=== PATIENT | male | born 1960 | race Caucasian/White ===

== ENCOUNTER → 2016-06-29 | Outpatient (REF) | payer MEDICARE, MEDICAID ==
[~2016-06-29] MED LIST: *BLDWK6; *BLW9; /DIVA50TA PO; /ESOM40CA; /LAMO10TA PO; /OXCA30TA OR; /PANT40TA OR; /PRAV20TA PO; /QUET10TA PO; /QUET25TA OR; ABIL5TAB PO; ALBUTEROL INHALATION; AMITIZA PO; AMO500 PO; ANUSOLHCSU PR; ATARAX OR; ATIV0.5T OR; ATIV0.5T3 PO; AUG875 PO; BACL10TA2 PO; BOOSLIQ PO; CAHNTIXC PO; CAL/VITD PO; CELE100C OR; CELEXA20; CELEXA20 PO; CEPA5.4L2 PO; CHAN0.5P PO; CHLO200T OR; CHLOR5CA PO; CIALIS PO; CLARITIN10 PO; COLA100C2 OR; COLA50CA3 PO; COLACE PO; COMBAER6 IN; COMBIN INH; COMBIVENT INHALATION; COMBRESP INH; DEPA250T2 PO; DEPA500T2 OR; DEPA500T2 PO; DEPAKOT250; DEPAKOTE PO; DIVA250T7 PO; DIVA500T9 PO; DOCU10CA PO; EFFEXOR XR PO; EUCECRE2 TOP; FIBERCON PO; GABA-279 PO; GABA300C3 PO; GABA600T PO; HABITROL14 TOPICAL; HABITROL21 TOPICAL; HABITROL7 TOPICAL; HYDR25TA8 OR; IBUP200C PO; IBUP200T2 PO; IBUP400T OR; IBUP600T26 PO; INVE6TAB3 OR; KLON0.5T OR; KLONOPIN05; LACT10SO PO; LAMICTAL PO; LEVO50TA4 PO; LEXAPRO OR; MAALOX PO; MEGA40SU PO; MEGACE PO; MULTCAP PO; MULTIVIT; MULTIVIT PO; MULTIVITAM PO; NASONEX NASAL; NEUR PO; NEXI40CA PO; NEXI40GR PO; NEXIUM40 PO; NICO21DI4 TD; NICORETTE PO; NICOTROLIN INHALATION; NIZORALCR TOP; NORMSALNS NASAL; OMEP20CA3 PO; OMEP40CA2 PO; OXYC5TAB2 PO; PAXI10TA2 PO; PAXI20TA3 PO; PEPC20TA2 OR; PEPC40TA OR; POTA20TA PO; POTASSIUM CL ER PO; PREDNISO20 PO; PRIL40CA PO; PROTONIX40 PO; PROVENTIL INHALATION; PROZ20CA OR; PROZ20CA11 PO; PROZ40CA OR; QUET1TAB10 PO; QUET1TAB7 PO; REST15CA PO; REST30CA PO; REST7.5C8; ROBITUSSDM PO; SENOKOTTAB PO; SERO200T PO; SERO200T2 PO; SEROQUE200; SUDAFED30 PO; SYNT50TA PO; SYNTH; SYNTHRO075 PO; Synthroid; TRAZ50TA2 PO; TRIL600T OR; TRIL600T PO; TUMS500C PO; VALI2TAB; VIST25CA PO; VITA100066 PO; ZANT150T; ZANTAC150 PO; ZELNORM PO; ZYPR15TA OR; ZYPR2.5T2 PO; ZYPR5TAB2 PO; [UNRECOGNIZED DRUG - CODE] PO; [UNRECOGNIZED DRUG - OTHER] PO; [UNRECOGNIZED DRUG - OTHER] RECTALLY; [UNRECOGNIZED DRUG - OTHER] TOPICAL; [UNRECOGNIZED DRUG - REMARK] INH; ambien PO; campral PO; depakote PO; seroquel PO; sleep med PO; thyroid medication PO
[2016-06-29 16:26] LABS: FREE T4 0.84 NG/DL (0.76-1.46)
== END ==
LOC: M SFHCPLAZ 14:04
PROVIDERS: ATTEND Physician Assistant Medical
DX: E03.9 Hypothyroidism, unspecified (principal)

== ENCOUNTER → 2016-08-25 | Outpatient (CLI) | payer MEDICARE ==
[~2016-08-25] MED LIST changes: +GABA-282 PO; -GABA300C3 PO
--- NOTE | 2016-08-25 13:58 | REP ---
Whole body PET CT scan: The the patient had a new right lower lobe lung nodule identified on CT dated 07/26/2016 in the anterior basal segment right lower lobe adjacent to the dome of the right hemidiaphragm. This nodule was not present on prior CT studies. Whole body PET / CT scan is performed from skull base to the upper thighs. Neck and supraclavicular areas: There are no hypermetabolic foci. There is artifactual uptake in the arytenoids. There is artifactual radiolabeling of a vascular structure in the left upper extremity, likely from radiotracer infusion. Chest: There are no hypermetabolic foci. The nodular density in the right lower lobe demonstrates no radiotracer uptake. The standard uptake value in this new nodular density is 0.4. Abdomen, pelvis and upper thighs: There are no hypermetabolic foci. There is nonspecific bowel uptake. There are no adrenal or hepatic foci. Impression: Negative whole-body PET / CT scan. There are no hypermetabolic foci. The new lung nodule in the lower lobe of the right lung demonstrates no radiotracer uptake. The study is performed with 9.7 mCi of F 18 FDG Signed by Anjel Carlson MD 08/25/2016 01:49 P
== END ==
LOC: M RAD 10:19
PROVIDERS: ATTEND Physician Assistant Medical
DX: R91.1 Solitary pulmonary nodule (principal)
CPT/HCPCS: 78815; A9552

== ENCOUNTER → 2016-09-14 | Outpatient (REF) | payer MEDICARE, OTHER, MEDICAID | LOC: M SFHCPLAZ 11:30 | PROVIDERS: ATTEND Physician Assistant Medical | DX: D22.9 Melanocytic nevi, unspecified (principal); L82.1 Other seborrheic keratosis ==

== ENCOUNTER → 2016-11-29 | Outpatient (CLI) | payer MEDICARE, MEDICAID ==
--- NOTE | 2016-11-29 15:32 | REP ---
MRI LUMBAR SPINE WITHOUT CONTRAST: HISTORY: Back pain. Decreased signal intensity on T2-weighted images is present in the L2-3 through L5-S1 intervertebral discs. The discs are decreased in height. These findings are consistent with disc degeneration. A diffuse disc bulge is present at the L1-2 level. There is minimal compression of the thecal sac. There is hypertrophy of the posterior articulating facets. The L1 nerves exit the neural foramina without compression. A diffuse disc bulge is present at the L2-3 level. There is minimal compression of the thecal sac. There is hypertrophy of the ligamenta flava and posterior articulating facets. The L2 nerves exit the neural foramina without compression. A diffuse disc bulge is present at the L3-4 level. There is hypertrophy of the ligamenta flava and posterior articulating facets. These findings produce minimal central canal stenosis. The L3 nerves exit the neural foramina without compression. A diffuse disc bulge and small disc protrusion central and eccentric to the left are present at the L4-5 level. There is minimal compression of the thecal sac. There is hypertrophy of the posterior articulating facets. The L4 nerves exit the neural foramina without compression. A diffuse disc bulge is present at the L5-S1 level. There is no thecal sac compression. There is hypertrophy of the posterior articulating facets. The L5 nerves exit the neural foramina without compression. The conus medullaris is normal in appearance terminating at the level of the T12-L1 intervertebral disc. Normal signal intensity is present in the lumbar vertebral bodies. IMPRESSION: Diffuse disc bulges at the L1-2 and L2-3 level with minimal thecal sac compression. Minimal central canal stenosis at the L3-4 level secondary to disc bulge, ligamentous and facet hypertrophy. Diffuse disc bulge and small disc protrusion at the L4-5 level with minimal thecal sac compression. Diffuse disc bulge at the L5-S1 level without thecal sac or nerve compression. Signed by Kody Hubbard MD 11/29/2016 03:36 P
== END ==
LOC: M RAD 13:10
PROVIDERS: ATTEND Physician Assistant Medical
DX: M51.26 Other intervertebral disc displacement, lumbar region (principal); M51.27 Other intervertebral disc displacement, lumbosacral region; M48.06 Spinal stenosis, lumbar region

== ENCOUNTER → 2017-01-27 | Outpatient (REF) | payer MEDICARE, MEDICAID, OTHER ==
[2017-01-27 16:39] LABS: ALBUMIN 3.5 GM/DL (3.2-5.2); ALBUMIN/GLOBULIN RATIO 1.25 (1.00-1.93); ALKALINE PHOSPHATASE 72 U/L (45-117); ALT/SGPT 20 U/L (12-78); AST/SGOT 11 U/L (15-37); BILIRUBIN,DIRECT < 0.1 MG/DL (0.0-0.2); BILIRUBIN,TOTAL 0.3 MG/DL (0.2-1.0); TOTAL PROTEIN 6.3 GM/DL (6.4-8.2)
== END ==
LOC: M LAB REF 13:08
PROVIDERS: ATTEND Psychiatry & Neurology Psychiatry
DX: Z51.81 Encounter for therapeutic drug level monitoring (principal); Z79.899 Other long term (current) drug therapy

== ENCOUNTER → 2017-04-05 | Outpatient (CLI) | payer MEDICARE, MEDICAID | LOC: M PAIN 10:45 | PROVIDERS: ATTEND Nurse Practitioner Family | DX: Z53.29 Procedure and treatment not carried out because of patient's decision for other reasons (principal) ==

== ENCOUNTER → 2017-07-01 | Outpatient (REF) | payer MEDICARE, OTHER, MEDICAID ==
[2017-07-01 18:43] LABS: APPEARANCE, URINE CLEAR (CLEAR); BACTERIA, URINE AUTO NEGATIVE (NEGATIVE); BILIRUBIN, URINE AUTO NEGATIVE (NEGATIVE); BLOOD, URINE BLOOD NEGATIVE (NEGATIVE); COLOR, URINE STRAW (YELLOW); GLUCOSE, URINE (UA) AUTO NEGATIVE (NEGATIVE); KETONE, URINE AUTO NEGATIVE (NEGATIVE); LEUKOCYTE ESTERASE, URINE AUTO NEGATIVE (NEGATIVE); NITRITE, URINE AUTO NEGATIVE (NEGATIVE); PROTEIN, URINE AUTO NEGATIVE (NEGATIVE); RBC, URINE AUTO 0 /HPF (0-3); SPECIFIC GRAVITY URINE AUTO 1.006 (1.002-1.035); SQUAMOUS EPITHELIAL CELL UR AU 0 /HPF (0-6); UROBILINOGEN, URINE AUTO 0.2 mg/dL (0.0-2.0); WBC, URINE AUTO 0 /HPF (0-3)
== END ==
LOC: M SFHCPLAZ 16:07
DX: R35.0 Frequency of micturition (principal)
CPT/HCPCS: 81001

== ENCOUNTER → 2017-07-07 | Outpatient (REF) | payer MEDICARE ==
[2017-07-07 15:43] LABS: OSMOLALITY SERUM 300 MOSM/KG (275-295)
[2017-07-07 15:46] LABS: OSMOLALITY URINE 327 MOSM/KG (500-800)
[2017-07-07 15:53] LABS: APPEARANCE, URINE CLEAR (CLEAR); BACTERIA, URINE AUTO NEGATIVE (NEGATIVE); BILIRUBIN, URINE AUTO NEGATIVE (NEGATIVE); BLOOD, URINE BLOOD NEGATIVE (NEGATIVE); COLOR, URINE YELLOW (YELLOW); GLUCOSE, URINE (UA) AUTO NEGATIVE (NEGATIVE); KETONE, URINE AUTO NEGATIVE (NEGATIVE); LEUKOCYTE ESTERASE, URINE AUTO NEGATIVE (NEGATIVE); NITRITE, URINE AUTO NEGATIVE (NEGATIVE); PROTEIN, URINE AUTO NEGATIVE (NEGATIVE); RBC, URINE AUTO 1 /HPF (0-3); SPECIFIC GRAVITY URINE AUTO 1.008 (1.002-1.035); SQUAMOUS EPITHELIAL CELL UR AU 0 /HPF (0-6); UROBILINOGEN, URINE AUTO 0.2 mg/dL (0.0-2.0); WBC, URINE AUTO 0 /HPF (0-3)
[2017-07-07 15:55] LABS: ALBUMIN 3.6 GM/DL (3.2-5.2); ALBUMIN/GLOBULIN RATIO 1.29 (1.00-1.93); ALKALINE PHOSPHATASE 75 U/L (45-117); ALT/SGPT 31 U/L (12-78); ANION GAP 7 MEQ/L (8-16); AST/SGOT 19 U/L (7-37); BILIRUBIN,TOTAL 0.3 MG/DL (0.2-1.0); BLOOD UREA NITROGEN 24 MG/DL (7-18); CARBON DIOXIDE LEVEL 29 MEQ/L (21-32); CHLORIDE LEVEL 107 MEQ/L (98-107); CREATININE FOR GFR 1.03 MG/DL (0.70-1.30); GLOMERULAR FILTRATION RATE > 60.0 (>56); GLUCOSE, FASTING 60 MG/DL (70-100); POTASSIUM SERUM 4.6 MEQ/L (3.5-5.1); SODIUM LEVEL 143 MEQ/L (136-145); TOTAL PROTEIN 6.4 GM/DL (6.4-8.2)
[2017-07-07 16:00] LABS: ESTIMATED AVERAGE GLUCOSE 108 MG/DL (60-110); HEMOGLOBIN A1c 5.4 %
[2017-07-07 16:04] LABS: SODIUM,RANDOM URINE 57 MEQ/L
== END ==
LOC: M SFHCPLAZ 12:09
DX: R35.8 Other polyuria (principal); Z79.899 Other long term (current) drug therapy
CPT/HCPCS: 83930

== ENCOUNTER → 2017-07-27 | Outpatient (CLI) | payer MEDICARE, MEDICAID ==
[~2017-07-27] MED LIST changes: -*BLDWK6; -*BLW9; -/DIVA50TA PO; -/ESOM40CA; -/LAMO10TA PO; -/OXCA30TA OR; -/PANT40TA OR; -/PRAV20TA PO; -/QUET10TA PO; -/QUET25TA OR; -ABIL5TAB PO; -ALBUTEROL INHALATION; -AMITIZA PO; -AMO500 PO; -ANUSOLHCSU PR; -ATARAX OR; -ATIV0.5T OR; -ATIV0.5T3 PO; -AUG875 PO; -BACL10TA2 PO; -BOOSLIQ PO; -CAHNTIXC PO; -CAL/VITD PO; -CELE100C OR; -CELEXA20; -CELEXA20 PO; -CEPA5.4L2 PO; -CHAN0.5P PO; -CHLO200T OR; -CHLOR5CA PO; -CIALIS PO; -CLARITIN10 PO; -COLA100C2 OR; -COLA50CA3 PO; -COLACE PO; -COMBAER6 IN; -COMBIN INH; -COMBIVENT INHALATION; -COMBRESP INH; -DEPA250T2 PO; -DEPA500T2 OR; -DEPA500T2 PO; -DEPAKOT250; -DEPAKOTE PO; -DIVA250T7 PO; -DIVA500T9 PO; -DOCU10CA PO; -EFFEXOR XR PO; -EUCECRE2 TOP; -FIBERCON PO; -GABA-279 PO; -GABA-282 PO; -GABA600T PO; -HABITROL14 TOPICAL; -HABITROL21 TOPICAL; -HABITROL7 TOPICAL; -HYDR25TA8 OR; -IBUP200C PO; -IBUP200T2 PO; -IBUP400T OR; -IBUP600T26 PO; -INVE6TAB3 OR; +ISOVUE-M 300 61% 15ML VIAL (Q9967) As Ordered; -KLON0.5T OR; -KLONOPIN05; -LACT10SO PO; -LAMICTAL PO; -LEVO50TA4 PO; -LEXAPRO OR; +LIDOCAINE 1% SDV INJ 30 ML VIAL As Ordered; -MAALOX PO; -MEGA40SU PO; -MEGACE PO; -MULTCAP PO; -MULTIVIT; -MULTIVIT PO; -MULTIVITAM PO; -NASONEX NASAL; -NEUR PO; -NEXI40CA PO; -NEXI40GR PO; -NEXIUM40 PO; -NICO21DI4 TD; -NICORETTE PO; -NICOTROLIN INHALATION; -NIZORALCR TOP; -NORMSALNS NASAL; -OMEP20CA3 PO; -OMEP40CA2 PO; -OXYC5TAB2 PO; -PAXI10TA2 PO; -PAXI20TA3 PO; -PEPC20TA2 OR; -PEPC40TA OR; -POTA20TA PO; -POTASSIUM CL ER PO; -PREDNISO20 PO; -PRIL40CA PO; -PROTONIX40 PO; -PROVENTIL INHALATION; -PROZ20CA OR; -PROZ20CA11 PO; -PROZ40CA OR; -QUET1TAB10 PO; -QUET1TAB7 PO; -REST15CA PO; -REST30CA PO; -REST7.5C8; -ROBITUSSDM PO; -SENOKOTTAB PO; -SERO200T PO; -SERO200T2 PO; -SEROQUE200; -SUDAFED30 PO; -SYNT50TA PO; -SYNTH; -SYNTHRO075 PO; -Synthroid; -TRAZ50TA2 PO; -TRIL600T OR; -TRIL600T PO; -TUMS500C PO; -VALI2TAB; -VIST25CA PO; -VITA100066 PO; -ZANT150T; -ZANTAC150 PO; -ZELNORM PO; -ZYPR15TA OR; -ZYPR2.5T2 PO; -ZYPR5TAB2 PO; -[UNRECOGNIZED DRUG - CODE] PO; -[UNRECOGNIZED DRUG - OTHER] PO; -[UNRECOGNIZED DRUG - OTHER] RECTALLY; -[UNRECOGNIZED DRUG - OTHER] TOPICAL; -[UNRECOGNIZED DRUG - REMARK] INH; -ambien PO; -campral PO; -depakote PO; +diazePAM 5 MG TAB As Ordered; +methylPREDNISolone SUSP 40 MG/ML (DEPO-medrol) VIAL (J1030) As Ordered; -seroquel PO; -sleep med PO; -thyroid medication PO
== END ==
LOC: M PAIN 08:30
DX: G89.29 Other chronic pain (principal); M51.16 Intervertebral disc disorders with radiculopathy, lumbar region; I50.9 Heart failure, unspecified; D64.9 Anemia, unspecified; N40.0 Benign prostatic hyperplasia without lower urinary tract symptoms; K59.00 Constipation, unspecified; F31.9 Bipolar disorder, unspecified; K64.8 Other hemorrhoids; F17.210 Nicotine dependence, cigarettes, uncomplicated; Z79.899 Other long term (current) drug therapy; Z88.8 Allergy status to other drugs, medicaments and biological substances
CPT/HCPCS: J1030

== ENCOUNTER → 2017-08-18 | Outpatient (CLI) | payer MEDICARE, MEDICAID | LOC: M PAIN 09:00 | DX: M46.1 Sacroiliitis, not elsewhere classified (principal); M51.26 Other intervertebral disc displacement, lumbar region; F17.210 Nicotine dependence, cigarettes, uncomplicated; F31.9 Bipolar disorder, unspecified; N40.0 Benign prostatic hyperplasia without lower urinary tract symptoms; K59.00 Constipation, unspecified; Z79.899 Other long term (current) drug therapy; Z88.8 Allergy status to other drugs, medicaments and biological substances | CPT/HCPCS: G0463 ==

== ENCOUNTER → 2017-10-27 | Outpatient (REF) | payer MEDICARE, MEDICAID | LOC: M SFHCPLAZ 09:30 | DX: R63.4 Abnormal weight loss (principal); Z53.8 Procedure and treatment not carried out for other reasons ==

== ENCOUNTER → 2018-04-19 | Outpatient (REF) | payer MEDICARE, MEDICAID, OTHER ==
[2018-04-19 12:47] LABS: ALBUMIN 3.5 GM/DL (3.2-5.2); ALBUMIN/GLOBULIN RATIO 1.35 (1.00-1.93); ALKALINE PHOSPHATASE 73 U/L (45-117); ALT/SGPT 48 U/L (12-78); ANION GAP 7 MEQ/L (8-16); AST/SGOT 26 U/L (7-37); BILIRUBIN,TOTAL 0.3 MG/DL (0.2-1.0); BLOOD UREA NITROGEN 20 MG/DL (7-18); CALCIUM LEVEL 8.9 MG/DL (8.5-10.1); CARBON DIOXIDE LEVEL 29 MEQ/L (21-32); CHLORIDE LEVEL 105 MEQ/L (98-107); CREATININE FOR GFR 1.11 MG/DL (0.70-1.30); GLOMERULAR FILTRATION RATE > 60.0 (>56); GLUCOSE, FASTING 68 MG/DL (70-100); POTASSIUM SERUM 4.7 MEQ/L (3.5-5.1); SODIUM LEVEL 141 MEQ/L (136-145); TOTAL PROTEIN 6.1 GM/DL (6.4-8.2)
== END ==
LOC: M SFHCPLAZ 10:04
DX: R59.1 Generalized enlarged lymph nodes (principal)
CPT/HCPCS: 80053

== ENCOUNTER → 2018-05-04 | Outpatient (CLI) | payer MEDICARE, MEDICAID | LOC: M RAD 10:09 | DX: M47.896 Other spondylosis, lumbar region (principal); Z96.698 Presence of other orthopedic joint implants | CPT/HCPCS: 78306 ==

== ENCOUNTER → 2018-05-31 | Outpatient (REF) | payer MEDICARE, MEDICAID ==
[~2018-05-31] MED LIST changes: +*BLDWK6; +*BLW9; +/DIVA50TA PO; +/ESOM40CA; +/LAMO10TA PO; +/OXCA30TA OR; +/PANT40TA OR; +/PRAV20TA PO; +/QUET10TA PO; +/QUET25TA OR; +ABIL5TAB PO; +ALBUTEROL INHALATION; +AMITIZA PO; +AMO500 PO; +ANUSOLHCSU PR; +ATARAX OR; +ATIV0.5T OR; +ATIV0.5T3 PO; +AUG875 PO; +BACL10TA2 PO; +BOOSLIQ PO; +CAHNTIXC PO; +CAL/VITD PO; +CELE100C OR; +CELEXA20; +CELEXA20 PO; +CEPA5.4L2 PO; +CHAN0.5P PO; +CHLO200T OR; +CHLOR5CA PO; +CIALIS PO; +CLARITIN10 PO; +COLA100C2 OR; +COLA50CA3 PO; +COLACE PO; +COMBAER6 IN; +COMBIN INH; +COMBIVENT INHALATION; +COMBRESP INH; +DEPA250T2 PO; +DEPA500T2 OR; +DEPA500T2 PO; +DEPAKOT250; +DEPAKOTE PO; +DIVA250T7 PO; +DIVA500T9 PO; +DOCU10CA PO; +EFFEXOR XR PO; +EUCECRE2 TOP; +FIBERCON PO; +GABA-1171 PO; +GABA-843 PO; +GABA600T4 PO; +HABITROL14 TOPICAL; +HABITROL21 TOPICAL; +HABITROL7 TOPICAL; +HYDR25TA8 OR; +IBUP200C PO; +IBUP200T2 PO; +IBUP400T OR; +IBUP600T26 PO; +INVE6TAB3 OR; -ISOVUE-M 300 61% 15ML VIAL (Q9967) As Ordered; +KLON0.5T OR; +KLONOPIN05; +LACT10SO PO; +LAMICTAL PO; +LEVO50TA4 PO; +LEXAPRO OR; -LIDOCAINE 1% SDV INJ 30 ML VIAL As Ordered; +MAALOX PO; +MEGA40SU PO; +MEGACE PO; +MULTCAP PO; +MULTIVIT; +MULTIVIT PO; +MULTIVITAM PO; +NASONEX NASAL; +NEUR PO; +NEXI40CA PO; +NEXI40GR PO; +NEXIUM40 PO; +NICO21DI4 TD; +NICORETTE PO; +NICOTROLIN INHALATION; +NIZORALCR TOP; +NORMSALNS NASAL; +OMEP20CA3 PO; +OMEP40CA2 PO; +OXYC5TAB2 PO; +PAXI10TA2 PO; +PAXI20TA3 PO; +PEPC20TA2 OR; +PEPC40TA OR; +POTA20TA PO; +POTASSIUM CL ER PO; +PREDNISO20 PO; +PRIL40CA PO; +PROTONIX40 PO; +PROVENTIL INHALATION; +PROZ20CA OR; +PROZ20CA11 PO; +PROZ40CA OR; +QUET1TAB10 PO; +QUET1TAB7 PO; +REST15CA PO; +REST30CA PO; +REST7.5C8; +ROBITUSSDM PO; +SENOKOTTAB PO; +SERO200T PO; +SERO200T2 PO; +SEROQUE200; +SUDAFED30 PO; +SYNT50TA PO; +SYNTH; +SYNTHRO075 PO; +Synthroid; +TRAZ50TA2 PO; +TRIL600T OR; +TRIL600T PO; +TUMS500C PO; +VALI2TAB; +VIST25CA PO; +VITA100066 PO; +ZANT150T; +ZANTAC150 PO; +ZELNORM PO; +ZYPR15TA OR; +ZYPR2.5T2 PO; +ZYPR5TAB2 PO; +[UNRECOGNIZED DRUG - CODE] PO; +[UNRECOGNIZED DRUG - OTHER] PO; +[UNRECOGNIZED DRUG - OTHER] RECTALLY; +[UNRECOGNIZED DRUG - OTHER] TOPICAL; +[UNRECOGNIZED DRUG - REMARK] INH; +ambien PO; +campral PO; +depakote PO; -diazePAM 5 MG TAB As Ordered; -methylPREDNISolone SUSP 40 MG/ML (DEPO-medrol) VIAL (J1030) As Ordered; +seroquel PO; +sleep med PO; +thyroid medication PO
[2018-05-31 17:32] LABS: BASO # 0.1 10^3/uL (0.0-0.2); BASO % 1.3 % (0.0-1.0); EOS # 0.3 10^3/uL (0.0-0.50); EOS % 4.7 % (0.0-3.0); HEMATOCRIT 36.9 % (42.0-52.0); HEMOGLOBIN 12.3 g/dl (13.5-17.5); LYMPH # 2.2 10^3/uL (1.5-4.5); LYMPH % 35.9 % (24.0-44.0); MEAN CORPUSCULAR HEMOGLOBIN 31.9 pg (27.0-33.0); MEAN CORPUSCULAR HGB CONC 33.3 g/dl (32.0-36.5); MEAN CORPUSCULAR VOLUME 95.8 fl (80.0-96.0); MONO # 0.7 10^3/uL (0.0-0.8); MONO % 11.9 % (0.0-5.0); NEUTROPHILS # 2.8 10^3/uL (1.8-7.7); PLATELET COUNT, AUTOMATED 252 10^3/uL (150-450); RED BLOOD COUNT 3.85 10^6/uL (4.30-6.10); WHITE BLOOD COUNT 6.1 10^3/uL (4.0-10.0)
== END ==
LOC: M SFHCPLAZ 15:31
PROVIDERS: ATTEND Physician Assistant Medical
DX: K92.1 Melena (principal)
CPT/HCPCS: 36415; 85025; G0463

== ENCOUNTER → 2018-06-08 | Outpatient (REF) | payer MEDICARE, MEDICAID ==
[2018-06-08 12:21] LABS: ALBUMIN 3.6 GM/DL (3.2-5.2); ALT/SGPT 34 U/L (12-78); BILIRUBIN,TOTAL 0.3 MG/DL (0.2-1.0); BLOOD UREA NITROGEN 24 MG/DL (7-18); CALCIUM LEVEL 9.1 MG/DL (8.5-10.1); CARBON DIOXIDE LEVEL 29 MEQ/L (21-32); CHLORIDE LEVEL 108 MEQ/L (98-107); CREATININE FOR GFR 1.16 MG/DL (0.70-1.30); FERRITIN 83 NG/ML (26-388); FREE T4 0.69 NG/DL (0.76-1.46); GLOMERULAR FILTRATION RATE > 60.0 (>56); GLUCOSE, FASTING 62 MG/DL (70-100); IRON (FE) 105 UG/DL (65-175); PERCENT SATURATION 42.3 % (19.7-50.0); POTASSIUM SERUM 4.7 MEQ/L (3.5-5.1); SODIUM LEVEL 142 MEQ/L (136-145); TOTAL IRON BINDING CAPACITY 248 UG/DL (250-450); TOTAL PROTEIN 5.8 GM/DL (6.4-8.2)
[2018-06-08 12:38] LABS: BASO # 0.1 10^3/uL (0.0-0.2); BASO % 1.3 % (0.0-1.0); EOS # 0.2 10^3/uL (0.0-0.50); EOS % 2.7 % (0.0-3.0); HEMATOCRIT 36.8 % (42.0-52.0); HEMOGLOBIN 12.2 g/dl (13.5-17.5); LYMPH # 2.1 10^3/uL (1.5-4.5); LYMPH % 29.8 % (24.0-44.0); MEAN CORPUSCULAR HEMOGLOBIN 31.7 pg (27.0-33.0); MEAN CORPUSCULAR HGB CONC 33.2 g/dl (32.0-36.5); MEAN CORPUSCULAR VOLUME 95.6 fl (80.0-96.0); MONO # 0.9 10^3/uL (0.0-0.8); MONO % 12.4 % (0.0-5.0); NEUTROPHILS # 3.8 10^3/uL (1.8-7.7); NEUTROPHILS % 53.5 % (36.0-66.0); PLATELET COUNT, AUTOMATED 287 10^3/uL (150-450); RED BLOOD COUNT 3.85 10^6/uL (4.30-6.10); WHITE BLOOD COUNT 7.1 10^3/uL (4.0-10.0)
== END ==
LOC: M SFHCPLAZ 09:38
PROVIDERS: ATTEND Physician Assistant Medical
DX: K92.1 Melena (principal); E03.9 Hypothyroidism, unspecified
CPT/HCPCS: 36415; 80053; 82728; 83550; 84439; 84443; 85025; G0463

== ENCOUNTER → 2018-09-05 | Outpatient (REF) | payer MEDICARE, MEDICAID ==
[~2018-09-05] MED LIST changes: -/DIVA50TA PO; -/ESOM40CA; -/LAMO10TA PO; -/OXCA30TA OR; -/PANT40TA OR; -/PRAV20TA PO; -/QUET10TA PO; -/QUET25TA OR; +CHLO1CAP7 PO; -CHLOR5CA PO; +DEPA1TAB3 PO; +LAMI1TAB7 PO; +LEXA1TAB OR; -LEXAPRO OR; +NEXI1CAP3; +PRAV1TAB39 PO; +PROT1TAB2 OR; +SERO1TAB PO; +SERO1TAB3 OR; +TRIL1TAB OR
[2018-09-05 13:51] LABS: FREE T4 0.7 NG/DL (0.76-1.46); THYROID STIMULATING HORMONE 2.88 uIU/ML (0.358-3.740)
== END ==
LOC: M SFHCPLAZ 10:52
PROVIDERS: ATTEND Physician Assistant Medical
DX: E03.9 Hypothyroidism, unspecified (principal)
CPT/HCPCS: 36415; 84439; 84443; G0463

== ENCOUNTER → 2018-09-12 | Outpatient (REF) | payer MEDICARE, MEDICAID ==
[2018-09-12 14:28] LABS: APPEARANCE, URINE CLEAR (CLEAR); BACTERIA, URINE AUTO NEGATIVE (NEGATIVE); BILIRUBIN, URINE AUTO NEGATIVE (NEGATIVE); BLOOD, URINE BLOOD NEGATIVE (NEGATIVE); COLOR, URINE YELLOW (YELLOW); GLUCOSE, URINE (UA) AUTO NEGATIVE (NEGATIVE); KETONE, URINE AUTO NEGATIVE (NEGATIVE); LEUKOCYTE ESTERASE, URINE AUTO NEGATIVE (NEGATIVE); NITRITE, URINE AUTO NEGATIVE (NEGATIVE); PROTEIN, URINE AUTO NEGATIVE (NEGATIVE); RBC, URINE AUTO 0 /HPF (0-3); SPECIFIC GRAVITY URINE AUTO 1.008 (1.002-1.035); SQUAMOUS EPITHELIAL CELL UR AU 0 /HPF (0-6); UROBILINOGEN, URINE AUTO 0.2 mg/dL (0.0-2.0); WBC, URINE AUTO 0 /HPF (0-3)
[2018-09-12 14:37] LABS: ALBUMIN 3.5 GM/DL (3.2-5.2); ALT/SGPT 48 U/L (12-78); BILIRUBIN,TOTAL 0.3 MG/DL (0.2-1.0); BLOOD UREA NITROGEN 25 MG/DL (7-18); CARBON DIOXIDE LEVEL 30 MEQ/L (21-32); CHLORIDE LEVEL 108 MEQ/L (98-107); CREATININE FOR GFR 1.24 MG/DL (0.70-1.30); GLOMERULAR FILTRATION RATE > 60.0 (>56); GLUCOSE, FASTING 63 MG/DL (70-100); MAGNESIUM LEVEL 1.9 MG/DL (1.8-2.4); SODIUM LEVEL 142 MEQ/L (136-145); TOTAL PROTEIN 5.7 GM/DL (6.4-8.2)
== END ==
LOC: M SFHCPLAZ 10:41
PROVIDERS: ATTEND Physician Assistant Medical
DX: R35.0 Frequency of micturition (principal); N40.1 Benign prostatic hyperplasia with lower urinary tract symptoms
CPT/HCPCS: 36415; 51798; 80053; 80164; 81001; 83735; 84153; 87086; G0463

== ENCOUNTER → 2018-09-12 | Outpatient (REF) | payer MEDICARE, MEDICAID ==
[2018-09-12 14:39] LABS: ALBUMIN 3.2 GM/DL (3.2-5.2); ALT/SGPT 50 U/L (12-78); BILIRUBIN,DIRECT < 0.1 MG/DL (0.0-0.2); BILIRUBIN,TOTAL 0.3 MG/DL (0.2-1.0); TOTAL PROTEIN 5.9 GM/DL (6.4-8.2); VALPROIC ACID (DEPAKOTE) 52.1 UG/ML (50.0-100.0)
== END ==
LOC: M LABDRAWP 10:47
PROVIDERS: ATTEND Psychiatry & Neurology Psychiatry
DX: Z51.81 Encounter for therapeutic drug level monitoring (principal); Z79.899 Other long term (current) drug therapy

== ENCOUNTER → 2018-10-20 | Outpatient (REF) | payer MEDICARE, MEDICAID ==
[2018-10-20 12:23] LABS: INR 1.02; PROTHROMBIN TIME 13.5 SECONDS (12.1-14.4)
[2018-10-20 12:24] LABS: PARTIAL THROMBOPLASTIN TIME 33.5 SECONDS (25.4-37.6)
== END ==
LOC: M LABDRAWP 09:45
PROVIDERS: ATTEND Physician Assistant
DX: D69.1 Qualitative platelet defects (principal)

== ENCOUNTER → 2018-12-05 | Outpatient (REF) | payer MEDICARE, MEDICAID ==
[~2018-12-05] MED LIST changes: +BUSP15TA47 PO; +LEVO25TA5 PO; +PROAAER10 INH; +TIZA2TAB4 PO
[2018-12-05 16:06] LABS: BASO # 0.1 10^3/uL (0.0-0.2); BASO % 0.6 % (0.0-1.0); EOS # 0.4 10^3/uL (0.0-0.50); EOS % 3.3 % (0.0-3.0); HEMATOCRIT 34.3 % (42.0-52.0); HEMOGLOBIN 11.8 g/dl (13.5-17.5); LYMPH # 2.1 10^3/uL (1.5-4.5); LYMPH % 19.3 % (24.0-44.0); MEAN CORPUSCULAR HGB CONC 34.4 g/dl (32.0-36.5); MEAN CORPUSCULAR VOLUME 95.8 fl (80.0-96.0); MONO # 1.2 10^3/uL (0.0-0.8); MONO % 10.8 % (0.0-5.0); NEUTROPHILS # 7.2 10^3/uL (1.8-7.7); NEUTROPHILS % 65.7 % (36.0-66.0); PLATELET COUNT, AUTOMATED 226 10^3/uL (150-450); RED BLOOD COUNT 3.58 10^6/uL (4.30-6.10); WHITE BLOOD COUNT 10.9 10^3/uL (4.0-10.0)
[2018-12-05 16:39] LABS: FREE T4 0.64 NG/DL (0.76-1.46); THYROID STIMULATING HORMONE 2.98 uIU/ML (0.358-3.740)
== END ==
LOC: M SFHCPLAZ 14:18
PROVIDERS: ATTEND Physician Assistant Medical
DX: E03.9 Hypothyroidism, unspecified (principal); D53.9 Nutritional anemia, unspecified

== ENCOUNTER → 2018-12-14 | Outpatient (REF) | payer MEDICARE, MEDICAID ==
[~2018-12-14] MED LIST changes: -BUSP15TA47 PO; -LEVO25TA5 PO; -PROAAER10 INH; -TIZA2TAB4 PO
[2018-12-14 12:46] LABS: BASO # 0.1 10^3/uL (0.0-0.2); BASO % 1.3 % (0.0-1.0); EOS # 0.2 10^3/uL (0.0-0.50); EOS % 2.7 % (0.0-3.0); HEMATOCRIT 36.9 % (42.0-52.0); HEMOGLOBIN 12.6 g/dl (13.5-17.5); LYMPH % 29.5 % (24.0-44.0); MEAN CORPUSCULAR HEMOGLOBIN 31.9 pg (27.0-33.0); MEAN CORPUSCULAR HGB CONC 34.1 g/dl (32.0-36.5); MEAN CORPUSCULAR VOLUME 93.4 fl (80.0-96.0); MONO % 14.6 % (0.0-5.0); NEUTROPHILS # 3.5 10^3/uL (1.8-7.7); NEUTROPHILS % 51.6 % (36.0-66.0); PLATELET COUNT, AUTOMATED 271 10^3/uL (150-450); RED BLOOD COUNT 3.95 10^6/uL (4.30-6.10); WHITE BLOOD COUNT 6.8 10^3/uL (4.0-10.0)
[2018-12-14 13:12] LABS: ALBUMIN 3.7 GM/DL (3.2-5.2); ALT/SGPT 41 U/L (12-78); BILIRUBIN,TOTAL 0.5 MG/DL (0.2-1.0); BLOOD UREA NITROGEN 22 MG/DL (7-18); CALCIUM LEVEL 10.4 MG/DL (8.5-10.1); CARBON DIOXIDE LEVEL 29 MEQ/L (21-32); CHLORIDE LEVEL 105 MEQ/L (98-107); CREATININE FOR GFR 1.24 MG/DL (0.70-1.30); FERRITIN 105 NG/ML (26-388); GLOMERULAR FILTRATION RATE > 60.0 (>56); GLUCOSE, FASTING 77 MG/DL (70-100); IRON (FE) 168 UG/DL (65-175); LIPASE 93 U/L (73-393); PERCENT SATURATION 61.8 % (19.7-50.0); POTASSIUM SERUM 4.5 MEQ/L (3.5-5.1); SODIUM LEVEL 141 MEQ/L (136-145); TOTAL IRON BINDING CAPACITY 272 UG/DL (250-450); TOTAL PROTEIN 6.3 GM/DL (6.4-8.2)
== END ==
LOC: M SFHCPLAZ 11:13
PROVIDERS: ATTEND Physician Assistant Medical
DX: D53.9 Nutritional anemia, unspecified (principal); R10.9 Unspecified abdominal pain

== ENCOUNTER → 2019-01-16 | Outpatient (CLI) | payer MEDICARE, MEDICAID ==
--- NOTE | 2019-01-17 12:03 | REP ---
Clinical: Lung screening. History smoking. Comparison: None Technique: Axial low-dose noncontrast images from the thoracic inlet to the upper abdomen using lung screening technique. Findings: The lung guaman are well-aerated. Nodular and vague areas of density in the right lower lobe measure up to approximately 9 mm along with irregular nodular density in the medial left lower lobe measuring up to 10 mm (image 65). Chronic interstitial changes and mild scarring noted. No effusion. No pneumothorax. Impression: Lung-RADS category IV-A. Short-term follow-up examination in 3 months is recommended. Electronically Signed by Hill Avila MD 01/17/2019 06:21 A
== END ==
LOC: M RAD 09:48
PROVIDERS: ATTEND Internal Medicine Pulmonary Disease
DX: F17.218 Nicotine dependence, cigarettes, with other nicotine-induced disorders (principal); J44.9 Chronic obstructive pulmonary disease, unspecified; R91.8 Other nonspecific abnormal finding of lung field

== ENCOUNTER → 2019-01-23 | Outpatient (REF) | payer MEDICARE, MEDICAID ==
[~2019-01-23] MED LIST changes: +BUSP15TA47 PO; +LEVO25TA5 PO; +PROAAER10 INH; +TIZA2TAB4 PO
[2019-01-23 12:57] LABS: BASO # 0.1 10^3/uL (0.0-0.2); BASO % 1.4 % (0.0-1.0); EOS # 0.1 10^3/uL (0.0-0.5); EOS % 2.2 % (0.0-3.0); HEMATOCRIT 34.9 % (42.0-52.0); HEMOGLOBIN 11.8 g/dl (13.5-17.5); LYMPH # 1.8 10^3/uL (1.5-5.0); MEAN CORPUSCULAR HEMOGLOBIN 33.1 pg (27.0-33.0); MEAN CORPUSCULAR HGB CONC 33.8 g/dl (32.0-36.5); MEAN CORPUSCULAR VOLUME 97.8 fl (80.0-96.0); MONO # 0.6 10^3/uL (0.0-0.8); MONO % 11.5 % (0.0-5.0); NEUTROPHILS # 2.9 10^3/uL (1.5-8.5); NEUTROPHILS % 51.5 % (36.0-66.0); PLATELET COUNT, AUTOMATED 265 10^3/uL (150-450); RED BLOOD COUNT 3.57 10^6/uL (4.30-6.10); WHITE BLOOD COUNT 5.6 10^3/uL (4.0-10.0)
[2019-01-23 13:13] LABS: ALBUMIN 3.2 GM/DL (3.2-5.2); BILIRUBIN,TOTAL 0.4 MG/DL (0.2-1.0); CALCIUM LEVEL 9.2 MG/DL (8.5-10.1); CREATININE FOR GFR 1.37 MG/DL (0.70-1.30); FREE T4 0.65 NG/DL (0.76-1.46); GLOMERULAR FILTRATION RATE 56.8 (>56); POTASSIUM SERUM 4.1 MEQ/L (3.5-5.1); THYROID STIMULATING HORMONE 7.14 uIU/ML (0.358-3.740); VALPROIC ACID (DEPAKOTE) 75.7 UG/ML (50.0-100.0)
== END ==
LOC: M SFHCPLAZ 09:46
PROVIDERS: ATTEND Physician Assistant Medical
DX: D64.9 Anemia, unspecified (principal); F41.9 Anxiety disorder, unspecified; R63.4 Abnormal weight loss; E83.52 Hypercalcemia
CPT/HCPCS: 36415; 80053; 80164; 84439; 84443; 85025; G0463

== ENCOUNTER → 2019-04-30 | Outpatient (REF) | payer MEDICARE ==
[2019-04-30 16:49] LABS: AMORPHOUS SEDIMENT SMALL (NEGATIVE); APPEARANCE, URINE CLEAR (CLEAR); BACTERIA, URINE AUTO NEGATIVE (NEGATIVE); BILIRUBIN, URINE AUTO NEGATIVE (NEGATIVE); BLOOD, URINE BLOOD NEGATIVE (NEGATIVE); COLOR, URINE YELLOW (YELLOW); GLUCOSE, URINE (UA) AUTO NEGATIVE (NEGATIVE); KETONE, URINE AUTO NEGATIVE (NEGATIVE); LEUKOCYTE ESTERASE, URINE AUTO NEGATIVE (NEGATIVE); NITRITE, URINE AUTO NEGATIVE (NEGATIVE); PROTEIN, URINE AUTO NEGATIVE (NEGATIVE); RBC, URINE AUTO 2 /HPF (0-3); SPECIFIC GRAVITY URINE AUTO 1.013 (1.002-1.035); SQUAMOUS EPITHELIAL CELL UR AU 0 /HPF (0-6); UROBILINOGEN, URINE AUTO 0.2 mg/dL (0.0-2.0); WBC, URINE AUTO 0 /HPF (0-3)
== END ==
LOC: M SFHCPLAZ 15:43
PROVIDERS: ATTEND Physician Assistant Medical
DX: R30.0 Dysuria (principal)
CPT/HCPCS: 81001; 87086; G0463

== ENCOUNTER → 2019-05-08 | Outpatient (CLI) | payer MEDICARE, MEDICAID ==
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
== END ==
LOC: M PAIN 14:15
PROVIDERS: ATTEND Nurse Practitioner Family
DX: M47.816 Spondylosis without myelopathy or radiculopathy, lumbar region (principal)

== ENCOUNTER → 2019-05-30 | Outpatient (REF) | payer MEDICARE, MEDICAID ==
[2019-05-30 11:08] LABS: FREE T4 0.68 NG/DL (0.76-1.46); THYROID STIMULATING HORMONE 3.31 uIU/ML (0.358-3.740)
== END ==
LOC: M SFHCPLAZ 08:46
PROVIDERS: ATTEND Physician Assistant Medical
DX: E03.9 Hypothyroidism, unspecified (principal)
CPT/HCPCS: 36415; 84439; 84443; G0463

== ENCOUNTER → 2019-07-03 | Outpatient (REF) | payer MEDICARE, MEDICAID ==
[2019-07-03 11:38] LABS: ALBUMIN 3.4 GM/DL (3.2-5.2); ALT/SGPT 40 U/L (12-78); AMYLASE 24 U/L (25-115); BILIRUBIN,TOTAL 0.3 MG/DL (0.2-1.0); BLOOD UREA NITROGEN 25 MG/DL (7-18); CALCIUM LEVEL 9.2 MG/DL (8.5-10.1); CARBON DIOXIDE LEVEL 30 MEQ/L (21-32); CHLORIDE LEVEL 109 MEQ/L (98-107); CREATININE FOR GFR 1.19 MG/DL (0.70-1.30); FREE T4 0.82 NG/DL (0.76-1.46); GLOMERULAR FILTRATION RATE > 60.0 (>56); GLUCOSE, FASTING 71 MG/DL (70-100); LIPASE 90 U/L (73-393); POTASSIUM SERUM 4.2 MEQ/L (3.5-5.1); SODIUM LEVEL 143 MEQ/L (136-145); TOTAL PROTEIN 6.3 GM/DL (6.4-8.2)
== END ==
LOC: M SFHCPLAZ 09:25
PROVIDERS: ATTEND Physician Assistant Medical
DX: R10.11 Right upper quadrant pain (principal); E03.9 Hypothyroidism, unspecified; R30.0 Dysuria

== ENCOUNTER → 2019-07-25 | Outpatient (REF) | payer MEDICARE, MEDICAID ==
[2019-07-25 17:53] LABS: FREE T4 0.92 NG/DL (0.76-1.46); THYROID STIMULATING HORMONE 2.41 uIU/ML (0.358-3.740)
== END ==
LOC: M SFHCPLAZ 13:18
PROVIDERS: ATTEND Physician Assistant Medical
DX: E03.9 Hypothyroidism, unspecified (principal)

== ENCOUNTER → 2019-09-07 | Outpatient (CLI) | payer MEDICARE, MEDICAID | LOC: M PAIN 09:30 | PROVIDERS: ATTEND Anesthesiology | DX: R10.11 Right upper quadrant pain (principal); Z53.29 Procedure and treatment not carried out because of patient's decision for other reasons ==

== ENCOUNTER → 2019-09-07 | Outpatient (CLI) | payer MEDICARE, MEDICAID ==
--- NOTE | 2019-09-11 23:36 | ECWPNPC ---
PATIENT NAME: PREET MCGARRY : 1960 GENDER: MALE VISIT DATE: 09/07/2019 DISCHARGE DATE: 09/07/19 1608 VISIT LOCKED DATE TIME: PHYSICIAN: BETH HILLIARD MD RESOURCE: BETH HILLIARD MD HISTORY OF PRESENT ILLNESS HISTORY OF PRESENT ILLNESS: PAIN THE PATIENT DESCRIBES THE PAIN... PERMISSION FROM PATIENT WAS RECEIVED TO DO TELEPHONE OFFICE VISIT. 59 YEAR OLD MALE PATIENT WITH A HISTORY OF CHRONIC LOW BACK PAIN. THE PATIENT DESCRIBES THE PAIN ACHING, HAVE IT ALL THE TIME, STABBING WITH A PAIN SCORE OF 6-9/10 DEPENDING ON PHYSICAL ACTIVITY. THE PATIENT STATES HE HAS BEEN SUFFERING FROM HIS PAIN FOR MANY YEARS AND IT IS AFFECTING HIS ABILITY TO PERFORM HIS DAILY ACTIVITIES SUCH MOVING AROUND, WORKING AROUND HIS HOUSE, AND CLEANING. THE PATIENT SAYS HE HAS RECEIVED INJECTION THERAPY IN THE PAST. PATIENT DENIES UNEXPLAINABLE WEIGHT LOSS, FEVER, CHILLS, NEW CHANGES ON HIS URINARY OR BOWEL CONTROL. FALL RISK SCREENING: SCREENING :NO FALLS REPORTED IN THE LAST YEAR CURRENT MEDICATIONS TAKING NEXIUM 40 MG CAPSULE DELAYED RELEASE 1 CAPSULE ORALLY TWICE DAILY TAKING ACETAMINOPHEN 500 MG CAPSULE 1 TABLET NEEDED ORALLY EVERY 6 HRS TAKING NAPROXEN 250 MG TABLET 1 TABLET WITH FOOD OR MILK ORALLY TWICE A DAY TAKING DEPAKOTE 500 MG TABLET DELAYED RELEASE 2 TABLET ORALLY BEFORE BEDTIME TAKING SEROQUEL 400 MG TABLET 1 TABLET AT BEDTIME ORALLY ONCE A DAY TAKING BUSPAR 30 MG TABLET 1 TABLET ORALLY BEFORE BEDTIME, NOTES: NOT SURE OF DOSE TAKING LEVOTHROID 75 MCG TABLET 1 TABLET IN THE MORNING ON AN EMPTY STOMACH ORALLY ONCE A DAY NOT-TAKING CARAFATE 1 GM TABLET 1 TABLET ON AN EMPTY STOMACH ORALLY TWICE A DAY NOT-TAKING TIZANIDINE HCL 4 MG TABLET 1 TABLET NEEDED ORALLY THREE TIMES A DAY MEDICATION LIST REVIEWED AND RECONCILED WITH THE PATIENT PAST MEDICAL HISTORY CHF ON MEGACE LEFT ANKLE COMPLEX TALUS FRACTURE, MALUNION 11/27/2013; SUBSEQUENT FUSION 06/17/15 HEMATOCHEZIA-NONTHROMBOSED EXT. HEMORRHOIDS, 01/2016; INT. HEMORRHOIDS, 4 DIMINUTIVE POLYPS @ RETRO SIGMOID COLON, BENIGN & RESECTED & RETRIEVED 02/04/16 FOR 3Y F/U ANEMIA H/O ALCOHOL ABUSE BPH ON DOXAZOSIN CHRONIC CONSTIPATION BILATERAL CATARACT REMOVAL BIPOLAR-IMH 09/09/13DISCHARGED ON PAXIL 10MG QAM, DEPAKOTE 500MG BID, LAMICTAL 100MG BID EATING DISORDER COPD ANXIETY DEPRESSION ALLERGIES HALDOL: AGITATED - ALLERGY MEGACE ORAL: CHF - SIDE EFFECTS - ONSET DATE 09/11/2018 SURGICAL HISTORY LEFT ANKLE ORIF X3 2014, 2015, 2016 HEMORRHOIDECTOMY X 2 HEMANGIOMA LIP CHOLECYSTECTOMY 2009 S/P L TIBIOTALAR CALCANEAL FUSION C ILIAC CREST AUTOGRAFT DR. ZABALA [facility] 06/17/[address] ROB 01/13/[address] ROB 12/2016 L) ANKLE 12/04/18 FAMILY HISTORY FATHER: 58 YRS, DIAGNOSED WITH HYPERTENSION, OTHER MALIGNANT NEOPLASM OF UNSPECIFIED SITE, OTHER SPECIFIED CONDITIONS INFLUENCING HEALTH STATUS MOTHER: 90 YRS, HYPERTENSION, UNSPECIFIED HEART DISEASE, UNSPECIFIED CEREBRAL ARTERY OCCLUSION WITH CEREBRAL INFARCTION 2 BROTHER(S) , 4 SISTER(S) - HEALTHY. DAD OF STOMACHE CA, MOTHER HAS OA AFFECTS HER WALKING\\\\NSIBLINGS 2 BRO.S, 4SISTERS DAD OF STOMACHE CA, MOTHER HAS OA AFFECTS HER WALKING\\\\NSIBLINGS 2 BRO.S, 4SISTERS. SOCIAL HISTORY GENERAL: TOBACCO USE ARE YOU A:CURRENT SMOKER ARE YOU INTERESTED IN QUITTING?THINKING ABOUT QUITTING TRYING TO QUIT COUNSELED THE PATIENT ON SMOKING CESSATION, EDUCATION [id number]/17/2020 HOW MANY CIGARETTES A DAY DO YOU SMOKE?11-20 HOW SOON AFTER YOU WAKE UP DO YOU SMOKE YOUR FIRST CIGARETTE?AFTER 60 MIN HOW OFTEN DO YOU SMOKE CIGARETTES?EVERY DAY PATIENT COUNSELED ON THE DANGERS OF TOBACCO USE AND URGED TO QUIT:06/18/2019 SMOKING CESSATION INFORMATION GIVEN06/18/2019 07/27/17 STATES HE HAS VAPORNO E-CIGARETTENO LATEX QUESTIONNAIRE LATEX ALLERGY : HAVE YOU EVER DEVELOPED ANY TYPE OF REACTION AFTER HANDLING LATEX PRODUCTS SUCH RUBBER GLOVES, CONDOMS, DIAPHRAGMS, BALLOONS, SOCKS, OR UNDERWEAR?NO LATEX ALLERGY : HAVE YOU EVER DEVELOPED ANY TYPE OF REACTION DURING OR AFTER DENTAL APPOINTMENT, VAGINAL/RECTAL EXAMINATION, SURGICAL PROCEDURE, OR ANY OTHER EXPOSURE?NO DATE ASKED : 05/08/2019 LATEX RISK : HAVE YOU EVER HAD ANY DIFFICULTY BREATHING OR HIVES AFTER EATING OR HANDLING ANY FRUITS, OR VEGETABLES; SUCH KIWI, BANANAS, STONE FRUITS, OR CHESTNUTSNO LATEX RISK : DO YOU HAVE A PREVIOUS PERSONAL HISTORY OF MORE THAN NINE SURGERIES, SPINA BIFIDA, OR REPEATED CATHERIZATIONS? YES - PLEASE INDICATE : HX OF SPINA KLEIN LATEX RISK : ARE YOU FREQUENTLY EXPOSED TO LATEX PRODUCTS IN YOUR OCCUPATION?YES BMI CARE GOAL FOLLOW-UP BELOW NORMAL BMI FOLLOW-UPDIETARY EDUCATION FOR WEIGHT GAIN ALCOHOL SCREENING DID YOU HAVE A DRINK CONTAINING ALCOHOL IN THE PAST YEAR?YES HOW OFTEN DID YOU HAVE SIX OR MORE DRINKS ON ONE OCCASION IN THE PAST YEAR?NEVER (0 POINTS) HOW MANY DRINKS DID YOU HAVE ON A TYPICAL DAY WHEN YOU WERE DRINKING IN THE PAST YEAR?1 OR 2 (0 POINTS) HOW OFTEN DID YOU HAVE A DRINK CONTAINING ALCOHOL IN THE PAST YEAR?MONTHLY OR LESS (1 POINT) POINTS1 INTERPRETATIONNEGATIVE RECREATIONAL DRUG USE DRUG USE?NO CAFFEINE CAFFEINE USE?YES HOW OFTEN AND HOW MUCH? 3 CUPS OF COFFEE PER DAY SEXUAL HX HAD SEX IN THE LAST 12 MONTHS (VAGINAL, ORAL, OR ANAL)?NO HAVE YOU EVER HAD AN STD?NO HIV / HEP-C SCREENING HIV TEST OFFERED TO PATIENT:YES DATE OFFERED:09/06/2016 TEST ACCEPTED:NO HEP-C TEST OFFERED TO PATIENT:YES DATE OFFERED:09/06/2016 REASON:PATIENT DECLINED TEST ACCEPTED:NO REASON:PATIENT DECLINED RESTORATION [id number] CATHOLIC LANGUAGE LANGUAGES SPOKEN:[place] EDUCATION LEVEL OF EDUCATION:HIGH SCHOOL LEARNING BARRIERS / SPECIAL NEEDS CHANGE FROM LAST VISIT?NO BARRIERS TO LEARNING?NO HEARING IMPAIRED?NO VISION IMPAIRED?YES COGNITIVELY IMPAIRED?NO :CORRECTIVE LENSES READINESS TO LEARN?YES LEARNING PREFERENCES?NO LEARNING CAPABILITIES PRESENT?YES EMOTIONAL BARRIERS?NO HISTORY OF BIPOLAR DISORDER, ANXIETY AND DEPRESSION SPECIAL DEVICES?NO CORPORATE LAW ASSISTANT NEEDED?NO DOMESTIC VIOLENCE DO YOU FEEL SAFE IN YOUR ENVIRONMENT?YES OCCUPATION: DISABLED. DIET: REGULAR. EXERCISE: NO REGULAR EXERCISE. MARITAL STATUS: SINGLE. NEW PATIENT PAIN DIARY PATIENT DESCRIBES PAIN :ACHING, HAVE IT ALL THE TIME, STABBING FROM 0-10, WHAT LEVEL IS YOUR PAIN TODAY?7 PRECIPITATING FACTORS ACTIVITY ALLEVIATING FACTORS MEDS IMPACT ON FUNCTION SOMETIMES PAIN CLINIC PFS, CLERGY, PUBLIC HEALTH REFERRALS PFS REFERRAL NEEDED?NO CLERGY REFERRAL NEEDED?NO PUBLIC HEALTH REFERRAL NEEDED?NO HAS THE PATIENT BEEN EDUCATED REGARDING HIS/HER PLAN OF CARE?YES HAS THE PATIENT BEEN EDUCATED REGARDING PAIN, THE RISK FOR PAIN, THE IMPORTANCE OF EFFECTIVE PAIN MANAGEMENT, AND THE PAIN ASSESSMENT PROCESS?YES ADVANCE DIRECTIVE ADVANCE DIRECTIVE DISCUSSED WITH PATIENT:YES PT HAS NO ADVANCED DIRECTIVES, DECLINES INFORMATION OR ASSISTANCE AT THIS TIME. READY TO QUIT SMOKING WANTS TO TRY AGAIN READY TO QUIT SMOKING WANTS TO TRY AGAIN REVIEWED 08/18/17 0912 BVNEW PATIENT CONSULT SCREENING 05/08/19 LAS. HOSPITALIZATION/MAJOR DIAGNOSTIC PROCEDURE SURGERIES ABOVE A FEW TIMES LAST IN 2013 [id number] [facility] AFTER FUSION 06/07 06/17-06/25/2015 MENTAL HEALTH- DEPRESSION/ ANXIETY 02/2016 REVIEW OF SYSTEMS REVIEWED BY: PROVIDER: BETH HILLIARD MD . CONSTITUTIONAL: ANY CHANGE IN YOUR MEDICAL CONDITION? NO . CHILLS NO . FEVER NO . INFECTION: DO YOU HAVE NEW INFECTIONS? NO . DO YOU HAVE HISTORY OF MRSA? NO . MUSCULOSKELETAL: ANY NEW PATTERNS OF PAIN OR NUMBNESS? NO . GASTROENTEROLOGY: ANY NEW CHANGE IN BOWEL CONTROL? NO . GENITOURINARY: ANY NEW CHANGE IN BLADDER CONTROL? NO . IS THERE A CHANCE YOU COULD BE ? NO . HEMATOLOGY/LYMPH: DO YOU TAKE ANY BLOOD THINNERS? (FOR EXAMPLE- COUMADIN, PLAVIX, AGGRENOX, PLATEL, PRADAXA, OR XARELTO) NO . WHEN WAS YOUR LAST DOSE? DATE: TIME: . NEUROLOGY: HAVE YOU FALLEN IN THE PAST 12 MONTHS? NO . ANY NEW EXTREMITY NUMBNESS OR WEAKNESS? NO . CARDIOLOGY: DO YOU HAVE A PACEMAKER OR DEFIBRILLATOR? NO . RESPIRATORY: HAVE YOU BEEN SICK IN THE PAST WEEK? NO . FEVER NO . FLU LIKE SYMPTOMS? NO . COUGH NO . INTEGUMENTARY: DO YOU HAVE ANY RASHES OR OPEN SORES? NO . ALLERGIC/IMMUNO: ARE YOU ALLERGIC TO IV DYE? NO . ANY NEW ALLERGIES? NO . PSYCHIATRIC: DO YOU HAVE THOUGHTS OF HURTING YOURSELF OR SOMEONE ELSE? NO . ARE YOU ABUSED, NEGLECTED, OR IN AN UNSAFE ENVIRONMENT? NO . ENDOCRINOLOGY: ARE YOU DIABETIC? NO . OTHER: DO YOU NEED ANY PRESCRIPTIONS? NO . IF YES, PLEASE LIST: ____ . ANY NEW PROBLEMS WITH YOUR MEDICATIONS? NO . WHEN DID YOU LAST EAT? ____ . WHEN DID YOU LAST DRINK? ____ . WHAT DID YOU LAST DRINK? ____ . NAME OF PERSON DRIVING YOU HOME? ____ . DO YOU HAVE ANY OTHER QUESTIONS OR CONCERNS NO . EXAMINATION GENERAL EXAMINATION: TELEPHONE ENCOUNTER. PATIENT IS ALERT O X 3 AND COOPERATIVE. MRI OF THE LUMBAR SPINE DONE ON 03/22/2019 SHOWS FACET ARTHROPATHY CHANGES. ASSESSMENTS SPONDYLOSIS WITHOUT MYELOPATHY OR RADICULOPATHY, LUMBAR REGION - M47.816 (PRIMARY) TREATMENT SPONDYLOSIS WITHOUT MYELOPATHY OR RADICULOPATHY, LUMBAR REGION CLINICAL NOTES: WE DISCUSSED SEVERAL ISSUES WITH MR. MCGARRY'S PAIN MANAGEMENT CASE. I DISCUSSED ABOUT THE OPTION OF DIAGNOSTIC LUMBAR FACET BLOCKS AND RADIOFREQUENCY ABLATION WITH THE PATIENT. THE PATIENT UNDERSTANDS THAT PROCEDURES ARE BEING POSTPONED DUE TO OUR CURRENT SITUATION WITH COVID-19 AND IS WILLING TO WAIT UNTIL WE CAN RESUME. THE PATIENT WILL FOLLOW UP WITH ME IN ONE MONTH TO SEE HOW HE IS DOING. TOTAL TIME FOR TODAY'S TELEPHONE ENCOUNTER WAS 15 MINUTES. INSTRUCTIONS WERE GIVEN, QUESTIONS WERE ANSWERED, PATIENT REPORTS UNDERSTANDING AND AGREES WITH THE PLAN. I, LAMAR FARAH, DOCUMENTED THE ABOVE INFORMATION ACTING A SCRIBE FOR DR. HILLIARD. I HAVE REVIEWED THE ABOVE DOCUMENT, WRITTEN BY LAMAR WILDE AND I VERIFY THAT IT IS ACCURATE. . DISPOSITION & COMMUNICATION FOLLOW UP 4 WEEKS (REASON: F/UP WITH DR Tomlin IN MONTH) ELECTRONICALLY SIGNED BY BETH HILLIARD MD, MD ON 09/11/2019 AT 04:57 PM EDT DISCLAIMER : THIS IS A VISIT SUMMARY EXTRACTED FROM THE [facility] CHART. IT IS NOT A COPY OF THE [facility] PROGRESS NOTE. GHULAM
== END ==
LOC: M PAIN 15:00
PROVIDERS: ATTEND Anesthesiology
DX: M47.816 Spondylosis without myelopathy or radiculopathy, lumbar region (principal); I50.9 Heart failure, unspecified; E03.9 Hypothyroidism, unspecified; F17.210 Nicotine dependence, cigarettes, uncomplicated; Z79.899 Other long term (current) drug therapy; Z88.8 Allergy status to other drugs, medicaments and biological substances

== ENCOUNTER → 2019-09-19 | Outpatient (REF) | payer MEDICARE, MEDICAID ==
[~2019-09-19] MED LIST changes: -TIZA2TAB4 PO; +TIZA2TAB6 PO
[2019-09-19 14:53] LABS: FREE T4 1.09 NG/DL (0.76-1.46); THYROID STIMULATING HORMONE 1.56 uIU/ML (0.358-3.740)
[2019-09-19 19:02] LABS: FOLLICLE STIMULATING HORMONE 47.1 mIU/mL (1.4-18.1); LUTEINIZING HORMONE 34.2 mIU/mL (1.5-9.3)
[2019-09-21 00:06] LABS: TESTOSTERONE FREE (DIRECT) 7.8 pg/mL (7.2-24.0)
== END ==
LOC: M SFHCPLAZ 12:06
PROVIDERS: ATTEND Physician Assistant Medical
DX: E03.9 Hypothyroidism, unspecified (principal); Z12.5 Encounter for screening for malignant neoplasm of prostate
CPT/HCPCS: 36415; 83001; 83002; 84146; 84402; 84403; 84439; 84443; 93005; G0103; G0463

== ENCOUNTER → 2019-10-05 | Outpatient (CLI) | payer MEDICARE, MEDICAID ==
--- NOTE | 2019-10-10 03:38 | ECWPNPC ---
PATIENT NAME: PREET MCGARRY : 1960 GENDER: MALE VISIT DATE: 10/05/2019 DISCHARGE DATE: 10/05/19 0000 VISIT LOCKED DATE TIME: PHYSICIAN: BETH HILLIARD MD RESOURCE: BETH HILLIARD MD REASON FOR APPOINTMENT 1. PRE PROC HISTORY OF PRESENT ILLNESS HISTORY OF PRESENT ILLNESS: PAIN THE PATIENT DESCRIBES THE PAIN... 59 YEAR OLD MALE PATIENT WITH A HISTORY OF CHRONIC LOW BACK PAIN. THE PATIENT DESCRIBES HIS PAIN ACHING, HAVE IT ALL THE TIME, STABBING WITH A PAIN SCORE OF 6-9/10 DEPENDING ON PHYSICAL ACTIVITY. THE PATIENT STATES HIS PAIN STARTS IN HIS LOW BACK AND RADIATES PAIN WITH NUMBNESS DOWN MAINLY HIS LEFT LEG. 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 THE PATIENT SAYS HE HAS A HISTORY OF THREE BACK OPERATIONS, BUT HIS PAIN PERSISTS. THE PATIENT SAYS HE ALSO HAS A HISTORY OF A LEFT ANKLE FRACTURE THAT CAUSES PAIN FOR HIM THERE WELL. PATIENT DENIES UNEXPLAINABLE WEIGHT LOSS, FEVER, CHILLS, NEW CHANGES ON HIS URINARY OR BOWEL CONTROL. FALL RISK SCREENING: SCREENING :NO FALLS REPORTED IN THE LAST YEAR CURRENT MEDICATIONS TAKING ACETAMINOPHEN 500 MG CAPSULE 1 TABLET NEEDED ORALLY EVERY 6 HRS TAKING NAPROXEN 250 MG TABLET 1 TABLET WITH FOOD OR MILK ORALLY TWICE A DAY TAKING DEPAKOTE 500 MG TABLET DELAYED RELEASE 2 TABLET ORALLY BEFORE BEDTIME TAKING LEVOTHYROXINE SODIUM 75 MCG TABLET 1 TABLET IN THE MORNING ON AN EMPTY STOMACH ORALLY ONCE A DAY TAKING NEXIUM 40 MG CAPSULE DELAYED RELEASE 1 CAPSULE ORALLY TWICE DAILY TAKING SEROQUEL 400 MG TABLET 1 TABLET AT BEDTIME ORALLY ONCE A DAY TAKING BUSPAR 30 MG TABLET 1 TABLET ORALLY BEFORE BEDTIME, NOTES: NOT SURE OF DOSE TAKING LINZESS 145 MCG CAPSULE 1 CAPSULE AT LEAST 30 MINUTES BEFORE THE FIRST MEAL OF THE DAY ON AN EMPTY STOMACH ORALLY ONCE A DAY TAKING MIRALAX - POWDER DIRECTED ORALLY DAILY NOT-TAKING LEVOTHROID 75 MCG TABLET 1 TABLET IN THE MORNING ON AN EMPTY STOMACH ORALLY ONCE A DAY NOT-TAKING VIAGRA 25 MG TABLET 1 TABLET NEEDED ORALLY ONCE A DAY MEDICATION LIST REVIEWED AND RECONCILED WITH THE PATIENT PAST MEDICAL HISTORY CHF ON MEGACE LEFT ANKLE COMPLEX TALUS FRACTURE, MALUNION 11/27/2013; SUBSEQUENT FUSION 06/17/15 HEMATOCHEZIA-NONTHROMBOSED EXT. HEMORRHOIDS, 01/2016; INT. HEMORRHOIDS, 4 DIMINUTIVE POLYPS @ RETRO SIGMOID COLON, BENIGN & RESECTED & RETRIEVED 02/04/16 FOR 3Y F/U ANEMIA H/O ALCOHOL ABUSE BPH ON DOXAZOSIN CHRONIC CONSTIPATION BILATERAL CATARACT REMOVAL BIPOLAR-[facility] 09/09/13DISCHARGED ON PAXIL 10MG QAM, DEPAKOTE 500MG BID, LAMICTAL 100MG BID EATING DISORDER COPD ANXIETY DEPRESSION ALLERGIES HALDOL: AGITATED - ALLERGY MEGACE ORAL: CHF - SIDE EFFECTS - ONSET DATE 09/11/2018 SURGICAL HISTORY LEFT ANKLE ORIF X3 2014, 2015, 2016 HEMORRHOIDECTOMY X 2 HEMANGIOMA LIP CHOLECYSTECTOMY 2009 S/P L TIBIOTALAR CALCANEAL FUSION C ILIAC CREST AUTOGRAFT DR. ZABALA [facility] 06/17/[address] ROB 01/13/[address] ROB 12/2016 L) ANKLE 12/04/18 FAMILY HISTORY FATHER: 58 YRS, DIAGNOSED WITH HYPERTENSION, OTHER MALIGNANT NEOPLASM OF UNSPECIFIED SITE, OTHER SPECIFIED CONDITIONS INFLUENCING HEALTH STATUS MOTHER: 90 YRS, HYPERTENSION, UNSPECIFIED HEART DISEASE, UNSPECIFIED CEREBRAL ARTERY OCCLUSION WITH CEREBRAL INFARCTION 2 BROTHER(S) , 4 SISTER(S) - HEALTHY. DAD OF STOMACHE CA, MOTHER HAS OA AFFECTS HER WALKING\\\\NSIBLINGS 2 BRO.S, 4SISTERS DAD OF STOMACHE CA, MOTHER HAS OA AFFECTS HER WALKING\\\\NSIBLINGS 2 BRO.S, 4SISTERS. SOCIAL HISTORY GENERAL: TOBACCO USE ARE YOU A:CURRENT SMOKER ARE YOU INTERESTED IN QUITTING?THINKING ABOUT QUITTING TRYING TO QUIT COUNSELED THE PATIENT ON SMOKING CESSATION, EDUCATION [id number]/15/2020 HOW MANY CIGARETTES A DAY DO YOU SMOKE?11-20 HOW SOON AFTER YOU WAKE UP DO YOU SMOKE YOUR FIRST CIGARETTE?AFTER 60 MIN HOW OFTEN DO YOU SMOKE CIGARETTES?EVERY DAY PATIENT COUNSELED ON THE DANGERS OF TOBACCO USE AND URGED TO QUIT:06/18/2019 SMOKING CESSATION INFORMATION GIVEN06/18/2019 07/27/17 STATES HE HAS VAPORNO E-CIGARETTENO LATEX QUESTIONNAIRE LATEX ALLERGY : HAVE YOU EVER DEVELOPED ANY TYPE OF REACTION AFTER HANDLING LATEX PRODUCTS SUCH RUBBER GLOVES, CONDOMS, DIAPHRAGMS, BALLOONS, SOCKS, OR UNDERWEAR?NO LATEX ALLERGY : HAVE YOU EVER DEVELOPED ANY TYPE OF REACTION DURING OR AFTER DENTAL APPOINTMENT, VAGINAL/RECTAL EXAMINATION, SURGICAL PROCEDURE, OR ANY OTHER EXPOSURE?NO DATE ASKED : 05/08/2019 LATEX RISK : HAVE YOU EVER HAD ANY DIFFICULTY BREATHING OR HIVES AFTER EATING OR HANDLING ANY FRUITS, OR VEGETABLES; SUCH KIWI, BANANAS, STONE FRUITS, OR CHESTNUTSNO LATEX RISK : DO YOU HAVE A PREVIOUS PERSONAL HISTORY OF MORE THAN NINE SURGERIES, SPINA BIFIDA, OR REPEATED CATHERIZATIONS? YES - PLEASE INDICATE : HX OF SPINA KLEIN LATEX RISK : ARE YOU FREQUENTLY EXPOSED TO LATEX PRODUCTS IN YOUR OCCUPATION?YES BMI CARE GOAL FOLLOW-UP BELOW NORMAL BMI FOLLOW-UPDIETARY EDUCATION FOR WEIGHT GAIN ALCOHOL SCREENING DID YOU HAVE A DRINK CONTAINING ALCOHOL IN THE PAST YEAR?YES HOW OFTEN DID YOU HAVE SIX OR MORE DRINKS ON ONE OCCASION IN THE PAST YEAR?NEVER (0 POINTS) HOW MANY DRINKS DID YOU HAVE ON A TYPICAL DAY WHEN YOU WERE DRINKING IN THE PAST YEAR?1 OR 2 (0 POINTS) HOW OFTEN DID YOU HAVE A DRINK CONTAINING ALCOHOL IN THE PAST YEAR?MONTHLY OR LESS (1 POINT) POINTS1 INTERPRETATIONNEGATIVE RECREATIONAL DRUG USE DRUG USE?NO CAFFEINE CAFFEINE USE?YES HOW OFTEN AND HOW MUCH? 3 CUPS OF COFFEE PER DAY SEXUAL HX HAD SEX IN THE LAST 12 MONTHS (VAGINAL, ORAL, OR ANAL)?NO HAVE YOU EVER HAD AN STD?NO HIV / HEP-C SCREENING HIV TEST OFFERED TO PATIENT:YES DATE OFFERED:09/06/2016 TEST ACCEPTED:NO HEP-C TEST OFFERED TO PATIENT:YES DATE OFFERED:09/06/2016 REASON:PATIENT DECLINED TEST ACCEPTED:NO REASON:PATIENT DECLINED SYNAGO[employer]UE [id number] SIKHISM LANGUAGE LANGUAGES SPOKEN:[place] EDUCATION LEVEL OF EDUCATION:HIGH SCHOOL LEARNING BARRIERS / SPECIAL NEEDS CHANGE FROM LAST VISIT?NO BARRIERS TO LEARNING?NO HEARING IMPAIRED?NO VISION IMPAIRED?YES COGNITIVELY IMPAIRED?NO :CORRECTIVE LENSES READINESS TO LEARN?YES LEARNING PREFERENCES?NO LEARNING CAPABILITIES PRESENT?YES EMOTIONAL BARRIERS?NO HISTORY OF BIPOLAR DISORDER, ANXIETY AND DEPRESSION SPECIAL DEVICES?NO TRAPPER ANIMAL NEEDED?NO DOMESTIC VIOLENCE DO YOU FEEL SAFE IN YOUR ENVIRONMENT?YES OCCUPATION: DISABLED. DIET: REGULAR. EXERCISE: NO REGULAR EXERCISE. MARITAL STATUS: SINGLE. NEW PATIENT PAIN DIARY TODAY'S VISIT 10/05/19 PATIENT DESCRIBES PAIN :ACHING, HAVE IT ALL THE TIME, STABBING FROM 0-10, WHAT LEVEL IS YOUR PAIN TODAY?7 PRECIPITATING FACTORS ACTIVITY ALLEVIATING FACTORS MEDS IMPACT ON FUNCTION SOMETIMES PAIN CLINIC PFS, CLERGY, PUBLIC HEALTH REFERRALS PFS REFERRAL NEEDED?NO CLERGY REFERRAL NEEDED?NO PUBLIC HEALTH REFERRAL NEEDED?NO HAS THE PATIENT BEEN EDUCATED REGARDING HIS/HER PLAN OF CARE?YES HAS THE PATIENT BEEN EDUCATED REGARDING PAIN, THE RISK FOR PAIN, THE IMPORTANCE OF EFFECTIVE PAIN MANAGEMENT, AND THE PAIN ASSESSMENT PROCESS?YES ADVANCE DIRECTIVE ADVANCE DIRECTIVE DISCUSSED WITH PATIENT:YES PT HAS NO ADVANCED DIRECTIVES, DECLINES INFORMATION OR ASSISTANCE AT THIS TIME. READY TO QUIT SMOKING WANTS TO TRY AGAIN READY TO QUIT SMOKING WANTS TO TRY AGAIN REVIEWED 08/18/17 0931 BVNEW PATIENT CONSULT SCREENING 05/08/19 LAS. HOSPITALIZATION/MAJOR DIAGNOSTIC PROCEDURE SURGERIES ABOVE A FEW TIMES LAST IN 2013 [id number] [facility] AFTER FUSION 06/07 06/17-06/25/2015 MENTAL HEALTH- DEPRESSION/ ANXIETY 02/2016 REVIEW OF SYSTEMS REVIEWED BY: PROVIDER: . CONSTITUTIONAL: ANY CHANGE IN YOUR MEDICAL CONDITION? NO . CHILLS NO . FEVER NO . INFECTION: DO YOU HAVE NEW INFECTIONS? NO . DO YOU HAVE HISTORY OF MRSA? NO . MUSCULOSKELETAL: ANY NEW PATTERNS OF PAIN OR NUMBNESS? NO . GASTROENTEROLOGY: ANY NEW CHANGE IN BOWEL CONTROL? YES, CONSTIPATED AND IBS . GENITOURINARY: ANY NEW CHANGE IN BLADDER CONTROL? NO . IS THERE A CHANCE YOU COULD BE ? NO . HEMATOLOGY/LYMPH: DO YOU TAKE ANY BLOOD THINNERS? (FOR EXAMPLE- COUMADIN, PLAVIX, AGGRENOX, PLATEL, PRADAXA, OR XARELTO) NO . WHEN WAS YOUR LAST DOSE? DATE: TIME: . NEUROLOGY: HAVE YOU FALLEN IN THE PAST 12 MONTHS? NO . ANY NEW EXTREMITY NUMBNESS OR WEAKNESS? NO . CARDIOLOGY: DO YOU HAVE A PACEMAKER OR DEFIBRILLATOR? NO . RESPIRATORY: HAVE YOU BEEN SICK IN THE PAST WEEK? NO . FEVER NO . FLU LIKE SYMPTOMS? NO . COUGH NO . INTEGUMENTARY: DO YOU HAVE ANY RASHES OR OPEN SORES? NO . ALLERGIC/IMMUNO: ARE YOU ALLERGIC TO IV DYE? NO . ANY NEW ALLERGIES? NO . PSYCHIATRIC: DO YOU HAVE THOUGHTS OF HURTING YOURSELF OR SOMEONE ELSE? NO . ARE YOU ABUSED, NEGLECTED, OR IN AN UNSAFE ENVIRONMENT? NO . ENDOCRINOLOGY: ARE YOU DIABETIC? NO . OTHER: DO YOU NEED ANY PRESCRIPTIONS? NO . IF YES, PLEASE LIST: ____ . ANY NEW PROBLEMS WITH YOUR MEDICATIONS? NO . WHEN DID YOU LAST EAT? ____ . WHEN DID YOU LAST DRINK? ____ . WHAT DID YOU LAST DRINK? ____ . NAME OF PERSON DRIVING YOU HOME? ____ . DO YOU HAVE ANY OTHER QUESTIONS OR CONCERNS NO . VITAL SIGNS WT 123.8 LBS, HT 68 IN, BMI 18.82 INDEX, BP 121/60 MM HG, HR 94 /MIN, RR 18 /MIN, TEMP 97.7 F, OXYGEN SAT % 98, SAFE IN ENV? (Y/N) Y, REVIEWED BY: EM. EXAMINATION GENERAL EXAMINATION: PATIENT IS ALERT O X 3 AND COOPERATIVE. ANTALGIC WALK. PATIENT LIMPING FROM LEFT LEG. LEFT LEG IS WEAKER AT EXTENSION AND FLEXION. STRAIGHT LEG RAISE OF THE LEFT LEG IS POSITIVE AT 40 DEGREES FOR RADICULOPATHY. MRI OF THE LUMBAR SPINE DONE ON 03/22/2019 SHOWS LEFT DISC PROTRUSION AT L4-L5 LEVEL. ASSESSMENTS INTERVERTEBRAL DISC DISORDERS WITH RADICULOPATHY, LUMBAR REGION - M51.16 (PRIMARY) TREATMENT INTERVERTEBRAL DISC DISORDERS WITH RADICULOPATHY, LUMBAR REGION CLINICAL NOTES: WE DISCUSSED SEVERAL ISSUES WITH MR. MCGARRY'S PAIN MANAGEMENT CASE. DUE TO THE LUMBAR RADICULOPATHY, I WOULD LIKE TO MOVE FORWARD WITH A L4-L5 INTERLAMINAR LUMBAR EPIDURAL STEROID INJECTION AT THIS TIME. WE DISCUSSED THE BENEFITS, RISKS, AND ALTERNATIVES OF THE INJECTION AND THE PATIENT WOULD LIKE TO PROCEED. I AM LOOKING FOR LONG LASTING PAIN RELIEF FROM THIS INJECTION FOR THE PATIENT. I DISCUSSED WITH THE PATIENT ABOUT REPLACING KENALOG WITH DEXAMETHASONE, WHICH IS A LESS POTENT STEROID, TO LESSEN THE RISK OF IMMUNOSUPPRESSION. THE PATIENT AGREED ON HAVING BEING TESTED FOR COVID-19 BEFORE THE PROCEDURE. DEPENDING ON THE RESULTS OF THIS INJECTION, I MAY CONSIDER DOING A TRANSFORAMINAL LUMBAR EPIDURAL STEROID INJECTION IN THE FUTURE FOR THE PATIENT, AND POSSIBLY REFERRING THE PATIENT TO AN ORTHOPEDIC SURGEON TO DISCUSS SURGICAL OPTIONS IF THE PATIENT IS INTERESTED. THE PATIENT WILL FOLLOW UP IN SEVERAL WEEKS AFTER HIS INJECTION. INSTRUCTIONS WERE GIVEN, QUESTIONS WERE ANSWERED, PATIENT REPORTS UNDERSTANDING AND AGREES WITH THE PLAN. I, LAMAR FARAH, DOCUMENTED THE ABOVE INFORMATION ACTING A SCRIBE FOR DR. HILLIARD. I HAVE REVIEWED THE ABOVE DOCUMENT, WRITTEN BY LAMAR WILDE AND I VERIFY THAT IT IS ACCURATE. . 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 TY!) ELECTRONICALLY SIGNED BY BETH HILLIARD MD, ON 10/09/2019 AT 12:46 PM EDT DISCLAIMER : THIS IS A VISIT SUMMARY EXTRACTED FROM THE [facility] CHART. IT IS NOT A COPY OF THE [facility] PROGRESS NOTE. MTDD
== END ==
LOC: M PAIN 15:00
PROVIDERS: ATTEND Anesthesiology
DX: M51.16 Intervertebral disc disorders with radiculopathy, lumbar region (principal); M54.5 Low back pain; F17.210 Nicotine dependence, cigarettes, uncomplicated; Z79.899 Other long term (current) drug therapy; Z88.8 Allergy status to other drugs, medicaments and biological substances

== ENCOUNTER → 2019-10-21 | Outpatient (CLI) | payer MEDICARE, MEDICAID ==
[~2019-10-21] MED LIST changes: +BUPR150T3 PO; +FLOM0.4C39 PO; +LEVO75TA4 PO; +NAPR-885 PO; +NYST50SS SS; +PARO5TAB PO; +QUET400T PO
== END ==
LOC: M LABSMTC 11:28
PROVIDERS: ATTEND Anesthesiology
DX: Z11.59 Encounter for screening for other viral diseases (principal)
CPT/HCPCS: C9803; U0003

== ENCOUNTER → 2019-10-24 | Outpatient (CLI) | payer MEDICARE, MEDICAID ==
[~2019-10-24] MED LIST changes: +ISOVUE-M 300 61% 15ML VIAL As Ordered ONE; +LIDOCAINE 1% SDV 30ML VIAL As Ordered ONE; +dexameTHASONE 10MG/1ML VIAL PRES.FREE (J1100 PER 1MG) As Ordered ONE; +diazePAM 5 MG TAB As Ordered ONE
--- NOTE | 2019-10-24 11:03 | REP ---
C-ARM VIEWS LUMBAR SPINE: CLINICAL HISTORY: Pain. Two C-arm views of the lumbar spine performed during epidural injection by Dr. Scherer. A needle is seen at the L4-5 level. 10 seconds of fluoroscopy time utilized. Electronically Signed by Anjel Chavez MD 10/24/2019 12:56 P
--- NOTE | 2019-10-25 01:34 | ECWPNPC ---
PATIENT NAME: PREET MCGARRY : 1960 GENDER: MALE VISIT DATE: 10/24/2019 DISCHARGE DATE: 10/24/19 1005 VISIT LOCKED DATE TIME: PHYSICIAN: BETH HILLIARD MD RESOURCE: BETH HILLIARD MD REASON FOR APPOINTMENT 1. L4-L5 INTERLAMINAR LESI PAT DONE HISTORY OF PRESENT ILLNESS GENERAL: -. FALL RISK SCREENING: SCREENING :NO FALLS REPORTED IN THE LAST YEAR PAIN SCREENING: PATIENT HAS A COMPLAINT OF ACUTE OR CHRONIC PAIN :YES LOCATION OF PAIN:LOW BACK INTENSITY OF PAIN (SCALE OF 1 TO 10):7 WHAT DOES YOUR PAIN FEEL LIKE:ACHING, CONTINOUS NURSING NOTE: -. PAIN CENTER INTAKE QUESTIONS: DO YOU HAVE A HISTORY OF MRSA? :NO DO YOU TAKE A BLOOD THINNERS? :NO DO YOU HAVE ANY BLEEDING DISORDERS? :NO ANY NEW NUMBNESS OR WEAKNESS IN YOUR LEGS OR ARMS? :NO ANY PACEMAKER,DEFIBRILLATOR, OR DORSAL COLUMN STIMULATOR? :NO DO YOU HAVE ANY RASHES OR OPEN SORES? :NO ARE YOU ALLERGIC TO IV DYE? :NO ARE YOU DIABETIC? :NO ANY NEW PROBLEMS WITH YOUR MEDICATIONS? :NO HAVE YOU RECEIVED A VACCINE IN THE PAST 30 DAYS? :NO DO YOU PLAN TO RECEIVE A VACCINE IN THE NEXT 21 DAYS? :NO ANY HISTORY OF SEIZURES? :NO ANY HISTORY OF CARDIAC ISSUES OR EVENTS? :YES PT STATES THAT HE HAS A HX OF HEART FAILURE DO YOU HAVE SLEEP APNEA? :NO ANY RECENT HEAD INJURY? :NO DO YOU HAVE ANY NEW INFECTIONS? :NO WHEN DID YOU LAST EAT? : -10/22 1800 WHEN DID YOU LAST DRINK? : -10/23 0530 WHAT DID YOU LAST DRINK? : -WATER NAME OF PERSON DRIVING YOU HOME? : -VOLUNTARY LABORATORY COORDINATOR DO YOU HAVE ANY OTHER QUESTIONS OR CONCERNS? : - CURRENT MEDICATIONS TAKING LEVOTHYROXINE SODIUM 75 MCG TABLET 1 TABLET IN THE MORNING ON AN EMPTY STOMACH ORALLY ONCE A DAY, NOTES: 10/23 0600 TAKING NEXIUM 40 MG CAPSULE DELAYED RELEASE 1 CAPSULE ORALLY TWICE DAILY, NOTES: 10/22 1700 TAKING SEROQUEL 400 MG TABLET 1 TABLET AT BEDTIME ORALLY ONCE A DAY, NOTES: 10/22 2100 TAKING BUSPAR 30 MG TABLET 1 TABLET ORALLY BEFORE BEDTIME, NOTES: 10/22 2099 TAKING LINZESS 145 MCG CAPSULE 1 CAPSULE AT LEAST 30 MINUTES BEFORE THE FIRST MEAL OF THE DAY ON AN EMPTY STOMACH ORALLY ONCE A DAY, NOTES: 10/21 TAKING MIRALAX - POWDER DIRECTED ORALLY DAILY, NOTES: 10/21 TAKING ESOMEPRAZOLE MAGNESIUM 40 MG CAPSULE DELAYED RELEASE TK 1 C PO BID ORAL , NOTES: 10/22 1700 TAKING PAROXETINE HCL 10 MG TABLET TK 1 T PO QD ORAL , NOTES: 10/22 0800 TAKING ACETAMINOPHEN 500 MG CAPSULE 1 TABLET NEEDED ORALLY EVERY 6 HRS, NOTES: 10/22 1500 TAKING NAPROXEN 250 MG TABLET 1 TABLET WITH FOOD OR MILK ORALLY TWICE A DAY, NOTES: 10/22 08 TAKING DEPAKOTE 500 MG TABLET DELAYED RELEASE 2 TABLET ORALLY BEFORE BEDTIME, NOTES: 10/22 2100 TAKING PAXIL 10 MG TABLET 1 TABLET IN THE MORNING ORALLY ONCE A DAY, NOTES: 10/22 08 NOT-TAKING VIAGRA 25 MG TABLET 1 TABLET NEEDED ORALLY ONCE A DAY MEDICATION LIST REVIEWED AND RECONCILED WITH THE PATIENT PAST MEDICAL HISTORY CHF ON MEGACE LEFT ANKLE COMPLEX TALUS FRACTURE, MALUNION 11/27/2013; SUBSEQUENT FUSION 06/17/15 HEMATOCHEZIA-NONTHROMBOSED EXT. HEMORRHOIDS, 01/2016; INT. HEMORRHOIDS, 4 DIMINUTIVE POLYPS @ RETRO SIGMOID COLON, BENIGN & RESECTED & RETRIEVED 02/04/16 FOR 3Y F/U ANEMIA H/O ALCOHOL ABUSE BPH ON DOXAZOSIN CHRONIC CONSTIPATION BILATERAL CATARACT REMOVAL BIPOLAR-IMH 09/09/13DISCHARGED ON PAXIL 10MG QAM, DEPAKOTE 500MG BID, LAMICTAL 100MG BID EATING DISORDER COPD ANXIETY DEPRESSION ALLERGIES HALDOL: AGITATED - ALLERGY MEGACE ORAL: CHF - SIDE EFFECTS - ONSET DATE 09/11/2018 SURGICAL HISTORY LEFT ANKLE ORIF X3 2013, 2014, 2016 HEMORRHOIDECTOMY X 2 HEMANGIOMA LIP CHOLECYSTECTOMY 2009 S/P L TIBIOTALAR CALCANEAL FUSION C ILIAC CREST AUTOGRAFT DR[facility]ALA [facility] 06/17/[address] ROB 01/13/[address] ROB 12/2016 L) ANKLE 12/04/18 FAMILY HISTORY FATHER: 58 YRS, DIAGNOSED WITH HYPERTENSION, OTHER MALIGNANT NEOPLASM OF UNSPECIFIED SITE, OTHER SPECIFIED CONDITIONS INFLUENCING HEALTH STATUS MOTHER: 90 YRS, HYPERTENSION, UNSPECIFIED HEART DISEASE, UNSPECIFIED CEREBRAL ARTERY OCCLUSION WITH CEREBRAL INFARCTION 2 BROTHER(S) , 4 SISTER(S) - HEALTHY. DAD OF STOMACHE CA, MOTHER HAS OA AFFECTS HER WALKING\\\\NSIBLINGS 2 BRO.S, 4SISTERS DAD OF STOMACHE CA, MOTHER HAS OA AFFECTS HER WALKING\\\\NSIBLINGS 2 BRO.S, 4SISTERS. SOCIAL HISTORY GENERAL: TOBACCO USE ARE YOU A:CURRENT SMOKER ARE YOU INTERESTED IN QUITTING?THINKING ABOUT QUITTING TRYING TO QUIT COUNSELED THE PATIENT ON SMOKING CESSATION, EDUCATION [id number]/15/2020 HOW MANY CIGARETTES A DAY DO YOU SMOKE?11-20 HOW SOON AFTER YOU WAKE UP DO YOU SMOKE YOUR FIRST CIGARETTE?AFTER 60 MIN HOW OFTEN DO YOU SMOKE CIGARETTES?EVERY DAY PATIENT COUNSELED ON THE DANGERS OF TOBACCO USE AND URGED TO QUIT:10/23/2019 SMOKING CESSATION INFORMATION GIVEN06/18/2019 07/27/17 STATES HE HAS VAPORNO E-CIGARETTENO LATEX QUESTIONNAIRE LATEX ALLERGY : HAVE YOU EVER DEVELOPED ANY TYPE OF REACTION AFTER HANDLING LATEX PRODUCTS SUCH RUBBER GLOVES, CONDOMS, DIAPHRAGMS, BALLOONS, SOCKS, OR UNDERWEAR?NO LATEX ALLERGY : HAVE YOU EVER DEVELOPED ANY TYPE OF REACTION DURING OR AFTER DENTAL APPOINTMENT, VAGINAL/RECTAL EXAMINATION, SURGICAL PROCEDURE, OR ANY OTHER EXPOSURE?NO LATEX RISK : HAVE YOU EVER HAD ANY DIFFICULTY BREATHING OR HIVES AFTER EATING OR HANDLING ANY FRUITS, OR VEGETABLES; SUCH KIWI, BANANAS, STONE FRUITS, OR CHESTNUTSNO LATEX RISK : DO YOU HAVE A PREVIOUS PERSONAL HISTORY OF MORE THAN NINE SURGERIES, SPINA BIFIDA, OR REPEATED CATHERIZATIONS? YES - PLEASE INDICATE : HX OF SPINA KLEIN LATEX RISK : ARE YOU FREQUENTLY EXPOSED TO LATEX PRODUCTS IN YOUR OCCUPATION?YES DATE ASKED : 10/23/2019 BMI CARE GOAL FOLLOW-UP BELOW NORMAL BMI FOLLOW-UPDIETARY EDUCATION FOR WEIGHT GAIN ALCOHOL SCREENING DID YOU HAVE A DRINK CONTAINING ALCOHOL IN THE PAST YEAR?YES HOW OFTEN DID YOU HAVE SIX OR MORE DRINKS ON ONE OCCASION IN THE PAST YEAR?NEVER (0 POINTS) HOW MANY DRINKS DID YOU HAVE ON A TYPICAL DAY WHEN YOU WERE DRINKING IN THE PAST YEAR?1 OR 2 (0 POINTS) HOW OFTEN DID YOU HAVE A DRINK CONTAINING ALCOHOL IN THE PAST YEAR?MONTHLY OR LESS (1 POINT) POINTS1 INTERPRETATIONNEGATIVE RECREATIONAL DRUG USE DRUG USE?NO CAFFEINE CAFFEINE USE?YES HOW OFTEN AND HOW MUCH? 3 CUPS OF COFFEE PER DAY SEXUAL HX HAD SEX IN THE LAST 12 MONTHS (VAGINAL, ORAL, OR ANAL)?NO HAVE YOU EVER HAD AN STD?NO HIV / HEP-C SCREENING HIV TEST OFFERED TO PATIENT:YES DATE OFFERED:09/06/2016 TEST ACCEPTED:NO HEP-C TEST OFFERED TO PATIENT:YES DATE OFFERED:09/06/2016 REASON:PATIENT DECLINED TEST ACCEPTED:NO REASON:PATIENT DECLINED MUSLIM [id number] JEW LANGUAGE LANGUAGES SPOKEN:SYRIAC EDUCATION LEVEL OF EDUCATION:HIGH SCHOOL LEARNING BARRIERS / SPECIAL NEEDS CHANGE FROM LAST VISIT?NO BARRIERS TO LEARNING?NO HEARING IMPAIRED?NO VISION IMPAIRED?YES COGNITIVELY IMPAIRED?NO :CORRECTIVE LENSES READINESS TO LEARN?YES LEARNING PREFERENCES?NO LEARNING CAPABILITIES PRESENT?YES EMOTIONAL BARRIERS?NO HISTORY OF BIPOLAR DISORDER, ANXIETY AND DEPRESSION SPECIAL DEVICES?NO SLITTER SCORER NEEDED?NO DOMESTIC VIOLENCE DO YOU FEEL SAFE IN YOUR ENVIRONMENT?YES OCCUPATION: DISABLED. DIET: REGULAR. EXERCISE: NO REGULAR EXERCISE. MARITAL STATUS: SINGLE. NEW PATIENT PAIN DIARY PATIENT DESCRIBES PAIN :ACHING, HAVE IT ALL THE TIME, STABBING FROM 0-10, WHAT LEVEL IS YOUR PAIN TODAY?7 PRECIPITATING FACTORS ACTIVITY ALLEVIATING FACTORS MEDS IMPACT ON FUNCTION SOMETIMES PAIN CLINIC PFS, CLERGY, PUBLIC HEALTH REFERRALS PFS REFERRAL NEEDED?NO CLERGY REFERRAL NEEDED?NO PUBLIC HEALTH REFERRAL NEEDED?NO HAS THE PATIENT BEEN EDUCATED REGARDING HIS/HER PLAN OF CARE?YES HAS THE PATIENT BEEN EDUCATED REGARDING PAIN, THE RISK FOR PAIN, THE IMPORTANCE OF EFFECTIVE PAIN MANAGEMENT, AND THE PAIN ASSESSMENT PROCESS?YES ADVANCE DIRECTIVE ADVANCE DIRECTIVE DISCUSSED WITH PATIENT:YES PT HAS NO ADVANCED DIRECTIVES, DECLINES INFORMATION OR ASSISTANCE AT THIS TIME. HOSPITALIZATION/MAJOR DIAGNOSTIC PROCEDURE SURGERIES ABOVE A FEW TIMES LAST IN 2013 [id number] [facility] AFTER FUSION 06/07 06/17-06/25/2015 MENTAL HEALTH- DEPRESSION/ ANXIETY 02/2016 VITAL SIGNS WT 123.0 LBS, HT 68 IN, BMI 18.70 INDEX, BP 112/54 MM HG, HR 88 /MIN, RR 18 /MIN, TEMP 98.3 F, OXYGEN SAT % 99%, SAFE IN ENV? (Y/N) YES, NA INITIALS AW 0821, REVIEWED BY: RIAZ. EXAMINATION GENERAL EXAMINATION: THE PATIENT IS ALERT, ORIENTED TIMES THREE AND COOPERATIVE. HEART SHOWS REGULAR RHYTHM, NO MURMURS AND NO GALLOPS. LUNGS ARE CLEAR TO AUSCULTATION. ASSESSMENTS INTERVERTEBRAL DISC DISORDERS WITH RADICULOPATHY, LUMBAR REGION - M51.16 (PRIMARY) TREATMENT INTERVERTEBRAL DISC DISORDERS WITH RADICULOPATHY, LUMBAR REGION [facility] FLUORO GUIDE SPINE INJECTION (PAIN)[id number] PROCEDURES PAIN NURSING RECORD PRE-PROCEDURE IV SITE N/A : VALIUM 5 MG GIVEN AT 0912 LAS PROCEDURE IN ROOM 0925, PHYSICIAN IN ROOM 0936, START 938, FINISH 946, PHYSICIAN OUT OF ROOM 0949, OUT OF ROOM 09, STEROID DEXAMETHASONE, O2 RA, ECG NORMAL SINUS, PATIENT SHIELDED YES, SAFETY STRAP YES, PREP BETADINE, DRESSING TEGADERM LOC: 1. ALERT, ORIENTED RESP: 1. REGULAR, NO DYSPNEA COLOR: 1. PINK SKIN: 1. WARM, DRY POSITION: 1. PRONE VITALS: 0930 116/58 75-18-99% 0945 117/76 78-18 99% 1000 121/75 75-18 99% DISCHARGE: POST PAIN 5, DRESSING SITE DRY AND INTACT, IV N/A, GAIT STEADY, TEACHING COMPLETED, PATIENT ACKNOWLEDGES UNDERSTANDING YES, PATIENT DISCHARGED AT 1003 PRE PROCEDURE DIAGNOSIS LUMBAR DISC DISORDER WITH RADICULOPATHY POST PROCEDURE DIAGNOSIS LUMBAR DISC DISORDER WITH RADICULOPATHY PROCEDURE LUMBAR EPIDURAL STEROID INJECTION UNDER FLUOROSCOPIC GUIDANCE SURGEON DR. BETH HILLIARD FARMWORKER POULTRY NONE ANESTHESIA LOCAL PRE PROCEDURE NOTE THE PATIENT HAS A HISTORY OF CHRONIC LOW BACK PAIN. I EVALUATED THE PATIENT AND REVIEWED THE CHART. I WENT OVER THE RISKS, ALTERNATIVES, AND BENEFITS ASSOCIATED WITH THIS PROCEDURE. I DISCUSSED THAT THE USE OF STEROIDS MAY CONTRIBUTE TO IMMUNOSUPPRESSION OF THE PATIENT'S BODY AGAINST INFECTIONS SUCH THE BOOTH VIRUS, COVID-19. THE PATIENT IS AWARE OF THE POTENTIAL COMPLICATIONS ASSOCIATED WITH AN INFECTION OF THIS VIRUS INCLUDING . THE PATIENT WOULD LIKE TO PROCEED AND GIVE CONSENT TO PERFORMED THE PROCEDURE. THE PATIENT DENIES UNEXPLAINABLE WEIGHT LOSS, FEVER, CHILLS, OR NEW CHANGES IN URINARY OR BOWEL CONTROL. THE PATIENT IS COVID-19 NEGATIVE DESCRIPTION OF PROCEDURE THE PATIENT WAS BROUGHT TO THE PROCEDURE ROOM AND PLACED IN THE PRONE POSITION. THE LUMBOSACRAL AREA WAS CLEANED WITH BETADINE SOLUTION AND DRAPED ASEPTICALLY. THE PROCEDURE WAS DONE UNDER STERILE CONDITIONS. I CHECKED LATERALITY AND THE LEVEL WHERE THE PROCEDURE WAS GOING TO BE PERFORMED WITH THE PATIENT AND THE SUPPORTING STAFF AT THE MOMENT OF THE TIME OUT IN THE PROCEDURE ROOM. UNDER FLUOROSCOPIC GUIDANCE, THE TARGET POINT WAS SELECTED AT THE INTERLAMINAR LEVEL OF L4-L5. LIDOCAINE WAS USED TO NUMB THE SKIN AND THE SUBCUTANEOUS TISSUE BELOW IT. EPIDURAL TUOHY NEEDLE, 17-GAUGE, WAS ADVANCED UNDER FLUOROSCOPIC GUIDANCE AND FOLLOWING PATIENT FEEDBACK UNTIL THE EPIDURAL SPACE WAS REACHED 7 CM DEEP INTO THE SKIN BY THE LOSS OF RESISTANCE TECHNIQUE. ISOVUE M DYE 30%, 0.25 ML, WAS INJECTED SHOWING ADEQUATE SPREAD OF THE DYE. THEN, A SOLUTION OF 3 ML OF NORMAL SALINE WITH DEXAMETHASONE 10 MG WAS INJECTED SLOWLY FOLLOWING PATIENT FEEDBACK. THERE WAS NO EVIDENCE OF BLOOD, PARESTHESIA OR CEREBROSPINAL FLUID DURING THE PROCEDURE. THE PATIENT WAS SENT TO THE RECOVERY ROOM. THE PATIENT WAS MOVING THE EXTREMITIES AND DOING WELL. THERE WAS NO COMPLICATION DURING THE PROCEDURE. FLUOROSCOPY TIME WAS 10 SECONDS POST PROCEDURE NOTE IF THE PAIN RETURNS, CONSIDER A TRANSFORMATIONAL EPIDURAL STEROID INJECTION WITH IV SEDATION. THE PATIENT WILL BE SEEN IN A FOLLOW UP IN THE NEXT FEW WEEKS. I AM LOOKING FOR LONG LASTING RELIEF FOR THE PATIENT WITH THIS INTERVENTION. INSTRUCTIONS WERE GIVEN, QUESTIONS WERE ANSWERED, AND THE PATIENT EXPRESSED UNDERSTANDING AND AGREES WITH THE PLAN. THE PATIENT IS AWARE TO STAY HOME FOR THE NEXT WEEK, IF POSSIBLE, DUE TO COVID-19. I, WILLIAMS GARCIA, DOCUMENTED THE ABOVE INFORMATION ACTING A SCRIBE FOR DR. HILILARD. I HAVE REVIEWED THE ABOVE DOCUMENT, WRITTEN BY WILLIAMS GARCIA, THREADER, AND I VERIFY THAT IT IS ACCURATE PROCEDURE CODES [id number] LUMBAR/SACRAL W/ IMAGING DISPOSITION & COMMUNICATION FOLLOW UP F/UP WITH TRAINING AND DEVELOPMENT PROFESSIONAL (REASON: POST LESI L4-L5) ELECTRONICALLY SIGNED BY BETH HILLIARD MD, MD ON 10/24/2019 AT 04:40 PM EDT DISCLAIMER : THIS IS A VISIT SUMMARY EXTRACTED FROM THE [employer] CHART. IT IS NOT A COPY OF THE [employer] PROGRESS NOTE. GHULAM
== END ==
LOC: M PAIN 08:30
PROVIDERS: ATTEND Anesthesiology
DX: M51.16 Intervertebral disc disorders with radiculopathy, lumbar region (principal)
CPT/HCPCS: 62323; J1100; Q9967

== ENCOUNTER 2019-10-28 12:37 | Inpatient (IN) | payer MEDICARE, MEDICAID ==
[~2019-10-28] VITALS: Ht 172.7 cm; Wt 56.8 kg
[~2019-10-28 12:37] MED LIST changes: -BUPR150T3 PO; -FLOM0.4C39 PO; -ISOVUE-M 300 61% 15ML VIAL As Ordered ONE; -LEVO75TA4 PO; -LIDOCAINE 1% SDV 30ML VIAL As Ordered ONE; -NAPR-885 PO; -NYST50SS SS; -PARO5TAB PO; -QUET400T PO; -dexameTHASONE 10MG/1ML VIAL PRES.FREE (J1100 PER 1MG) As Ordered ONE; -diazePAM 5 MG TAB As Ordered ONE
[2019-10-28] MEDS ORDERED: PARO5TAB PO (12:48)
[2019-10-28] MEDS ORDERED: FLOM0.4C39 PO (12:48)
[2019-10-28] MEDS ORDERED: NAPR-885 PO (12:48)
[2019-10-28 13:40] LABS: HEMATOCRIT 35.5 % (42.0-52.0); HEMOGLOBIN 11.6 g/dl (13.5-17.5); MEAN CORPUSCULAR HEMOGLOBIN 31.1 pg (27.0-33.0); MEAN CORPUSCULAR HGB CONC 32.7 g/dl (32.0-36.5); MEAN CORPUSCULAR VOLUME 95.2 fl (80.0-96.0); PLATELET COUNT, AUTOMATED 254 10^3/uL (150-450); RED BLOOD COUNT 3.73 10^6/uL (4.30-6.10); WHITE BLOOD COUNT 7.1 10^3/uL (4.0-10.0)
[2019-10-28 13:55] LABS: AMPHETAMINES LEVEL URINE NEGATIVE (NEGATIVE); BARBITURATES URINE NEGATIVE (NEGATIVE); BENZODIAZEPINES URINE NEGATIVE (NEGATIVE); CANNABINOIDS URINE NEGATIVE (NEGATIVE); COCAINE METABOLITE URINE NEGATIVE (NEGATIVE); METHADONE URINE NEGATIVE (NEGATIVE); OPIATES URINE NEGATIVE (NEGATIVE); PHENCYCLIDINE URINE NEGATIVE (NEGATIVE)
[2019-10-28 14:20] LABS: ACETAMINOPHEN LEVEL < 2.0 UG/ML (10.0-30.0); ALBUMIN 3.6 GM/DL (3.2-5.2); ALT/SGPT 28 U/L (12-78); BILIRUBIN,DIRECT 0.1 MG/DL (0.0-0.2); BILIRUBIN,TOTAL 0.3 MG/DL (0.2-1.0); BLOOD UREA NITROGEN 27 MG/DL (7-18); CARBON DIOXIDE LEVEL 29 MEQ/L (21-32); CHLORIDE LEVEL 106 MEQ/L (98-107); CREATININE FOR GFR 1.27 MG/DL (0.70-1.30); ETHYL ALCOHOL (ETHANOL) < 0.003 % (0.000-0.010); GLOMERULAR FILTRATION RATE > 60.0 (>56); GLUCOSE, FASTING 103 MG/DL (70-100); POTASSIUM SERUM 4.5 MEQ/L (3.5-5.1); SALICYLATE LEVEL < 1.7 MG/DL (5.0-30.0); SODIUM LEVEL 141 MEQ/L (136-145); TOTAL PROTEIN 6.1 GM/DL (6.4-8.2)
[2019-10-28] MEDS ORDERED: QUET400T PO (15:26)
[2019-10-28] MEDS ORDERED: LEVO75TA4 PO (15:26)
[2019-10-28] MEDS ORDERED: NYST50SS SS (15:28)
[2019-10-28] MEDS ORDERED: MAALOX 30 ML SUSP *UDC PO PRN (15:45)
[2019-10-28] MEDS ORDERED: CALCIUM CARBONATE 500 MG CHEW U/D PO PRN (15:45)
[2019-10-28] MEDS ORDERED: MOM 30ML SUSPENSION UDC PO PRN (15:45)
[2019-10-28] MEDS ORDERED: OLANZapine ORAL DISINTEGRATING TAB 5MG PO PRN (15:45)
[2019-10-28] MEDS ORDERED: traZODone 50 MG TAB PO PRN (15:45)
[2019-10-28 16:06] LABS: VALPROIC ACID (DEPAKOTE) 48.6 UG/ML (50.0-100.0)
[2019-10-28 16:19] VITALS: BP 113/65
[2019-10-28] MEDS: NICOTINE 14 MG/24 HR TRANSDERMAL TD SCH (17:11)
[2019-10-28] MEDS: NAPROXEN 250 MG TAB PO SCH (20:37)
[2019-10-28] MEDS: DIVALPROEX 500MG *ER* TAB PO SCH (20:37)
[2019-10-28] MEDS: QUEtiapine FUMARATE 200 MG TAB PO SCH (20:37)
[2019-10-28] MEDS: busPIRone 5 MG TAB PO SCH (20:37)
[2019-10-28] MEDS: NYSTATIN 500,000 U/5 ML SUSP UDC SS SCH (20:40)
[2019-10-29 05:58] VITALS: BP 120/63
[2019-10-29] MEDS: LEVOTHYROXINE 75MCG TABLET (0.075MG) PO SCH (06:21)
[2019-10-29] MEDS: NYSTATIN 500,000 U/5 ML SUSP UDC SS SCH ×4 (08:43→20:41)
[2019-10-29] MEDS: NAPROXEN 250 MG TAB PO SCH ×2 (08:46→20:41)
[2019-10-29] MEDS: NICOTINE 14 MG/24 HR TRANSDERMAL TD SCH (08:46)
[2019-10-29] MEDS: busPIRone 5 MG TAB PO SCH (08:46)
[2019-10-29] MEDS: PANTOPRAZOLE 40MG TAB (PROTONIX) PO SCH (08:47)
[2019-10-29] MEDS: TAMSULOSIN 0.4 MG CAP PO SCH (08:47)
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
[2019-10-29] MEDS: NICOTINE 21MG/24HR 1 EA TRANSDERMAL TD SCH (09:36)
[2019-10-29] MEDS ORDERED: buPROPion **XL** TABLET 150MG (WELLBUTRIN XL) PO ONE (10:45)
[2019-10-29] MEDS ORDERED: MIRALAX *UNIT DOSE* 17GM PACKET PO PRN (13:45)
[2019-10-29] MEDS ORDERED: ACETAMINOPHEN 500 MG TAB PO PRN (13:45)
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
[2019-10-29 16:46] VITALS: BP 110/62
[2019-10-29] MEDS: DOCUSATE SODIUM 100 MG CAP PO SCH (20:40)
[2019-10-29] MEDS: busPIRone 10 MG TAB PO SCH (20:40)
[2019-10-29] MEDS: DIVALPROEX 500MG *ER* TAB PO SCH (20:40)
[2019-10-29] MEDS: QUEtiapine FUMARATE 200 MG TAB PO SCH (20:40)
[2019-10-29] MEDS: CEPACOL LOZENGE PO PRN ×2 (20:40→23:33)
[2019-10-30 06:05] VITALS: BP 130/64
[2019-10-30] MEDS: LEVOTHYROXINE 75MCG TABLET (0.075MG) PO SCH (06:39)
[2019-10-30] MEDS: CEPACOL LOZENGE PO PRN ×2 (07:35→09:43)
[2019-10-30] MEDS: NAPROXEN 250 MG TAB PO SCH (08:23)
[2019-10-30] MEDS: busPIRone 10 MG TAB PO SCH (08:23)
[2019-10-30] MEDS: DOCUSATE SODIUM 100 MG CAP PO SCH (08:23)
[2019-10-30] MEDS: TAMSULOSIN 0.4 MG CAP PO SCH (08:23)
[2019-10-30] MEDS: NICOTINE 21MG/24HR 1 EA TRANSDERMAL TD SCH (08:24)
[2019-10-30] MEDS: PANTOPRAZOLE 40MG TAB (PROTONIX) PO SCH (08:24)
[2019-10-30] MEDS: NYSTATIN 500,000 U/5 ML SUSP UDC SS SCH (08:24)
[2019-10-30] MEDS ORDERED: buPROPion **XL** TABLET 150MG (WELLBUTRIN XL) PO SCH (09:00)
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
[2019-10-30] MEDS ORDERED: BUPR150T3 PO (10:02)
== END 2019-10-30 11:43 | disposition home or self-care (01) | DRG 885 ==
LOC: M ED 12:37 → M ED INP 15:44 → M PSY 16:15
PROVIDERS: ADMIT Psychiatry & Neurology Addiction Medicine; ATTEND Psychiatry & Neurology Addiction Medicine
DX: F33.9 Major depressive disorder, recurrent, unspecified (principal); F43.10 Post-traumatic stress disorder, unspecified; Z79.899 Other long term (current) drug therapy; Z88.8 Allergy status to other drugs, medicaments and biological substances

== ENCOUNTER → 2019-12-01 | Outpatient (CLI) | payer MEDICARE, MEDICAID ==
[~2019-12-01] MED LIST changes: +BUPR150T3 PO; +CELE1CAP9 PO; +FLOM0.4C39 PO; +LEVO75TA4 PO; +NAPR-885 PO; +NICO21PAT TD; +NYST50SS SS; +PARO5TAB PO; +QUET400T PO; +TRAZ-252 PO; +TREL1AER INH
== END ==
LOC: M LABSMTC 08:29
PROVIDERS: ATTEND Anesthesiology
DX: Z01.818 Encounter for other preprocedural examination (principal); Z11.59 Encounter for screening for other viral diseases
CPT/HCPCS: C9803; U0003

== ENCOUNTER 2020-01-03 09:35 | Day surgery (SDC) | payer MEDICARE, MEDICAID ==
[~2020-01-03 09:35] MED LIST changes: -CELE1CAP9 PO; +LIDOCAINE 2% 100MG/5ML SDV (FOR ANES.) As Ordered ONE; -NICO21PAT TD; -TRAZ-252 PO; -TREL1AER INH
[2020-01-03] MEDS ORDERED: fentaNYL 100 MCG/2 ML INJECTION (J3010) As Ordered ONE (09:43)
[2020-01-03] MEDS ORDERED: propofoL 500 MG/50 ML VIAL As Ordered ONE (09:44)
--- NOTE | 2020-01-30 11:34 | ROOR ---
Patient Name: Raad Patel Procedure Date: 01/03/2020 10:11 AM Date of : 1960 Age: 59 Room: [facility] Gender: Male Note Status: Finalized Procedure: Colonoscopy Indications: Change in bowel habits Providers: Gildardo ROB MD Referring MD: Marynan EAST Requesting Provider: Medicines: Monitored Anesthesia Care Complications: No immediate complications. Procedure: Pre-Anesthesia Assessment: - The heart rate, respiratory rate, oxygen saturations, blood pressure, adequacy of pulmonary ventilation, and response to care were monitored throughout the procedure. The Colonoscope was introduced through the anus and advanced to the cecum, identified by appendiceal orifice and ileocecal valve. The colonoscopy was performed with difficulty due to inadequate bowel prep. The patient tolerated the procedure well. The quality of the bowel preparation was poor. Findings: The perianal and digital rectal examinations were normal. (Colon Prep was POOR, Inadequate Visualisation) The colon is grossly normal without large tumors or obstructing lesions. Unable to perform adequate detail examination. Small lesions may have been missed. Impression: - (Colon Prep was POOR, Inadequate Visualisation) - The colon is grossly normal without large tumors or obstructing lesions. Unable to perform adequate detail examination. Small lesions may have been missed. - No specimens collected. Recommendation: - Repeat colonoscopy at the next available appointment because the bowel preparation was poor. - My office will call you to reschedule the procedure. - (Rec alternate colon preparation for next colonoscopy) Gildardo ROB MD 01/03/2020 10:59:01 AM Number of Addenda: 0 Note Initiated On: 01/03/2020 10:11 AM Estimated Blood Loss: Estimated blood loss: none.
--- NOTE | 2020-01-30 11:34 | ROOR ---
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 Procedure: Pre-Anesthesia Assessment: - The heart rate, respiratory rate, oxygen saturations, blood pressure, adequacy of pulmonary ventilation, and response to care were monitored throughout the procedure. The Endoscope was introduced through the mouth, and advanced to the second part of duodenum. The upper GI endoscopy was accomplished without difficulty. The patient tolerated the procedure well. Findings: The esophagus was normal. The stomach was normal. (large volume) The examined duodenum was normal. Impression: - Normal esophagus. - Normal stomach. - Normal examined duodenum. - No specimens collected. Recommendation: - Observe patient's clinical course. - Eat smaller, more frequent meals throughout the day. - Low fat diet. - Liquid/soft foods are tolerated better than solid foods. - Low fiber/well cooked vegetables are tolerated better than high fiber/fibrous foods/raw vegetables. - Avoid medications that inhibit gastric/intestinal motility such as narcotic medications. Gildardo Martinez MD Gildardo MARTINEZ MD 01/03/2020 10:34:51 AM Electronically signed by Gildardo MARTINEZ MD Number of Addenda: 0 Note Initiated On: 01/03/2020 10:11 AM Estimated Blood Loss: Estimated blood loss: none.
== END 2020-01-03 11:55 | disposition home or self-care (01) ==
LOC: M SDC 09:35
PROVIDERS: ATTEND Internal Medicine Gastroenterology
DX: R19.4 Change in bowel habit (principal); R12 Heartburn; Z79.899 Other long term (current) drug therapy; Z88.8 Allergy status to other drugs, medicaments and biological substances; Z80.0 Family history of malignant neoplasm of digestive organs
CPT/HCPCS: 43235; 45378; J3010

== ENCOUNTER 2020-01-19 13:43 | Inpatient (IN) | payer MEDICARE, MEDICAID ==
[~2020-01-19] VITALS: Ht 172.7 cm; Wt 54.5 kg
[2020-01-19] MEDS: NICOTINE 21MG/24HR 1 EA TRANSDERMAL TD SCH (09:00)
[~2020-01-19 13:43] MED LIST changes: -LIDOCAINE 2% 100MG/5ML SDV (FOR ANES.) As Ordered ONE
[2020-01-19] MEDS ORDERED: TREL1AER INH (14:30)
[2020-01-19] MEDS ORDERED: CELE1CAP9 PO (14:30)
[2020-01-19 15:01] LABS: ACETAMINOPHEN LEVEL < 2.0 UG/ML (10.0-30.0); ALBUMIN 3.6 GM/DL (3.2-5.2); ALT/SGPT 37 U/L (12-78); BILIRUBIN,DIRECT < 0.1 MG/DL (0.0-0.2); BILIRUBIN,TOTAL 0.3 MG/DL (0.2-1.0); BLOOD UREA NITROGEN 22 MG/DL (7-18); CALCIUM LEVEL 9.9 MG/DL (8.5-10.1); CARBON DIOXIDE LEVEL 28 MEQ/L (21-32); CHLORIDE LEVEL 107 MEQ/L (98-107); CREATININE FOR GFR 1.27 MG/DL (0.70-1.30); ETHYL ALCOHOL (ETHANOL) < 0.003 % (0.000-0.010); GLOMERULAR FILTRATION RATE > 60.0 (>56); GLUCOSE, FASTING 119 MG/DL (70-100); LIPASE 141 U/L (73-393); POTASSIUM SERUM 4.5 MEQ/L (3.5-5.1); SALICYLATE LEVEL < 1.7 MG/DL (5.0-30.0); SODIUM LEVEL 141 MEQ/L (136-145); TOTAL PROTEIN 6.6 GM/DL (6.4-8.2)
[2020-01-19 15:05] LABS: HEMOGLOBIN 12.7 g/dl (13.5-17.5); MEAN CORPUSCULAR HGB CONC 33.4 g/dl (32.0-36.5); MEAN CORPUSCULAR VOLUME 95.7 fl (80.0-96.0); PLATELET COUNT, AUTOMATED 456 10^3/uL (150-450); RED BLOOD COUNT 3.97 10^6/uL (4.30-6.10); WHITE BLOOD COUNT 7.3 10^3/uL (4.0-10.0)
[2020-01-19 15:18] LABS: AMPHETAMINES LEVEL URINE NEGATIVE (NEGATIVE); BARBITURATES URINE NEGATIVE (NEGATIVE); BENZODIAZEPINES URINE NEGATIVE (NEGATIVE); CANNABINOIDS URINE NEGATIVE (NEGATIVE); COCAINE METABOLITE URINE NEGATIVE (NEGATIVE); METHADONE URINE NEGATIVE (NEGATIVE); OPIATES URINE NEGATIVE (NEGATIVE); PHENCYCLIDINE URINE NEGATIVE (NEGATIVE)
[2020-01-19] MEDS ORDERED: MOM 30ML SUSPENSION UDC PO PRN (16:15)
[2020-01-19] MEDS ORDERED: traZODone 50 MG TAB PO PRN (16:15)
[2020-01-19] MEDS ORDERED: MAALOX 30 ML SUSP *UDC PO PRN (16:15)
[2020-01-19 17:15] VITALS: BP 121/79
[2020-01-19] MEDS: IBUPROFEN 600MG TAB PO PRN (17:26)
[2020-01-19] MEDS ORDERED: CALCIUM CARBONATE 500 MG CHEW U/D PO PRN (18:45)
[2020-01-19] MEDS: busPIRone 10 MG TAB PO SCH (22:01)
[2020-01-19] MEDS: DIVALPROEX 500MG *ER* TAB PO SCH (22:01)
[2020-01-19] MEDS: QUEtiapine FUMARATE 200 MG TAB PO SCH (22:01)
[2020-01-19] MEDS: ACETAMINOPHEN TAB 650MG DOSE (2X325MG) PO PRN (22:02)
[2020-01-20] MEDS: LEVOTHYROXINE 75MCG TABLET (0.075MG) PO SCH (06:24)
[2020-01-20 06:30] VITALS: BP 111/56
[2020-01-20] MEDS: TAMSULOSIN 0.4 MG CAP PO SCH (09:01)
[2020-01-20] MEDS: PANTOPRAZOLE 40MG TAB (PROTONIX) PO SCH (09:01)
[2020-01-20] MEDS: NICOTINE 21MG/24HR 1 EA TRANSDERMAL TD SCH (09:01)
[2020-01-20] MEDS: busPIRone 10 MG TAB PO SCH ×2 (09:01→20:23)
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
[2020-01-20] MEDS: diphenhydrAMINE 12.5MG/5ML ELIXIR UDC PO PRN ×2 (12:43→20:26)
[2020-01-20] MEDS: IBUPROFEN 600MG TAB PO PRN ×2 (14:06→20:23)
[2020-01-20] MEDS: ACETAMINOPHEN TAB 650MG DOSE (2X325MG) PO PRN ×2 (16:53→23:37)
[2020-01-20 18:23] VITALS: BP 106/60
[2020-01-20] MEDS: DIVALPROEX 500MG *ER* TAB PO SCH (20:23)
[2020-01-20] MEDS: QUEtiapine FUMARATE 200 MG TAB PO SCH (20:23)
[2020-01-20] MEDS: CEPACOL LOZENGE PO PRN (23:37)
[2020-01-21] MEDS: diphenhydrAMINE 12.5MG/5ML ELIXIR UDC PO PRN (02:30)
[2020-01-21] MEDS: LEVOTHYROXINE 75MCG TABLET (0.075MG) PO SCH (06:18)
[2020-01-21 06:24] VITALS: BP 130/64
[2020-01-21] MEDS: TAMSULOSIN 0.4 MG CAP PO SCH (08:10)
[2020-01-21] MEDS: PANTOPRAZOLE 40MG TAB (PROTONIX) PO SCH (08:10)
[2020-01-21] MEDS: busPIRone 10 MG TAB PO SCH (08:10)
[2020-01-21] MEDS: NICOTINE 21MG/24HR 1 EA TRANSDERMAL TD SCH (08:10)
[2020-01-21] MEDS: ACETAMINOPHEN TAB 650MG DOSE (2X325MG) PO PRN (08:18)
[2020-01-21] MEDS: CEPACOL LOZENGE PO PRN (09:13)
[2020-01-21] MEDS ORDERED: TRAZ-252 PO (11:55)
[2020-01-21] MEDS ORDERED: NICO21PAT TD (12:44)
--- NOTE | 2020-01-21 15:15 | MHDSPDOC ---
[facility] Discharge Summary Discharge Summary DATE OF ADMISSION: Jan 19, 2020 at 16:14 DATE OF DISCHARGE: Jan 21, 2020 at 13:55 DISCHARGE DIAGNOSES: 1. Bipolar Disorder, per patient's history 2. Left Wrist Fx, Cast in place, patient to follow up with his ortho MD as previously scheduled. 3. COPD 4. Hypothyroid 5. Chronic Back Pain REASON FOR ADMISSION: Patient is a59 year old Single, Disabled Male who is admitted to the [facility] after reporting suicidal ideation with no planning but stated in interview "It's easy enough to do if I really want to" CONSULTANTS INVOLVED: Please see consultation report by Dr. Selina Bermeo TREATMENT AND PROGRESS ON THE UNIT : Patient was afforded Individual and Group Therapy, Psychopharmacologic Therapy and Safe Environment HOSPITAL COURSE: Patient admitted to [facility] for suicidal ideation, he was started on his home medications. Due to a previous override of Seroquel I was unable to reorder Seroquel for him. I did however increased Trazodone to 100 mg for sleep. He reports that he takes Seroquel for sleep. He verbalized understanding regarding Seroquel could not be reordered. DISCHARGE ASSESSMENT: Patient is safe for discharge. He is reporting no thoughts of self harm to self or others. He denies abnormal psychiatric symptoms of depression or anxiety/. MENTAL STATUS EXAMINATION ON DISCHARGE: Patient is a 59 -year old Single, Disabled male, who is self-presented to ED for suicidal ideation after he was unable to open medication bottle. He reports increased frustration with being casted with his left hand which he reports is his dominant hand. In today's interview patient was very argumentative and reporting being very angry with several staff on the unit. He reports a long history of frustration with other people in his life. He presents with cluster B personality traits. He was very aggressive in his reports of staff and was very angry when he felt that this signwriter was not listening to him intently. Patient was de-escalated in the interview and he apologized. He states that he is worried about his dog. He states that a friend is caring for the dog while he is in the hospital but he felt that he no longer needed the admission as he was no longer suicidal and felt that his depression was mild. Speech is Loud, pressured initially in the interview and became normal rate tone and volume Language skills are Fair Thought processes including: linear and goal oriented Thought content: Patient reports no suicidal/homicidal ideation, planning or intent. He denies depression or anxiety. He is not observed and denies psychosis, mallika, paranoia, delusions or obsessions Abstract reasoning, and computation: Fair Description of associations: Negative Description of abnormal or psychotic thoughts: Denies symptoms Judgment: Fair Insight: Fair Orientation to Alert and oriented to person place and time Recent and remote memory: Intact Attention span and concentration: Fair Language: Fair Fund of knowledge: Average Mood: Moderately irritable Affect: Flat MEDICATIONS ON DISCHARGE: See Discharge Medication List PLAN/FOLLOWUP ARRANGEMENTS: Patient following up with [facility] with his PCP The amount of time spent in the coordination of care for this patient was approximately 45 minutes. Vital Signs/I&Os Vital Signs Date Time Temp Pulse Resp B/P (MAP) Pulse Ox O2 Delivery O2 Flow Rate FiO2 01/21/20 06:24 98.7 85 16 130/64 (86) 01/20/20 18:23 100 Room Air Medications Scheduled Buspirone HCl (Buspirone HCl) 15 Mg Tablet, 30 MG PO BID, (Reported) Celecoxib (Celecoxib) 200 Mg Capsule, 200 MG PO DAILY for ., (Reported) Divalproex Sodium (Divalproex Sodium ER) 500 Mg Tab, 1,000 MG PO QHS for MOOD, (Reported) Esomeprazole Magnesium (Nexium) 40 Mg Cap, 40 MG PO DAILY for GERD, (Reported) Fluticasone/Umeclidin/Vilanter (Trelegy Ellipta 100-62.5-25) 1 Each Blst.w.dev, 1 PUFF INH DAILY, (Reported) Levothyroxine Sodium (Levothyroxine Sodium) 75 Mcg Tablet, 75 MCG PO QAM, (Reported) Nicotine (Nicotine Patch) 21 Mg Patch.td24, 1 PATCH TD DAILY for nicotine withdrawal, #7 Quetiapine Fumarate (Quetiapine Fumarate) 400 Mg Tablet, 400 MG PO QHS, (Reported) Tamsulosin HCl (Flomax) 0.4 Mg Capsule, 0.4 MG PO DAILY, (Reported) Scheduled PRN Calcium Carbonate (Tums) 500 Mg Chw, 1,000 MG PO Q4HP PRN for HEART BURN, (Reported) Trazodone HCl (Trazodone HCl) 50 Mg Tablet, 100 MG PO QHSP PRN for INSOMNIA, #7 Allergies Coded Allergies: megestrol (Verified Allergy, Intermediate, swelling, 11/29/19) haloperidol (Verified Adverse Reaction, Intermediate, HALLUCINATIONS, AGITATION, 04/25/19) JACQUELINE FUNES NP Jan 21, 2020 15:15
--- NOTE | 2020-01-22 11:53 | MHHPE ---
DATE OF ADMISSION: 01/19/2020 DATE OF EVALUATION: 01/20/2020 HISTORY OF PRESENT ILLNESS: This is a 59-year-old man with a longstanding history of psychiatric treatment and multiple prior hospitalizations. He presented to the emergency room this time. He reported suicidal ideations without any particular plan, but he did state that if he did have a plan he would not tell us anyway. He talked about feeling overwhelmed lately. Apparently, he fractured his wrist 2 weeks ago and not only has he been dealing with the pain, but he says that he had difficulty taking his Seroquel due to the fractured wrist and he says that twice he spilled his Seroquel and lost the pills and now his insurance apparently is not able to give him a new prescription until 02/02/2020. He says without his Seroquel he is not able to sleep at all and therefore he has been feeling depressed and having suicidal thoughts as noted above. This patient was last hospitalized at [facility] on 10/28/2019 and he was admitted with depression and he had a change in his medications and he was discharged with a diagnosis of major depressive disorder. The patient also did outpatient treatment for many years with Dr. Lewis at [facility], but he had recently changed to [facility] because he had moved there. Currently, he takes Depakote 1000 mg nightly, Wellbutrin XL 150 mg daily, BuSpar 15 mg twice a day, Seroquel 400 mg nightly. Of note, is this patient does have a history of significant borderline personality disorder also. PAST PSYCHIATRIC HISTORY: This is as noted above. He has a history of multiple prior psychiatric admissions and longstanding treatment. FAMILY HISTORY: This is negative for any psychiatric history of suicides in the family. MEDICAL HISTORY: The patient says that he has trouble with arthritis in addition to the recent fracture in his left wrist. SUBSTANCE ABUSE: He has a history of abusing alcohol, but he says he has been sober now for a while. Toxicology was negative for any drugs. REVIEW OF SYSTEMS: Vital signs: Blood pressure 111/56, pulse 77, respirations 16. Neuromuscular system: The patients gait is normal. There was no involuntary movement noted. Appearance: He did not appear to be in any apparent distress. All other systems were reviewed and found to be negative, of course except for his acute pain due to his wrist fracture. MENTAL STATUS EXAMINATION: This patient is alert and oriented times three. Eye contact fair. Psychomotor activity is decreased. There is no formal thought disorder noted. He says his mood is depressed. Affect is full range and appropriate. He is not psychotic. He admits to having some suicidal thoughts but with no particular plan. He denies homicidal thoughts. Concentration is fair. Memory intact. Insight and judgment is poor. DIAGNOSES: 1. Major depressive disorder, recurrent, severe without psychotic symptoms. 2. History of posttraumatic stress disorder (PTSD). TREATMENT PLAN: At this point, the patient is depressed and having some suicidal thoughts without a plan. We will continue to monitor him for these symptoms. We will continue his current medications as indicated above and hopefully he will stabilize and be discharged home with appropriate followup. GHULAM
== END 2020-01-21 13:55 | disposition home or self-care (01) | DRG 885 ==
LOC: M ED 13:43 → M ED INP 16:14 → M PSY 17:21
PROVIDERS: ADMIT Psychiatry & Neurology Psychiatry; ATTEND Psychiatry & Neurology Psychiatry
DX: F31.9 Bipolar disorder, unspecified (principal); J44.9 Chronic obstructive pulmonary disease, unspecified; M54.5 Low back pain; Z79.899 Other long term (current) drug therapy; Z88.8 Allergy status to other drugs, medicaments and biological substances; E03.9 Hypothyroidism, unspecified; I50.9 Heart failure, unspecified; K21.9 Gastro-esophageal reflux disease without esophagitis; N40.0 Benign prostatic hyperplasia without lower urinary tract symptoms; K59.00 Constipation, unspecified; F41.9 Anxiety disorder, unspecified

== ENCOUNTER → 2020-06-30 | Outpatient (REF) | payer MEDICARE, MEDICAID ==
[~2020-06-30] MED LIST changes: -BUPR150T3 PO; +BUPR150T4 PO; +CELE1CAP9 PO; +GABA-282 PO; -GABA-843 PO; +NICO21PAT TD; -QUET1TAB10 PO; -QUET1TAB7 PO; +QUET25TA3 PO; +QUET300T2 PO; +TIZA1TAB12 PO; -TIZA2TAB6 PO; +TRAZ-252 PO; +TREL1AER INH
== END ==
LOC: M SFHCPLAZ 09:15
PROVIDERS: ATTEND Physician Assistant Medical
DX: F32.0 Major depressive disorder, single episode, mild (principal); E03.9 Hypothyroidism, unspecified; Z13.220 Encounter for screening for lipoid disorders; K21.9 Gastro-esophageal reflux disease without esophagitis

== ENCOUNTER 2020-08-22 09:16 | Inpatient (IN) | payer MEDICARE, MEDICAID ==
[~2020-08-22] VITALS: Ht 172.7 cm; Wt 50.1 kg
[~2020-08-22 09:16] MED LIST changes: +BUPR150T12 PO; -BUPR150T4 PO
[2020-08-22] MEDS ORDERED: COMBIVENT RESPIMAT 100-20MCG INHALER 4GM INH ONE (09:45)
[2020-08-22 10:26] LABS: BASO # 0.1 10^3/uL (0.0-0.2); BASO % 1.6 % (0.0-1.0); EOS # 0.1 10^3/uL (0.0-0.5); EOS % 1.2 % (0.0-3.0); HEMATOCRIT 41.1 % (42.0-52.0); HEMOGLOBIN 13.4 g/dl (13.5-17.5); LYMPH # 1.5 10^3/uL (1.5-5.0); LYMPH % 30.1 % (24.0-44.0); MEAN CORPUSCULAR HEMOGLOBIN 31.6 pg (27.0-33.0); MEAN CORPUSCULAR HGB CONC 32.6 g/dl (32.0-36.5); MEAN CORPUSCULAR VOLUME 96.9 fl (80.0-96.0); MONO # 0.6 10^3/uL (0.0-0.8); MONO % 12.5 % (2.0-8.0); NEUTROPHILS # 2.7 10^3/uL (1.5-8.5); NEUTROPHILS % 54.4 % (36.0-66.0); PLATELET COUNT, AUTOMATED 332 10^3/uL (150-450); RED BLOOD COUNT 4.24 10^6/uL (4.30-6.10)
[2020-08-22 10:38] LABS: AMPHETAMINES LEVEL URINE NEGATIVE (NEGATIVE); BARBITURATES URINE NEGATIVE (NEGATIVE); BENZODIAZEPINES URINE NEGATIVE (NEGATIVE); CANNABINOIDS URINE NEGATIVE (NEGATIVE); COCAINE METABOLITE URINE NEGATIVE (NEGATIVE); METHADONE URINE NEGATIVE (NEGATIVE); OPIATES URINE NEGATIVE (NEGATIVE); PHENCYCLIDINE URINE NEGATIVE (NEGATIVE)
[2020-08-22] MEDS ORDERED: ACETAMINOPHEN TAB 650MG DOSE (2X325MG) PO ONE (10:55)
[2020-08-22 11:02] LABS: ACETAMINOPHEN LEVEL < 2.0 UG/ML (10.0-30.0); ALBUMIN 4.1 GM/DL (3.2-5.2); ALT/SGPT 32 U/L (12-78); BILIRUBIN,DIRECT 0.1 MG/DL (0.0-0.2); BILIRUBIN,TOTAL 0.3 MG/DL (0.2-1.0); BLOOD UREA NITROGEN 18 MG/DL (7-18); CALCIUM LEVEL 9.1 MG/DL (8.8-10.2); CARBON DIOXIDE LEVEL 27 MEQ/L (21-32); CHLORIDE LEVEL 106 MEQ/L (98-107); CREATININE FOR GFR 0.99 MG/DL (0.70-1.30); ETHYL ALCOHOL (ETHANOL) < 0.003 % (0.000-0.010); GLOMERULAR FILTRATION RATE > 60.0 (>49); GLUCOSE, FASTING 86 MG/DL (70-100); POTASSIUM SERUM 3.8 MEQ/L (3.5-5.1); SALICYLATE LEVEL 2.9 MG/DL (5.0-30.0); SODIUM LEVEL 139 MEQ/L (136-145); TOTAL PROTEIN 6.9 GM/DL (6.4-8.2)
[2020-08-22] MEDS ORDERED: MOM 30ML SUSPENSION UDC PO PRN (13:10)
[2020-08-22] MEDS ORDERED: traZODone 50 MG TAB PO PRN (13:10)
[2020-08-22] MEDS: MAALOX 30 ML SUSP *UDC PO PRN ×2 (13:52→19:19)
[2020-08-22 14:46] LABS: RSV AMPLIFICATION NEGATIVE (NEGATIVE)
[2020-08-22 15:04] VITALS: BP 119/56
[2020-08-22] MEDS ORDERED: CALCIUM CARBONATE 500 MG CHEW U/D PO PRN (16:25)
[2020-08-22] MEDS: ALBUTEROL 90 MCG/ACT 8GM HFA INHALER INH PRN (18:20)
[2020-08-22] MEDS: ACETAMINOPHEN TAB 650MG DOSE (2X325MG) PO PRN (19:19)
[2020-08-22] MEDS: QUEtiapine FUMARATE 200 MG TAB PO SCH (20:21)
[2020-08-22] MEDS: DIVALPROEX 500MG *ER* TAB PO SCH (20:22)
[2020-08-22] MEDS: busPIRone 5 MG TAB PO SCH (20:22)
[2020-08-22] MEDS: ADVAIR HFA 45/21MCG INHALER INH SCH (20:44)
[2020-08-23] MEDS: LEVOTHYROXINE 75MCG TABLET (0.075MG) PO SCH (06:04)
[2020-08-23 06:26] VITALS: BP 122/64
[2020-08-23] MEDS: TIOTROPIUM INHALER/CAPSULE (SPIRIVA) INH SCH (08:55)
[2020-08-23] MEDS: TAMSULOSIN 0.4 MG CAP PO SCH (08:57)
[2020-08-23] MEDS: ADVAIR HFA 45/21MCG INHALER INH SCH ×2 (08:57→20:35)
[2020-08-23] MEDS: busPIRone 5 MG TAB PO SCH ×2 (08:57→20:33)
[2020-08-23] MEDS: PANTOPRAZOLE 40MG TAB (PROTONIX) PO SCH (08:58)
[2020-08-23] MEDS: CelecoXIB (CeleBREX) 100 MG CAP PO SCH (08:58)
--- NOTE | 2020-08-23 09:04 | HPEPDOC ---
[facility] Medical History & Physical Date of Admission Aug 22, 2020 Date of Service: Aug 23, 2020 History and Physical CHIEF COMPLAINT: suicidal ideation HISTORY OF PRESENT ILLNESS: 60 year old male with PMHx as indicated presents for suicidal ideation. States he has having general social stressors in life including issues with his medical providers and his boss at his new job. He states he gets feelings of suicidal ideations, but his adventism ashlee jhoana him for doing harm. He does report previous attempts in the past including hanging, cutting and overdose. This morning he complains of general aches and pains, denies chest pain, shortness of breath, nausea, vomiting or diarrhea. PAST MEDICAL HISTORY: #CHF (as per documentation) #left ankle complex talus fx #anemia #EtOH abuse #BPH #bipolar #COPD #eating disorder #anxiety/depression ALLERGIES: Please see below. REVIEW OF SYSTEMS: Negative except as per HPI. HOME MEDICATIONS: Please see below. PHYSICAL EXAMINATION: VITAL SIGNS: See below General: NAD, sitting comfortably in chair, cachectic HEENT: NC/AT, EOMI Lungs: CTA B/L Heart: +S1S2, RRR Abd: soft, NT, +BS Ext: no edema LABORATORY DATA: See below. MICROBIOLOGY: Please see below. A/P: 60 year old male with PMHx as indicated presents for suicidal ideation exacerbated by general social stressors including issues with his medical providers and his boss at his new job. #SI/psych - as per primary team #CHF - as per documentation #anemia - stable #EtOH abuse - no s/s of withdrawal - will add folate/thiamine #BPH - flomax #bipolar #COPD - continue with respiratory treatments, spiriva #hypothyroidism - synthroid #GERD - protonix Thank you for this consultation. Please re-consult as needed. Vital Signs Vital Signs Date Time Temp Pulse Resp B/P (MAP) Pulse Ox O2 Delivery O2 Flow Rate FiO2 08/23/20 06:26 98.4 86 18 122/64 (83) 100 Room Air Laboratory Data Labs 24H Laboratory Tests 2 08/22/20 09:47: Urine Opiates Screen NEGATIVE, Urine Methadone Screen NEGATIVE, Urine Gretta turates Screen NEGATIVE, Urine Phencyclidine Screen NEGATIVE, Urine Amphetamines Screen NEGATIVE, Urine Benzodiazepines Screen NEGATIVE, Urine Cocaine Metabolite Screen NEGATIVE, Urine Cannabinoids Screen NEGATIVE 08/22/20 10:14: Anion Gap 6L, Glomerular Filtration Rate > 60.0, Calcium Level 9.1, Total Bilirubin 0.3, Direct Bilirubin 0.1, Aspartate Amino Transf (AST/SGOT) 25, A lanine Aminotransferase (ALT/SGPT) 32, Alkaline Phosphatase 90, Total Protein 6.9, Albumin 4.1, Albumin/Globulin Ratio 1.5, Thyroid Stimulating Hormone (TSH) 5.730H, Salicylates Level 2.9L, Acetaminophen Level < 2.0L, Valproic Acid (Depakene) Level < 3.0L, Ethyl Alcohol Level < 0.003 08/22/20 10:15: Immature Granulocyte % (Auto) 0.2, Neutrophils (%) (Auto) 54.4, Lymphocytes (%) (Auto) 30.1, Monocytes (%) (Auto) 12.5H, Eosinophils (%) (Auto) 1.2, Basophils (%) (Auto) 1.6H, Neutrophils # (Auto) 2.7, Lymphocytes # (Auto) 1.5, Monocytes # (Auto) 0.6, Eosinophils # (Auto) 0.1, Basophils # (Auto) 0.1, Nucleated Red Blood Cells % (auto) 0.0 08/22/20 13:54: Coronavirus (COVID-19)(PCR) NEGATIVE, Influenza Type A (RT-PCR) NEGATIVE, Influenza Type B (RT-PCR) NEGATIVE, Respiratory Syncytial Virus (PCR) NEGATIVE CBC/BMP Laboratory Tests 08/22/20 10:14 08/22/20 10:15 Home Medications Scheduled Buspirone HCl (Buspirone HCl) 15 Mg Tablet, 30 MG PO BID Celecoxib (Celecoxib) 200 Mg Capsule, 200 MG PO DAILY Divalproex Sodium (Divalproex Sodium ER) 500 Mg Tab, 1,000 MG PO QHS for MOOD Esomeprazole Magnesium (Nexium) 40 Mg Cap, 40 MG PO DAILY for GERD Fluticasone/Umeclidin/Vilanter (Trelegy Ellipta 100-62.5-25) 1 Each Blst.w.dev, 1 PUFF INH DAILY Levothyroxine Sodium (Levothyroxine Sodium) 75 Mcg Tablet, 75 MCG PO QAM Quetiapine Fumarate (Quetiapine Fumarate) 400 Mg Tablet, 400 MG PO QHS Tamsulosin HCl (Flomax) 0.4 Mg Capsule, 0.4 MG PO DAILY Scheduled PRN Calcium Carbonate (Tums) 500 Mg Chw, 1,000 MG PO Q4HP PRN for HEART BURN Allergies Coded Allergies: megestrol (Verified Allergy, Intermediate, swelling, 11/29/19) haloperidol (Verified Adverse Reaction, Intermediate, HALLUCINATIONS, AGITATION, 04/25/19) A-FIB/CHADSVASC A-FIB History Current/History of A-Fib/PAF?: No OSBALDO CAVAZOS MD Aug 23, 2020 09:04
[2020-08-23] MEDS: FOLIC ACID 1 MG TAB PO SCH (09:15)
[2020-08-23] MEDS: THIAMINE 100 MG TAB PO SCH (09:15)
[2020-08-23] MEDS: NICOTINE 21MG/24HR 1 EA TRANSDERMAL TD SCH (09:50)
[2020-08-23] MEDS: ACETAMINOPHEN TAB 650MG DOSE (2X325MG) PO PRN ×2 (09:55→16:03)
[2020-08-23] MEDS: ALBUTEROL 90 MCG/ACT 8GM HFA INHALER INH PRN (15:30)
[2020-08-23 16:07] VITALS: BP_SYST 127; BP_SYST 141; BP_DIAS 76
[2020-08-23] MEDS: OLANZapine ORAL DISINTEGRATING TAB 5MG PO PRN (17:20)
[2020-08-23] MEDS: MAALOX 30 ML SUSP *UDC PO PRN (18:44)
[2020-08-23] MEDS: QUEtiapine FUMARATE 200 MG TAB PO SCH (20:33)
[2020-08-23] MEDS: DIVALPROEX 500MG *ER* TAB PO SCH (20:33)
[2020-08-24 06:22] VITALS: BP 121/67
[2020-08-24] MEDS: LEVOTHYROXINE 75MCG TABLET (0.075MG) PO SCH (06:40)
[2020-08-24] MEDS: TIOTROPIUM INHALER/CAPSULE (SPIRIVA) INH SCH ×2 (08:00→09:51)
[2020-08-24] MEDS: NICOTINE 21MG/24HR 1 EA TRANSDERMAL TD SCH (08:22)
[2020-08-24] MEDS: ADVAIR HFA 45/21MCG INHALER INH SCH ×2 (08:26→20:02)
[2020-08-24] MEDS: busPIRone 5 MG TAB PO SCH ×2 (08:27→20:01)
[2020-08-24] MEDS: THIAMINE 100 MG TAB PO SCH (08:28)
[2020-08-24] MEDS: FOLIC ACID 1 MG TAB PO SCH (08:28)
[2020-08-24] MEDS: PANTOPRAZOLE 40MG TAB (PROTONIX) PO SCH (08:28)
[2020-08-24] MEDS: TAMSULOSIN 0.4 MG CAP PO SCH (08:28)
[2020-08-24] MEDS: CelecoXIB (CeleBREX) 100 MG CAP PO SCH (08:28)
[2020-08-24] MEDS: NICOTINE 14 MG/24 HR TRANSDERMAL TD SCH (09:27)
[2020-08-24] MEDS: ACETAMINOPHEN TAB 650MG DOSE (2X325MG) PO PRN ×2 (09:38→17:31)
[2020-08-24] MEDS: OLANZapine ORAL DISINTEGRATING TAB 5MG PO PRN ×2 (09:48→16:51)
[2020-08-24] MEDS ORDERED: POLYVINYL ALCOHOL OPHTH SOLN 15 ML(LIQUITEARS) OU PRN (11:10)
[2020-08-24] MEDS: ALBUTEROL 90 MCG/ACT 8GM HFA INHALER INH PRN (16:21)
[2020-08-24] MEDS: MAALOX 30 ML SUSP *UDC PO PRN (18:24)
[2020-08-24] MEDS: DIVALPROEX 500MG *ER* TAB PO SCH (20:02)
[2020-08-24] MEDS: QUEtiapine FUMARATE 200 MG TAB PO SCH (20:02)
[2020-08-25] MEDS: LEVOTHYROXINE 75MCG TABLET (0.075MG) PO SCH (05:44)
[2020-08-25 06:00] VITALS: BP 118/74
--- NOTE | 2020-08-25 09:26 | MHHPE ---
CRITICAL ACCESS HOSPITAL HISTORY AND PHYSICAL DATE OF ADMISSION: 08/22/2020 VITAL SIGNS: Blood pressure 127/76, pulse 100, temperature 97.7. This is a video assessment, we are doing this because of the pandemic, and I would normally be seeing the patient [id number] as well, but I am unable to do so, as I am not well enough to come to the hospital. CHIEF COMPLAINT: Feels depressed. SUBJECTIVE: He is 60 years old, he is single, he has a history of several inpatient hospitalizations, carries a diagnosis of bipolar disorder primarily, is seen at [facility], for the last couple of years or so, sees Uli Bowie. He used to be seen at the [facility], I used to see him there, though he transferred care to [place], as it was more convenient. Please refer to previous summaries regarding details of background history, and details of previous hospitalizations as well. When I last saw him, late 2018, he was on Seroquel at 400 mg at bedtime, buspirone 30 mg twice a day, and Depakote ER 1000 mg at bedtime. He has essentially maintained these medications, at [place], he suggests no changes were made. Has been feeling depressed, the last few weeks, particularly the last couple of weeks, and had gone to [facility] for an intake visit, as he wished to shift his care from [place] back to [facility], and he when he was seen there, at the clinic, they were concerned about his mood, he had been feeling depressed, suicidal, and they asked him to come to the hospital, which he did. 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 He also noted he was not taking his medications regularly, began missing doses, says that continued, for the substantial part of the last 3 weeks, more so the Seroquel than the Depakote. Says had been drinking as well, but that he had cut it down to three or four beers most nights. Began feeling hopeless, had suicidal thoughts, says they were more difficult to push aside, did not have firm plans, but had thought of some, for example driving off a [place]. Has had difficulties maintaining his weight, said has continued losing weight, despite eating well. Sees Ms. Clemens for primary care. He says he also contracted COVID early June, was treated symptomatically, and fortunately did not require hospitalization. PAST PSYCHIATRIC HISTORY: Has a history of several inpatient hospitalizations, please refer to previous summaries for details. Has a history of suicide attempts. Has been diagnosed with bipolar disorder in essence, and personality disorder as well, with antisocial traits. MEDICAL HISTORY: Has a history of congestive heart failure in the past, left ankle fracture, anemia, chronic obstructive pulmonary disease (COPD). MEDICATIONS: Please see the list. These include: - buspirone 30 mg twice a day - celecoxib 20 mg daily - Depakote 1000 mg at night - Nexium 40 mg daily - levothyroxine 75 mcg daily - Seroquel 400 mg at night - Flomax 0.4 mg daily SOCIAL HISTORY: Please refer to previous summaries. Has little in terms of social support, used to go to nondenominational regularly, says keeps in touch, but is not as regular, that has tended to help him, including acting as a deterrent against taking his own life. Is not in close contact with any of his siblings except one, in [place], and he gets along with her quite well. MENTAL STATUS EXAMINATION: He is neat, cooperative though a bit guarded, but more relaxed as the interview proceeded. There is no overt agitation, no psychomotor retardation. He is coherent. Affect is restricted in range. He denies any active suicidal plans, vague on thoughts. He denies any thoughts of harming anyone else. There is no evidence of any psychosis. Cognition is grossly intact. Intellect average. Judgment and insight are compromised. ASSESSMENT: Other specified bipolar and related disorder. Generalized anxiety disorder. No social supports. Recent work and its conditions. Has been depressed, somewhat increasingly so, and this may have been exacerbated further by his not taking the Depakote or the Seroquel regularly recently. It is possible alcohol may have a role to play in it as well, as he tends to minimize his use. PLAN: He is admitted to the inpatient psychiatry unit and placed on relevant precautions. I would suggest continuing with his current medication regimen, in other words resuming it, so that he takes it regularly, Seroquel at 400 mg at night, Depakote at 1000 mg at night, buspirone 30 mg twice a day, I do not think that a substantial change in his regimen is required, he has done well on it in the relatively recent past as well. He is to be encouraged to participate in activities in the unit. He will receive a medicine consult if indicated. He will be discharged with followup once he is stable. He wishes to followup at [facility], he had gone there for an intake visit, before he came to the hospital. He is aware that his previous therapist, Ce, is no longer there. He was given Zydis Zyprexa as he was irritable and verbally agitated in the afternoon, felt better after it. Further recommendations will be made depending on the clinical picture. I would suggest, and the patient is aware of this, that he ought to remain away from work for a few days, up to a week, upon discharge. The assessment took 45 minutes.
[2020-08-25] MEDS: TAMSULOSIN 0.4 MG CAP PO SCH (09:35)
[2020-08-25] MEDS: CelecoXIB (CeleBREX) 100 MG CAP PO SCH (09:36)
[2020-08-25] MEDS: THIAMINE 100 MG TAB PO SCH (09:36)
[2020-08-25] MEDS: NICOTINE 14 MG/24 HR TRANSDERMAL TD SCH (09:36)
[2020-08-25] MEDS: busPIRone 5 MG TAB PO SCH (09:37)
[2020-08-25] MEDS: FOLIC ACID 1 MG TAB PO SCH (09:37)
[2020-08-25] MEDS: PANTOPRAZOLE 40MG TAB (PROTONIX) PO SCH (09:37)
[2020-08-25] MEDS: ADVAIR HFA 45/21MCG INHALER INH SCH (09:37)
[2020-08-25] MEDS: TIOTROPIUM INHALER/CAPSULE (SPIRIVA) INH SCH (09:38)
[2020-08-25] MEDS: MAALOX 30 ML SUSP *UDC PO PRN (10:34)
[2020-08-25] MEDS ORDERED: DIVA500T9 PO (11:18)
[2020-08-25] MEDS ORDERED: NICO14PA TD (11:18)
[2020-08-25] MEDS ORDERED: THIA100TA PO (11:18)
[2020-08-25] MEDS ORDERED: POLYOPD OU (11:18)
[2020-08-25] MEDS ORDERED: BUSP15TA47 PO (11:18)
[2020-08-25] MEDS ORDERED: VENTAER INH (11:18)
[2020-08-25] MEDS ORDERED: FOLI1TAB11 PO (11:18)
[2020-08-25] MEDS ORDERED: QUET400T PO (11:18)
[2020-08-25] MEDS ORDERED: TIOT18INH INH (11:18)
[2020-08-25] MEDS ORDERED: ADVA45AE INH (11:18)
--- NOTE | 2020-08-25 15:45 | MHDSPDOC ---
[facility] Discharge Summary Discharge Summary DATE OF ADMISSION: Aug 22, 2020 at 13:09 DATE OF DISCHARGE: Aug 25, 2020 at 12:25 DISCHARGE DIAGNOSES: Other specified, bipolar and related disorder Generalized anxiety disorder No social supports Recent work and it's or conditions REASON FOR ADMISSION: Patient is a 60-year-old single employed domiciled male with a history of multiple inpatient hospitalizations, diagnosis of bipolar disorder, primarily he is seen at [facility] and sees Uli Bowie. Patient self presented after he went to a walk-in appointment at [facility] in they referred him for higher level of care. He has complained of back and abdominal pain, stating that he has difficulty sleeping. Reports being very frustrated and overwhelmed with new work position that he had obtained stated, stated that he is feeling hopeless and hopeless. Reports previous attempts of hanging, cutting and overdose. Reports diagnosis of depression and bipolar. States that he has frequent thoughts of suicidality CONSULTANTS INVOLVED: See Medical H + P by Hospitalist TREATMENT AND PROGRESS ON THE UNIT: Patient was admitted to the [facility] on a 9.39 legal status he was afforded the following treatment modalities: 1) Individual Therapy 2) Group Therapy 3) Medication Management 4) Milieu Therapy 5) Safe Environment HOSPITAL COURSE: Patient is a 60-year-old single employed domiciled male who has numerous admissions to this facility. He initially was reporting suicidality and depressive symptoms and somatic complaints of his abdomen, stomach, feet and other general malaise. In today's interview, patient reporting that his depression and anxiety has decreased. 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 Patient is considerably thinner than on his last admission, he becomes quite irritable when his weight loss is discussed. States that he eats and he does not have any worries about that. His recent weight loss. Patient has an elevated TSH. I requested the patient to stay another few hours to have his TSH and draw retaken. He stated he did not want to do this that he would follow-up with his primary care provider encouraged the patient again to stay another day to have continued treatment. The patient refused stated he has worked tomorrow when I offered to discharge him tomorrow. He stated he needed to be discharged today in order to make it to work tomorrow at 6 AM. He denied any risk of self-harm and reported that his depression has decreased. Patient was very adamant that he wa nted to return to work tomorrow. It appears that he is future oriented in that there is little risk that he will self-harm, given that he is motivated to make it to work and not miss a day as he reports that he is under a probationary period. DISCHARGE ASSESSMENT: In today's interview, patient is alert and oriented, pts dress is appropriate. Hygiene and grooming is well-kempt. Smiles on approach and is pleasant and engaged in the interview. Denies severe depression and anxiety - reports that it has decreased. Denies suicidal and homicidal ideation, planning or intent. Denies and is not observed with mallika, psychotic symptoms of delusions, bizarre thinking, obsessions, paranoia, ruminations illogical thoughts, flight of ideas or having poor insight and judgement. Patient has normal mentation, declines further hospitalization on a voluntary status and meets criteria for discharge today. Patient encouraged to return to hospital if his symptoms worsen or change and encouraged to call unit if he/she/they needs to speak to provider for questions regarding medications or care. MENTAL STATUS EXAMINATION ON DISCHARGE: Patient is a 60-year-old single employed domiciled male with a history of multiple inpatient hospitalizations, diagnosis of bipolar disorder, complained of back and abdominal pain, difficulty sleeping feeling, frustrated and overwhelmed with work , feeling hopeless and hopeless. States that he has frequent thoughts of suicidality Speech: Is fluid, conversant, normal rate, tone and volume Language skills are intact Thought processes including: linear and goal oriented Thought content: reports depression and anxiety but that it is improved from initial ED assessment. Denies suicidal/homicidal ideation, planning or intent. Abstract reasoning, and computation: fair Description of associations: denies, none observed Description of abnormal or psychotic thoughts: denies, none observed. Judgment: fair Insight: fair Orientation: alert and oriented to person, place, time and situation Recent and remote memory: intact Attention span and concentration: good Language: expansive Fund of knowledge: average Mood: Reported decreased depression Affect: constricted MEDICATIONS ON DISCHARGE: See Medication Reconciliation PLAN/FOLLOWUP ARRANGEMENTS: Discharge today The amount of time spent in the coordination of care for this patient was a pproximately 40 minutes. ETOH/Disorder Med Rx ETOH/DRUG DISORDER RX: Given to pt at d/c (Nicotine patch, patient refused ETOH help) Vital Signs/I&Os Vital Signs Date Time Temp Pulse Resp B/P (MAP) Pulse Ox O2 Delivery O2 Flow Rate FiO2 08/25/20 06:00 98.5 80 20 118/74 (89) 99 08/24/20 06:22 Room Air Medications Scheduled Buspirone HCl (Buspirone HCl) 15 Mg Tablet, 30 MG PO BID for Anxiety, #14 Celecoxib (Celecoxib) 200 Mg Capsule, 200 MG PO DAILY, (Reported) Divalproex Sodium (Divalproex Sodium ER) 500 Mg Tab, 1,000 MG PO QHS for MOOD, #14 Esomeprazole Magnesium (Nexium) 40 Mg Cap, 40 MG PO DAILY for GERD, (Reported) Fluticasone Propion/Salmeterol (Advair Hfa 45-21 Mcg Inhaler) 12 Gm Hfa.aer.ad, 2 PUFF INH BID for Asthma, #1 Fluticasone/Umeclidin/Vilanter (Trelegy Ellipta 100-62.5-25) 1 Each Blst.w.dev, 1 PUFF INH DAILY, (Reported) Folic Acid (Folic Acid) 1 Mg Tablet, 1 MG PO DAILY for Vitamin Replacement, #7 Levothyroxine Sodium (Levothyroxine Sodium) 75 Mcg Tablet, 75 MCG PO QAM, (Reported) Nicotine (Nicotine Patch) 14 Mg Patch.td24, 1 PATCH TD DAILY for Nicotine Withdrawal, #7 Quetiapine Fumarate (Quetiapine Fumarate) 400 Mg Tablet, 400 MG PO QHS for Sleep, #7 Tamsulosin HCl (Flomax) 0.4 Mg Capsule, 0.4 MG PO DAILY, (Reported) Thiamine Hcl (Vitamin B-1) 100 Mg Tablet, 100 MG PO DAILY for Vitamin Replacement, #7 Tiotropium [place] Monohydrate (Spiriva) 18 Mcg Cap.w.dev, 1 INHALATION INH DAILY@08 for Asthma, #1 Scheduled PRN Albuterol Sulfate (Ventolin Hfa) 18 Gm Hfa.aer.ad, 2 PUFF INH QIDP PRN for SHORTNESS OF BREATH, #1 Calcium Carbonate (Tums) 500 Mg Chw, 1,000 MG PO Q4HP PRN for HEART BURN, (Reported) Polyvinyl Alcohol (Artificial Tears) 15 Ml Drops, 2 DROP OU TIDP PRN for DRY EYES, #1 Allergies Coded Allergies: megestrol (Verified Allergy, Intermediate, swelling, 11/29/19) haloperidol (Verified Adverse Reaction, Intermediate, HALLUCINATIONS, AGITATION, 04/25/19) JACQUELINE FUNES NP Aug 25, 2020 15:31
--- NOTE | 2020-08-26 09:03 | MHIPN ---
[facility] PROGRESS NOTE DATE: 08/24/2020 VITAL SIGNS: Blood pressure 121/67, pulse 89, temperature 98. This is a video assessment, he is seen in the presence of staff. CHIEF COMPLAINT: Feels upset. SUBJECTIVE: Seen for followup. Says is upset, feels he is not being helped. Gives various examples, of what he has asked from staff, and feels that has not been provided to him, or if it is, it is not done so in time. Says he slept reasonably well. Appetite has been okay. MENTAL STATUS EXAMINATION: Neat, cooperative, no agitation, no psychomotor retardation. He is irritable, various factors, which he points out, gets further irritated when some of those are addressed, is sarcastic. Has been verbally aggressive with staff as well. Denies any suicidal thoughts or intents, no homicidal ideas or intents, no evidence of any psychosis. Cognition is grossly intact. Judgment and insight are quite questionable. ASSESSMENT: Other specified bipolar and related disorders. Generalized anxiety disorder. Personality disorder not otherwise specified. Has been irritable, verbally aggressive towards staff, and further irritated when he feels his demands are not met. Has used the Zyprexa, it makes him a bit tired, but suggests tends to help. PLAN: He is to continue with Depakote 1000 mg at night, he had been off it, as stated in my previous note, and resuming it is helpful, rather than looking at an increase in the dose automatically. Continue Seroquel at 400 mg at night. He suggests that he has used it in the past, including recently, periodically, to help with sleep, the recommendation is that it is used regularly, and the rationale for doing so is discussed. Continue buspirone 30 mg twice a day. He is offered hydroxyzine at 10-25 mg up to twice a day as needed for anxiety, instead of the Zydis, a discussion is attempted regarding it, and the drawbacks and advantages of using the hydroxyzine. He declines, feels it makes him drowsy, decided to stick with the Zyprexa for now. He is aware that the Zyprexa is recommended to be used only when he is in hospital. I would suggest continuing current precautions, and he is to be encouraged to participate in activities as tolerated. He is to see the assigned clinicians tomorrow, he is aware he will likely see Candy Parekh, Nurse Practitioner. Further recommendations will be made depending on the clinical picture. He is also informed should he have any concerns about the way staff has treated him, he has the option of addressing that with administration. He says he is aware of it. We met for 20 minutes. ADDENDUM: I wish to add, upon discharge I would recommend that the patient stay away from work for up to a week, to help his recovery. Addendum dictated: PILY 08/24/2020 1732 Addendum transcribed: ronda 08/25/2020 2019 GHULAM
== END 2020-08-25 12:25 | disposition home or self-care (01) | DRG 885 ==
LOC: M ED 09:16 → M ED INP 13:09 → M PSY 15:03
PROVIDERS: ADMIT Psychiatry & Neurology Psychiatry; ATTEND Psychiatry & Neurology Psychiatry
DX: F31.9 Bipolar disorder, unspecified (principal); R45.851 Suicidal ideations; F41.1 Generalized anxiety disorder; Z79.899 Other long term (current) drug therapy; Z88.8 Allergy status to other drugs, medicaments and biological substances; I50.9 Heart failure, unspecified; D64.9 Anemia, unspecified; F10.10 Alcohol abuse, uncomplicated; J44.9 Chronic obstructive pulmonary disease, unspecified; N40.0 Benign prostatic hyperplasia without lower urinary tract symptoms; F50.9 Eating disorder, unspecified; E03.9 Hypothyroidism, unspecified; K21.9 Gastro-esophageal reflux disease without esophagitis

== ENCOUNTER → 2020-08-28 | Outpatient (REF) | payer MEDICARE ==
[~2020-08-28] MED LIST changes: +ADVA45AE INH; +FOLI1TAB11 PO; +NICO14PA TD; +POLYOPD OU; +THIA100TA PO; +TIOT18INH INH; +VENTAER INH
[2020-08-28 14:14] LABS: AMORPHOUS SEDIMENT SMALL (NEGATIVE); APPEARANCE, URINE CLOUDY (CLEAR); BACTERIA, URINE AUTO NEGATIVE (NEGATIVE); BILIRUBIN, URINE AUTO NEGATIVE (NEGATIVE); BLOOD, URINE BLOOD NEGATIVE (NEGATIVE); COLOR, URINE YELLOW (YELLOW); GLUCOSE, URINE (UA) AUTO NEGATIVE (NEGATIVE); KETONE, URINE AUTO TRACE mg/dL (NEGATIVE); LEUKOCYTE ESTERASE, URINE AUTO NEGATIVE (NEGATIVE); MUCUS, URINE SMALL (NEGATIVE); NITRITE, URINE AUTO NEGATIVE (NEGATIVE); PROTEIN, URINE AUTO NEGATIVE (NEGATIVE); RBC, URINE AUTO 0 /HPF (0-3); SPECIFIC GRAVITY URINE AUTO 1.017 (1.002-1.035); SQUAMOUS EPITHELIAL CELL UR AU 0 /HPF (0-6); UROBILINOGEN, URINE AUTO 0.2 mg/dL (0.0-2.0); WBC, URINE AUTO 2 /HPF (0-3)
== END ==
LOC: M SFHCPLAZ 13:06
PROVIDERS: ATTEND Physician Assistant Medical
DX: F31.9 Bipolar disorder, unspecified (principal); Z79.899 Other long term (current) drug therapy
CPT/HCPCS: 81001; 87086; 99496; G0463

== ENCOUNTER → 2020-10-03 | Outpatient (REF) | payer MEDICARE, MEDICAID ==
[2020-10-03 11:20] LABS: BASO # 0.1 10^3/uL (0.0-0.2); BASO % 1.1 % (0.0-1.0); EOS # 0.1 10^3/uL (0.0-0.5); HEMATOCRIT 40.4 % (42.0-52.0); HEMOGLOBIN 13.1 g/dl (13.5-17.5); LYMPH # 1.7 10^3/uL (1.5-5.0); MEAN CORPUSCULAR HEMOGLOBIN 31.6 pg (27.0-33.0); MEAN CORPUSCULAR HGB CONC 32.4 g/dl (32.0-36.5); MEAN CORPUSCULAR VOLUME 97.3 fl (80.0-96.0); MONO # 0.7 10^3/uL (0.0-0.8); MONO % 10.3 % (2.0-8.0); NEUTROPHILS # 3.9 10^3/uL (1.5-8.5); NEUTROPHILS % 60.4 % (36.0-66.0); PLATELET COUNT, AUTOMATED 339 10^3/uL (150-450); RED BLOOD COUNT 4.15 10^6/uL (4.30-6.10); WHITE BLOOD COUNT 6.4 10^3/uL (4.0-10.0)
[2020-10-03 11:40] LABS: ERYTHROCYTE SEDIMENTATION RATE 6 mm/hr (0-20)
[2020-10-03 12:01] LABS: ALBUMIN 3.6 GM/DL (3.2-5.2); ALT/SGPT 33 U/L (12-78); BILIRUBIN,TOTAL 0.3 MG/DL (0.2-1.0); BLOOD UREA NITROGEN 18 MG/DL (7-18); C REACTIVE PROTEIN QUANTITATIV 0.45 MG/DL (0.00-0.30); CARBON DIOXIDE LEVEL 28 MEQ/L (21-32); CHLORIDE LEVEL 108 MEQ/L (98-107); CREATININE FOR GFR 1.11 MG/DL (0.70-1.30); FREE T4 0.82 NG/DL (0.76-1.46); GLOMERULAR FILTRATION RATE > 60.0 (>49); GLUCOSE, FASTING 79 MG/DL (70-100); POTASSIUM SERUM 4.3 MEQ/L (3.5-5.1); SODIUM LEVEL 141 MEQ/L (136-145); TOTAL PROTEIN 6.3 GM/DL (6.4-8.2)
== END ==
LOC: M SFHCPLAZ 08:09
PROVIDERS: ATTEND Physician Assistant Medical
DX: B94.8 Sequelae of other specified infectious and parasitic diseases (principal); E03.9 Hypothyroidism, unspecified

== ENCOUNTER → 2020-10-03 | Outpatient (CLI) | payer MEDICARE, MEDICAID ==
--- NOTE | 2020-10-03 08:35 | REPPI ---
INDICATION: COVID-19 LONG HAULER COMPARISON: 07/12/2013 TECHNIQUE: PA and lateral. FINDINGS: There appears to be some element of right-sided volume loss and associated pleuroparenchymal changes in the right lower lung zone. A superimposed right lower lobe opacity cannot be excluded. The left hemithorax is well aerated and clear. Cardiac silhouette is normal. The skeletal structures are intact. IMPRESSION: Volume loss and pleuroparenchymal changes involving the right hemithorax including right lower lobe opacity represent relatively new findings. Consider chest CT with contrast for further investigation. <Electronically signed by Hill Avila > 10/03/20 0883
== END ==
LOC: M PLAIMG 08:11
PROVIDERS: ATTEND Physician Assistant Medical
DX: B94.8 Sequelae of other specified infectious and parasitic diseases (principal); E03.9 Hypothyroidism, unspecified; Z79.899 Other long term (current) drug therapy

== ENCOUNTER 2020-10-27 14:07 | Inpatient (IN) | payer MEDICARE, MEDICAID ==
[~2020-10-27] VITALS: Ht 175.3 cm; Wt 52.7 kg
[2020-10-27 14:58] LABS: HEMATOCRIT 36.3 % (42.0-52.0); HEMOGLOBIN 12.2 g/dl (13.5-17.5); MEAN CORPUSCULAR HEMOGLOBIN 31.4 pg (27.0-33.0); MEAN CORPUSCULAR HGB CONC 33.6 g/dl (32.0-36.5); MEAN CORPUSCULAR VOLUME 93.3 fl (80.0-96.0); PLATELET COUNT, AUTOMATED 282 10^3/uL (150-450); RED BLOOD COUNT 3.89 10^6/uL (4.30-6.10); WHITE BLOOD COUNT 6.8 10^3/uL (4.0-10.0)
[2020-10-27 15:27] LABS: ACETAMINOPHEN LEVEL < 2.0 UG/ML (10.0-30.0); ALBUMIN 3.3 GM/DL (3.2-5.2); ALT/SGPT 47 U/L (12-78); BILIRUBIN,DIRECT < 0.1 MG/DL (0.0-0.2); BILIRUBIN,TOTAL 0.2 MG/DL (0.2-1.0); BLOOD UREA NITROGEN 28 MG/DL (7-18); CALCIUM LEVEL 9.8 MG/DL (8.8-10.2); CARBON DIOXIDE LEVEL 24 MEQ/L (21-32); CHLORIDE LEVEL 110 MEQ/L (98-107); CREATININE FOR GFR 1.26 MG/DL (0.70-1.30); ETHYL ALCOHOL (ETHANOL) 0.003 % (0.000-0.010); GLOMERULAR FILTRATION RATE > 60.0 (>49); GLUCOSE, FASTING 120 MG/DL (70-100); POTASSIUM SERUM 4.1 MEQ/L (3.5-5.1); SALICYLATE LEVEL < 1.7 MG/DL (5.0-30.0); SODIUM LEVEL 144 MEQ/L (136-145); TOTAL PROTEIN 6.1 GM/DL (6.4-8.2)
[2020-10-27 15:55] LABS: AMPHETAMINES LEVEL URINE NEGATIVE (NEGATIVE); BARBITURATES URINE NEGATIVE (NEGATIVE); BENZODIAZEPINES URINE NEGATIVE (NEGATIVE); CANNABINOIDS URINE NEGATIVE (NEGATIVE); COCAINE METABOLITE URINE NEGATIVE (NEGATIVE); METHADONE URINE NEGATIVE (NEGATIVE); OPIATES URINE NEGATIVE (NEGATIVE); PHENCYCLIDINE URINE NEGATIVE (NEGATIVE)
[2020-10-27 15:58] LABS: VALPROIC ACID (DEPAKOTE) 7.9 UG/ML (50.0-100.0)
[2020-10-27] MEDS ORDERED: ACETAMINOPHEN 325 MG TAB PO ONE (17:55)
[2020-10-27] MEDS ORDERED: LORazepam 2 MG TAB PO ONE (20:35)
[2020-10-27] MEDS ORDERED: SPIR1CAP PO (20:38)
[2020-10-27] MEDS ORDERED: BUSP15TA47 PO (20:38)
[2020-10-27] MEDS ORDERED: QUET400T PO (20:38)
[2020-10-27] MEDS ORDERED: DIVA500T9 PO (20:38)
[2020-10-27] MEDS ORDERED: ALBU8.5H INH (20:38)
[2020-10-27] MEDS ORDERED: ADVA45AE INH (20:38)
[2020-10-27] MEDS ORDERED: busPIRone 10 MG TAB PO ONE (21:00)
[2020-10-27] MEDS ORDERED: DIVALPROEX 500MG *ER* TAB PO ONE (21:00)
[2020-10-27] MEDS ORDERED: TAMSULOSIN 0.4 MG CAP PO ONE (21:00)
[2020-10-27] MEDS ORDERED: QUEtiapine FUMARATE 200 MG TAB PO ONE (21:00)
[2020-10-28] MEDS: FOLIC ACID 1 MG TAB PO SCH (09:00)
[2020-10-28] MEDS: MULTIVITAMINS/MINERALS THERAP 1 TAB PO SCH (09:00)
[2020-10-28] MEDS ORDERED: LEVOTHYROXINE 75MCG TABLET (0.075MG) PO SCH (09:00)
[2020-10-28] MEDS ORDERED: CelecoXIB (CeleBREX) 100 MG CAP PO SCH (09:00)
[2020-10-28] MEDS ORDERED: ACETAMINOPHEN TAB 650MG DOSE (2X325MG) PO ONE (09:40)
[2020-10-28] MEDS: busPIRone 10 MG TAB PO SCH ×3 (09:59→21:05)
[2020-10-28] MEDS: TAMSULOSIN 0.4 MG CAP PO SCH ×3 (10:00→21:05)
[2020-10-28] MEDS ORDERED: OMEPRAZOLE 20 MG CAP PO SCH (11:25)
[2020-10-28 15:39] LABS: RSV AMPLIFICATION NEGATIVE (NEGATIVE)
[2020-10-28] MEDS ORDERED: CALCIUM CARBONATE 500 MG CHEW U/D PO PRN (19:00)
[2020-10-28] MEDS ORDERED: LORazepam 2 MG TAB PO PRN (19:00)
[2020-10-28] MEDS ORDERED: ALBUTEROL 90 MCG/ACT 8GM HFA INHALER INH PRN (19:00)
[2020-10-28] MEDS ORDERED: MAALOX 30 ML SUSP *UDC PO PRN (19:00)
[2020-10-28] MEDS ORDERED: TIOTROPIUM INHALER/CAPSULE (SPIRIVA) INH PRN (19:00)
[2020-10-28] MEDS ORDERED: ADVAIR HFA 45/21MCG INHALER INH PRN (19:00)
[2020-10-28] MEDS ORDERED: MOM 30ML SUSPENSION UDC PO PRN (19:00)
[2020-10-28] MEDS ORDERED: traZODone 50 MG TAB PO PRN (19:00)
[2020-10-28 20:26] VITALS: BP_SYST 111; BP_DIAS 60; BP_DIAS 61
[2020-10-28] MEDS ORDERED: DIVALPROEX 250MG *ER* TAB PO SCH (21:00)
[2020-10-28] MEDS ORDERED: QUEtiapine FUMARATE 200 MG TAB PO SCH (21:00)
[2020-10-28] MEDS ORDERED: TAMSULOSIN 0.4 MG CAP PO SCH (21:00)
[2020-10-28] MEDS ORDERED: DIVALPROEX 500MG *ER* TAB PO SCH (21:00)
[2020-10-28] MEDS: ADVAIR HFA 45/21MCG INHALER INH SCH (21:03)
[2020-10-28] MEDS: PANTOPRAZOLE 40MG TAB (PROTONIX) PO SCH (21:04)
[2020-10-28] MEDS: DIVALPROEX 500MG *ER* TAB PO SCH (21:04)
[2020-10-28] MEDS: QUEtiapine FUMARATE 200 MG TAB PO SCH (21:05)
[2020-10-28] MEDS: THIAMINE 100 MG TAB PO SCH (21:05)
[2020-10-28] MEDS: ACETAMINOPHEN TAB 650MG DOSE (2X325MG) PO PRN (21:06)
[2020-10-29 06:00] VITALS: BP_SYST 111; BP_SYST 136; BP_DIAS 61; BP_DIAS 65
[2020-10-29] MEDS: LEVOTHYROXINE 75MCG TABLET (0.075MG) PO SCH (06:09)
[2020-10-29 06:54] VITALS: BP 136/65
[2020-10-29] MEDS: TIOTROPIUM INHALER/CAPSULE (SPIRIVA) INH SCH (08:24)
[2020-10-29] MEDS: ADVAIR HFA 45/21MCG INHALER INH SCH ×2 (08:24→20:01)
[2020-10-29] MEDS: busPIRone 10 MG TAB PO SCH ×2 (08:26→20:08)
[2020-10-29] MEDS: PANTOPRAZOLE 40MG TAB (PROTONIX) PO SCH ×2 (08:26→20:07)
[2020-10-29] MEDS: CelecoXIB (CeleBREX) 100 MG CAP PO SCH (08:26)
[2020-10-29] MEDS: FOLIC ACID 1 MG TAB PO SCH (09:00)
[2020-10-29] MEDS: THIAMINE 100 MG TAB PO SCH ×2 (09:00→20:08)
[2020-10-29] MEDS: MULTIVITAMINS/MINERALS THERAP 1 TAB PO SCH (09:00)
[2020-10-29] MEDS: ACETAMINOPHEN TAB 650MG DOSE (2X325MG) PO PRN ×2 (09:44→15:58)
--- NOTE | 2020-10-29 10:55 | MHHPEPDOC ---
General Date Of Admission: Oct 28, 2020 Legal Status: 9.13 Chief Complaint "[I am upset and depressed and I'm sick from [place] virus infection and I'm a long-hauler]. History of Present Illness HISTORY OF THE PRESENT ILLNESS: Patient is a 60 -year-old , male, who [has a long history of the bipolar disorder with many previous admissions last discharge in August 2020]. Patient came to emergency room complaining of multiple physical complaints from his recent viral infection, but also reporting that he ran out of his psychiatric medications and is feeling extremely irritable, depressed and feeling suicide. 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 He is a however, complaining of back pains, difficulty breathing, but also feeling anxious, depressed, not sleeping, and had thoughts of suicide but no clear plan or intent. He stated that he has been going to his outpatient clinic, but somehow run out of his Seroquel and Depakote and is not feeling right. He is denying any hallucination, paranoia and denies any suicidal plan or intent, but had the vague thoughts of suicide and doesn't feel safe Psychiatric Review of Systems Depression (2 or more weeks): depressed mood, feelings of worthlesness, diffic ulty concentrating, suicidal thoughts Fara (4 or more days of): denies Psychosis: denies PTSD: denies Anxiety: situational anxiety, stressor related anxiety Past Psychiatric History Previous Psychiatric Diagnosis: Bipolar disorder. Previous Psychiatric Admissions: [Multiple admissions last discharge in August 2020]. Suicide Attempts: [Denies any history of actual suicidal attempt]. Psychiatric Follow-up: [Attends [facility]]. Psychiatric medications: [Taking Seroquel, BuSpar and Depakote]. Past Medical History Medical Problems Chronic back pain, COPD and has a history of CHF. He had a recent viral infection and has persistent symptoms. Head Injury: No Seizures: No Hospitalizations: Yes Surgeries: No Family Medical/Psychiatric HX Medical Problems Noncontributory Psychiatric Disorders: No Addiction: No Suicide Attemps/Completions: No Addiction History denies (has a past history of alcohol abuse, but in full sobriety) Social History Childhood: [Unremarkable]. Abuse/Trauma:[Denies any abuse history]. Current Living Situation: [Lives alone]. Education: [High school]. Employment: [, Retired]. Social Support: [, Not very much]. Legal: [Denies any history of violence]. Marital: [, Never , single].. He has a 90-year-old mother and father has . Has a sister, but very limited contact and apparently does not have much social support Mental Status Examination General Appearance: disheveled, appears stated age Build: average Demeanor: average Eye Contact: average Activity: average Behavior: uncooperative, agitated, restless Speech: rapid, pressured, normal volume, non-spontaneous Mood: depressed, anxious, angry, irritable Affect: labile, congruent, anxious, hostile Thought Process: logical/linear, depressed Thought Content (Delusions): somatic, denies SI, HI, AVH Thought Content (Other): preoccupied Thought Content (Aggressive): none reported Perception (Hallucinations): none reported Perception (Other): none reported Cognition(Intelligence Est.): average Oriented: Awake, Alert, Oriented times three Insight: fair Judgment: Poor Psychosis: Denies Diagnoses Bipolar disorder, depressed without psychosis A-FIB/CHADSVASC A-FIB History Current/History of A-Fib/PAF?: No Current PO Anticoag Therapy: No Age/Risk Factor Scoring CHADSVASC: CHADSVASC Response (Comments) Value Gender Risk Factor Male 0 Hx of CHF Yes 1 Hx of HTN No 0 Hx of Stroke/TIA/or VTE No 0 Hx of Diabetes No 0 Hx of Vascular Disease No 0 Total 1 Treatment Treatment ordered: NONE Assessment Needs stabilization and his medications and supportive therapy Initial Treatment Plan 1. Patient was admitted on a [9.39] status. 2. Complete history was obtained. 3. With patients permission, family will be contacted and database will be expanded. 4. Patients medication regimen will be reviewed and changed accordingly. 5. Patient will be provided with protected environment. 6. Patient will be treated with individual, group, and milieu therapies. 7. Patient will receive supportive psych-education. 8. Discharge planning will commence immediately. 9. Outpatient follow-up treatment will be strongly recommended. 10. The initial treatment plan will focus initially on: * Depression. * Risk for suicide. ESTIMATED LENGTH OF STAY: [5]-[7] DAYS. TIME SPENT COUNSELING AND COORDINATING INITIAL CARE: [45] minutes. Tobacco Cessation Screen If Patient is a Smoker Smoking a few cigarettes a day and doesn't want any smoke cessation treatment Pt Refused Vital Signs Vital Signs Date Time Temp Pulse Resp B/P (MAP) Pulse Ox O2 Delivery O2 Flow Rate FiO2 10/29/20 06:54 98.3 96 20 136/65 (88) 97 Room Air Laboratory Data 24H Labs Laboratory Tests 2 10/28/20 14:28: Coronavirus (COVID-19)(PCR) NEGATIVE, Influenza Type A (RT-PCR) NEGATIVE, Influenza Type B (RT-PCR) NEGATIVE, Respiratory Syncytial Virus (PCR) NEGATIVE Medications Scheduled Buspirone HCl (Buspirone HCl) 15 Mg Tablet, 30 MG PO BID, (Reported) Celecoxib (Celecoxib) 200 Mg Capsule, 200 MG PO DAILY, (Reported) Divalproex Sodium (Divalproex Sodium ER) 500 Mg Tab.er.24h, 1,000 MG PO QHS, (Reported) Esomeprazole Magnesium (Nexium) 40 Mg Cap, 40 MG PO BID, (Reported) Levothyroxine Sodium (Levothyroxine Sodium) 75 Mcg Tablet, 75 MCG PO QAM, (Reported) Quetiapine Fumarate (Quetiapine Fumarate) 400 Mg Tablet, 400 MG PO QHS, (Reported) Tamsulosin HCl (Flomax) 0.4 Mg Capsule, 0.8 MG PO DAILY, (Reported) Scheduled PRN Albuterol Sulfate (Albuterol Sulfate Hfa) 8.5 Gm Hfa.aer.ad, 2 PUFFS INH QID PRN for SHORTNESS OF BREATH, (Reported) Calcium Carbonate (Tums) 500 Mg Chw, 1,000 MG PO Q4H PRN for HEARTBURN, (Reported) Fluticasone Propion/Salmeterol (Advair Hfa 45-21 Mcg Inhaler) 12 Gm Hfa.aer.ad, 2 PUFF INH BID PRN for SHORTNESS OF BREATH, (Reported) PT STATES USES PRN Tiotropium [place] (Spiriva) 18 Mcg Cap.w.dev, 18 MCG PO DAILY PRN for SHORTNESS OF BREATH, (Reported) PATIENT STATES USES PRN Allergies Coded Allergies: megestrol (Verified Allergy, Intermediate, swelling, 11/29/19) haloperidol (Verified Adverse Reaction, Intermediate, HALLUCINATIONS, AGITATION, 04/25/19) DESTINEE BARNES M.D. Oct 29, 2020 10:54
[2020-10-29 14:50] VITALS: BP 102/50
[2020-10-29 14:51] VITALS: BP 102/50
--- NOTE | 2020-10-29 15:30 | HPEPDOC ---
[facility] Medical History & Physical Date of Admission Oct 28, 2020 Date of Service: Oct 29, 2020 History and Physical CHIEF COMPLAINT: suicidal ideation HISTORY OF PRESENT ILLNESS: 60 year old male with history of bipolar disord, multipole admissions for same, admitted again for behavior issues. He notes he ran out of his psych meds, and is now feeling irritable, depressed and suicidal. He notes chronic back pain. He denies chest pain, shortness of breath, abdominal pain, N/V/D. PAST MEDICAL HISTORY: #CHF as per medical records SOCIAL HISTORY: Marital status: single Reviewed and non-contributory. FAMILY HISTORY: Reviewed and non-contributory. ALLERGIES: Please see below. REVIEW OF SYSTEMS: Negative except as per HPI. HOME MEDICATIONS: Please see below. PHYSICAL EXAMINATION: VITAL SIGNS: see below General: NAD, sitting comfortably in chair, anxious HEENT: NC/AT, EOMI Lungs: CTA B/L Heart: +S1S2, RRR, -M/R/G Abd: soft, NT, +BS Ext: no edema Neuro: AAOx3, no gross focal deficits LABORATORY DATA: See below. MICROBIOLOGY: Please see below. A/P: 60 year old male admitted to [facility] for suicidal ideation. #SI - as per primary team, psychiatry Thank you for this consultation. Please re-consult as needed. Vital Signs Vital Signs Date Time Temp Pulse Resp B/P (MAP) Pulse Ox O2 Delivery O2 Flow Rate FiO2 10/29/20 14:51 88 102/50 10/29/20 14:50 97.0 16 96 Room Air Home Medications Scheduled Buspirone HCl (Buspirone HCl) 15 Mg Tablet, 30 MG PO BID for anxiety Celecoxib (Celecoxib) 200 Mg Capsule, 200 MG PO DAILY Divalproex Sodium (Divalproex Sodium ER) 500 Mg Tab.er.24h, 1,000 MG PO QHS for mood Esomeprazole Magnesium (Nexium) 40 Mg Cap, 40 MG PO BID Levothyroxine Sodium (Levothyroxine Sodium) 75 Mcg Tablet, 75 MCG PO QAM Quetiapine Fumarate (Quetiapine Fumarate) 400 Mg Tablet, 400 MG PO QHS for mood Tamsulosin HCl (Flomax) 0.4 Mg Capsule, 0.8 MG PO DAILY Scheduled PRN Calcium Carbonate (Tums) 500 Mg Chw, 1,000 MG PO Q4H PRN for HEARTBURN Fluticasone Propion/Salmeterol (Advair Hfa 45-21 Mcg Inhaler) 12 Gm Hfa.aer.ad, 2 PUFF INH BID PRN for SHORTNESS OF BREATH PT STATES USES PRN Tiotropium [place] (Spiriva) 18 Mcg Cap.w.dev, 18 MCG PO DAILY PRN for SHORTNESS OF BREATH PATIENT STATES USES PRN Allergies Coded Allergies: megestrol (Verified Allergy, Intermediate, swelling, 11/29/19) haloperidol (Verified Adverse Reaction, Intermediate, HALLUCINATIONS, AGITATION, 04/25/19) A-FIB/CHADSVASC A-FIB History Current/History of A-Fib/PAF?: No Age/Risk Factor Scoring CHADSVASC: CHADSVASC Response (Comments) Value Gender Risk Factor Male 0 Hx of CHF Yes 1 Hx of HTN No 0 Hx of Stroke/TIA/or VTE No 0 Hx of Diabetes No 0 Hx of Vascular Disease No 0 Total 1 OSBALDO CAVAZOS MD Oct 29, 2020 15:30
[2020-10-29] MEDS: NICOTINE 14 MG/24 HR TRANSDERMAL TD SCH (16:24)
[2020-10-29] MEDS: OLANZapine ORAL DISINTEGRATING TAB 5MG PO PRN ×2 (18:35→20:08)
[2020-10-29] MEDS ORDERED: diphenhydrAMINE 50MG CAP PO ONE (19:55)
[2020-10-29] MEDS ORDERED: OLANZapine ORAL DISINTEGRATING TAB 5MG PO ONE (19:55)
[2020-10-29] MEDS: TAMSULOSIN 0.4 MG CAP PO SCH (20:08)
[2020-10-29] MEDS: QUEtiapine FUMARATE 200 MG TAB PO SCH (20:09)
[2020-10-29] MEDS: DIVALPROEX 500MG *ER* TAB PO SCH (20:10)
[2020-10-29 22:00] VITALS: BP 134/65
[2020-10-30] MEDS: LEVOTHYROXINE 75MCG TABLET (0.075MG) PO SCH (06:08)
[2020-10-30] MEDS: ACETAMINOPHEN TAB 650MG DOSE (2X325MG) PO PRN (07:18)
[2020-10-30] MEDS: ADVAIR HFA 45/21MCG INHALER INH SCH (08:23)
[2020-10-30] MEDS: PANTOPRAZOLE 40MG TAB (PROTONIX) PO SCH (08:24)
[2020-10-30] MEDS: TIOTROPIUM INHALER/CAPSULE (SPIRIVA) INH SCH (08:24)
[2020-10-30] MEDS: MULTIVITAMINS/MINERALS THERAP 1 TAB PO SCH (08:24)
[2020-10-30] MEDS: NICOTINE 14 MG/24 HR TRANSDERMAL TD SCH (08:24)
[2020-10-30] MEDS: FOLIC ACID 1 MG TAB PO SCH (08:24)
[2020-10-30] MEDS: busPIRone 10 MG TAB PO SCH (08:25)
[2020-10-30] MEDS: THIAMINE 100 MG TAB PO SCH (08:25)
[2020-10-30] MEDS ORDERED: QUET400T PO (08:56)
[2020-10-30] MEDS ORDERED: DIVA500T9 PO (08:56)
[2020-10-30] MEDS ORDERED: BUSP15TA47 PO (08:56)
[2020-10-30] MEDS: CelecoXIB (CeleBREX) 100 MG CAP PO SCH (09:32)
--- NOTE | 2020-10-30 11:21 | MHDSPDOC ---
[facility] Discharge Summary Discharge Summary DATE OF ADMISSION: Oct 28, 2020 at 18:56 DATE OF DISCHARGE: 10/30/2020 DISCHARGE DIAGNOSES: 1. . Bipolar disorder, depressed 2. . REASON FOR ADMISSION: 60-year-old male with a long history of bipolar disorder admitted due to to complaint of increasing depression and suicidal thoughts after running out of his medicine CONSULTANTS INVOLVED: None TREATMENT AND PROGRESS ON THE UNIT : Patient apparently is missed her outpatient appointment and has been without his Depakote, BuSpar and Seroquel. He was restarted on his medications and he has cooperated without any complaint of side effect. He was quite irritable, demanding, but didn't show any dangerous behavior and clearly is not suicidal. He is not expressing any paranoia and is anxious to return to his schedule to work on Tuesday and is willing to continue his outpatient treatment.. HOSPITAL COURSE: . He was somewhat demanding, irritable and unpleasant, but is not showing any bizarre or aggressive behavior and denies any suicidal thoughts and appears to be at his baseline. He isn't requesting discharge in writing, claiming that he needs to return to his work on Tuesday and strongly denies any suicidal thoughts. DISCHARGE ASSESSMENT: He is maintaining good control and is not showing any dangerous behavior and appears to be stable at this baseline.] MENTAL STATUS EXAMINATION ON DISCHARGE: Patient is a 60-year old male, who is , somewhat demanding, but in control. Speech is relevant. Language skills are fair. Thought processes including: , Organized. Thought content: , Denies any paranoia. Abstract reasoning, and computation: Faiir. Description of associations: Relevant. Description of abnormal or psychotic thoughts: Denies any psychotic symptoms and denies any suicidal thoughts. Judgment: Fair. Insight: fair. Orientation to , well-oriented. Recent and remote memory: Good. Attention span and concentration: fair. Language: . Fund of knowledge: Average. Mood: , Somewhat irritable but denies any serious depression. Affect: Labile and demanding but appropriate. At times. MEDICATIONS ON DISCHARGE: - for ., Depakote 1000 mg at bedtime, BuSpar 30 mg at bedtime and Seroquel 400 mg at bedtime. 7 days with 3 refills - for . - for . PLAN/FOLLOWUP ARRANGEMENTS: [His current outpatient clinic]. The amount of time spent in the coordination of care for this patient was approximately [40] minutes. ETOH/Disorder Med Rx ETOH/DRUG DISORDER RX: N/A Vital Signs/I&Os Vital Signs Date Time Temp Pulse Resp B/P (MAP) Pulse Ox O2 Delivery O2 Flow Rate FiO2 10/29/20 22:00 85 134/65 10/29/20 14:50 97.0 16 96 Room Air Medications Scheduled Buspirone HCl (Buspirone HCl) 15 Mg Tablet, 30 MG PO BID for anxiety for 7 Days, #14 Celecoxib (Celecoxib) 200 Mg Capsule, 200 MG PO DAILY, (Reported) Divalproex Sodium (Divalproex Sodium ER) 500 Mg Tab.er.24h, 1,000 MG PO QHS for mood for 7 Days, #14 Esomeprazole Magnesium (Nexium) 40 Mg Cap, 40 MG PO BID, (Reported) Levothyroxine Sodium (Levothyroxine Sodium) 75 Mcg Tablet, 75 MCG PO QAM, (Reported) Quetiapine Fumarate (Quetiapine Fumarate) 400 Mg Tablet, 400 MG PO QHS for mood for 7 Days, #14 Tamsulosin HCl (Flomax) 0.4 Mg Capsule, 0.8 MG PO DAILY, (Reported) Scheduled PRN Calcium Carbonate (Tums) 500 Mg Chw, 1,000 MG PO Q4H PRN for HEARTBURN, (Reported) Fluticasone Propion/Salmeterol (Advair Hfa 45-21 Mcg Inhaler) 12 Gm Hfa.aer.ad, 2 PUFF INH BID PRN for SHORTNESS OF BREATH, (Reported) PT STATES USES PRN Tiotropium [place] (Spiriva) 18 Mcg Cap.w.dev, 18 MCG PO DAILY PRN for SHORTNESS OF BREATH, (Reported) PATIENT STATES USES PRN Allergies Coded Allergies: megestrol (Verified Allergy, Intermediate, swelling, 11/29/19) haloperidol (Verified Adverse Reaction, Intermediate, HALLUCINATIONS, AGITATION, 04/25/19) DESTINEE BARNES M.D. Oct 30, 2020 11:21
--- NOTE | 2020-10-31 10:16 | ECGEPIP ---
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
== END 2020-10-30 11:35 | disposition home or self-care (01) | DRG 885 ==
LOC: M ED 14:07 → M ED INP 10-28 18:56 → M PSY 10-28 20:31
PROVIDERS: ADMIT Psychiatry & Neurology Psychiatry; ATTEND Psychiatry & Neurology Psychiatry
DX: F31.9 Bipolar disorder, unspecified (principal); R45.851 Suicidal ideations; Z91.14 Patient's other noncompliance with medication regimen; Z79.899 Other long term (current) drug therapy; Z88.8 Allergy status to other drugs, medicaments and biological substances

== ENCOUNTER → 2020-12-19 | Outpatient (CLI) | payer MEDICARE, MEDICAID ==
[~2020-12-19] MED LIST changes: +ALBU8.5H INH; +GASTROGRAFIN SOLUTION 30ML (Q9963) As Ordered ONE; +ISOVUE-370 76% 100ML VIAL As Ordered ONE; +SPIR1CAP PO
--- NOTE | 2020-12-19 11:13 | REP ---
INDICATION: RUQ PAIN. COMPARISON: CT 07/08/2013, CXR 10/03/2020, low-dose lung CT 01/16/2019. TECHNIQUE: CT abdomen and pelvis performed without IV contrast. CT abdomen pelvis performed with IV contrast as well, following intravenous administration of 100 cc of Isovue 370. Oral Gastrografin mixture, 2 doses per our bowel contrast protocol given. Sagittal, coronal and 3D MIP reconstruction images are performed. FINDINGS: Lung bases: In the left lower lobe there is a new pleural based opacity 3.8 by 2.7 by 2.1 cm abutting the diaphragmatic pleura this is in the posterior basal segment. Abutting the posterior margin of the left heart near the aorta in the left lower lobe is another confluent density 2.4 by 1 cm. There are smaller cysts scattered satellite nodules adjacent to the larger posterior basal segment the finding. Underlying COPD changes are noted there is no pleural effusion. Liver: Shows some intra in hepatic ductal dilatation similar previous study with his known cholecystectomy. Portal and hepatic veins opacify and grossly intact. No hepatic mass or adjacent ascites. Left hepatic lobe mildly prominent. Gallbladder: Surgically absent. Common duct in the rishi hepatis to 10 mm, seen in the pancreatic head and without calcification within. The pancreatic duct is also mildly prominent but all of this is similar to the previous exam. Spleen: Normal. Adrenals: Normal. Pancreas: Dilatation of the common duct in the pancreatic head and the pancreatic duct as before, no mass, calcification, peripancreatic adenopathy or fluid. Kidneys: Symmetric enhancement without stones, mass, cyst, hydronephrosis or hydroureter. No perinephric or periureteral edema. Small and large bowel: Small bowel loops contrast filled with oral contrast throughout and no dilatation or air-fluid levels. The colon shows constipation with large volume stool in the right colon and hepatic flexure. Less stool in the transverse colon, moderate in the left colon and rectosigmoid. Lung window review of all CT slices shows no perforation or free air. Free fluid: None. Adenopathy: No definite periaortic, other retroperitoneal or mesenteric lymphadenopathy. Appendix: Is not definitely identified but there is no inflammatory change or fluid collection about the cecum. Osseous structures: Left-sided spondylolysis at L5 unchanged. Sacralization transverse process of L5 on the right. No new or acute bony finding. Pelvis: No mass. Bladder well filled without the stone, mass or wall thickening there is a "bladder ear" projecting over to the proximal inguinal canal on the right side unchanged. No pelvic ascites or adenopathy. Prostate with multiple calcifications from prior inflammatory disease. No inguinal bowel herniation, ventral hernia or pathologic sized inguinal adenopathy. IMPRESSION: 1. Multiple of left lower lobe opacities, masslike or nodular infiltrates posterior basal and medial basal segment segments. The larger at 3.8 x 2.7 cm, smaller up to 2.5 cm. There are several daughter nodules adjacent to the larger of these. No effusion. Some COPD again noted. Nodular infiltrates versus malignancy. The right base infiltrates on the previous chest x-ray 10/03/2020 are resolved. 2. Constipation with significant stool in the right colon and hepatic flexure but without colonic or small bowel obstruction. There is less stool in the transverse and left colon to the rectosigmoid. No dilated small bowel loops or air-fluid levels. No free air or ascites. 3. Cholecystectomy with chronic intrahepatic biliary dilatation and prominence of the common duct in the rishi hepatis and pancreatic head but unchanged from the 2014 CT. No new or acute finding in the liver. 4. Adrenal glands, kidneys, spleen and other structures all grossly unremarkable. <Electronically signed by Florentin Romero > 12/19/20 [id number]
== END ==
LOC: M RAD 08:36
PROVIDERS: ATTEND Physician Assistant Medical
DX: R10.11 Right upper quadrant pain (principal); J44.9 Chronic obstructive pulmonary disease, unspecified; R91.8 Other nonspecific abnormal finding of lung field; K59.00 Constipation, unspecified
CPT/HCPCS: 74178; Q9963; Q9967

== ENCOUNTER → 2020-12-22 | Outpatient (CLI) | payer MEDICARE, MEDICAID ==
[~2020-12-22] MED LIST changes: -GASTROGRAFIN SOLUTION 30ML (Q9963) As Ordered ONE; -ISOVUE-370 76% 100ML VIAL As Ordered ONE; +QUET1TAB17 PO; -QUET25TA3 PO; -QUET400T PO; +QUET400T2 PO
== END ==
LOC: M PLARAD 09:02
PROVIDERS: ATTEND Physician Assistant Medical
DX: R91.8 Other nonspecific abnormal finding of lung field (principal); I70.0 Atherosclerosis of aorta
CPT/HCPCS: 78815; A9552

== ENCOUNTER → 2021-02-06 | Outpatient (CLI) | payer MEDICARE, MEDICAID ==
--- NOTE | 2021-02-08 05:14 | REP ---
INDICATION: ABNORMAL FINDING OF LUNG FIELD COMPARISON: None TECHNIQUE: Axial noncontrast images from the thoracic inlet to the upper abdomen with coronal and sagittal reformations. This CT examination was performed using the following dose reduction techniques: Automated exposure control, adjustment of mA and/or kv according to the patient's size, and use of iterative reconstruction technique. FINDINGS: Current examination demonstrates areas of chronic scarring and mild to early moderate emphysematous changes bilaterally. The previously noted areas of nodular/rounded consolidations in the left lower lobe as well as areas of ill-defined somewhat nodular/linear consolidations in the right upper lobe and anterior right lower lobe on prior examinations have resolved. No current acute consolidation, obvious suspicious nodule or mass noted. No effusion. No pneumothorax. Mediastinum demonstrates few small mediastinal lymph nodes are nonspecific and likely within normal range. Thoracic aorta, pulmonary vasculature, and heart/pericardium appear normal by noncontrast evaluation. Surrounding musculoskeletal structures are intact. IMPRESSION: 1. Previously noted areas of consolidation have resolved. No new suspicious acute process identified. 2. Chronic changes along with mild early moderate COPD/emphysematous disease noted. <Electronically signed by Hill Avila > 02/08/21 [id number]
== END ==
LOC: M PLAIMG 09:04
PROVIDERS: ATTEND Internal Medicine Pulmonary Disease
DX: J44.9 Chronic obstructive pulmonary disease, unspecified (principal); R91.8 Other nonspecific abnormal finding of lung field

== ENCOUNTER → 2021-02-13 | Outpatient (CLI) | payer MEDICARE, MEDICAID ==
--- NOTE | 2021-02-13 13:50 | REP ---
INDICATION: DISC DEGENERATION, R/O METS. COMPARISON: 05/04/2018 TECHNIQUE/RADIOTRACER AND DOSE: After the intravenous administration of 21.20 mCi of technetium 99 M MDP a total body bone scan was obtained. FINDINGS: There is patchy uptake seen in the left wrist. There is a focus of increased radio activity in the right hand in the region of the 1st metacarpophalangeal joint. This is essentially unchanged compared to the prior exam. Once again, there is increased activity seen in the left ankle. This appears unchanged. IMPRESSION: 1. Increased activity in the left wrist representing a change from the prior exam. Active arthritic change versus trauma. This should be correlated clinically. There are no plain films to review. 2. Chronic increased activity in the right hand and left ankle as described above. 3. There is no compelling evidence for metastatic disease. <Electronically signed by Raleigh Gomez > 02/13/21 [id number]
== END ==
LOC: M RAD 10:13
PROVIDERS: ATTEND Physician Assistant
DX: M51.37 Other intervertebral disc degeneration, lumbosacral region (principal)
CPT/HCPCS: 78306; A9503

== ENCOUNTER → 2021-07-03 | Outpatient (CLI) | payer MEDICARE, MEDICAID | LOC: M WHC 08:22 | PROVIDERS: ATTEND Physician Assistant Medical | DX: M81.8 Other osteoporosis without current pathological fracture (principal) ==

== ENCOUNTER → 2021-09-02 | Outpatient (REF) | payer MEDICARE, MEDICAID ==
[2021-09-02 10:09] LABS: APPEARANCE, URINE CLOUDY (CLEAR); BACTERIA, URINE AUTO 2+ (NEGATIVE); BILIRUBIN, URINE AUTO NEGATIVE (NEGATIVE); BLOOD, URINE BLOOD NEGATIVE (NEGATIVE); COLOR, URINE YELLOW (YELLOW); GLUCOSE, URINE (UA) AUTO NEGATIVE (NEGATIVE); KETONE, URINE AUTO NEGATIVE (NEGATIVE); LEUKOCYTE ESTERASE, URINE AUTO NEGATIVE (NEGATIVE); NITRITE, URINE AUTO NEGATIVE (NEGATIVE); PROTEIN, URINE AUTO NEGATIVE (NEGATIVE); RBC, URINE AUTO 0 /HPF (0-3); SPECIFIC GRAVITY URINE AUTO 1.011 (1.002-1.035); SQUAMOUS EPITHELIAL CELL UR AU 0 /HPF (0-6); UROBILINOGEN, URINE AUTO 0.2 mg/dL (0.0-2.0); WBC, URINE AUTO 0 /HPF (0-3)
== END ==
LOC: M SFHCPLAZ 09:43
PROVIDERS: ATTEND Physician Assistant Medical
DX: R30.0 Dysuria (principal)

== ENCOUNTER → 2021-09-22 | Outpatient (REF) | payer MEDICARE, MEDICAID ==
[2021-09-22 11:26] LABS: APPEARANCE, URINE HAZY (CLEAR); BACTERIA, URINE AUTO NEGATIVE (NEGATIVE); BILIRUBIN, URINE AUTO NEGATIVE (NEGATIVE); BLOOD, URINE BLOOD NEGATIVE (NEGATIVE); COLOR, URINE YELLOW (YELLOW); GLUCOSE, URINE (UA) AUTO NEGATIVE (NEGATIVE); KETONE, URINE AUTO NEGATIVE (NEGATIVE); LEUKOCYTE ESTERASE, URINE AUTO NEGATIVE (NEGATIVE); MUCUS, URINE SMALL (NEGATIVE); NITRITE, URINE AUTO NEGATIVE (NEGATIVE); PROTEIN, URINE AUTO NEGATIVE (NEGATIVE); RBC, URINE AUTO 0 /HPF (0-3); SPECIFIC GRAVITY URINE AUTO 1.012 (1.002-1.035); SQUAMOUS EPITHELIAL CELL UR AU 0 /HPF (0-6); UROBILINOGEN, URINE AUTO 0.2 mg/dL (0.0-2.0); WBC, URINE AUTO 1 /HPF (0-3)
== END ==
LOC: M SFHCPLAZ 10:08
PROVIDERS: ATTEND Physician Assistant Medical
DX: N40.1 Benign prostatic hyperplasia with lower urinary tract symptoms (principal)

== ENCOUNTER → 2022-03-10 | Outpatient (CLI) | payer MEDICARE, MEDICAID | LOC: M RAD 08:05 | PROVIDERS: ATTEND Internal Medicine Pulmonary Disease | DX: F17.218 Nicotine dependence, cigarettes, with other nicotine-induced disorders (principal); R91.8 Other nonspecific abnormal finding of lung field ==

== ENCOUNTER 2022-12-24 08:08 | Day surgery (SDC) | payer MEDICARE, MEDICAID ==
[~2022-12-24] VITALS: Ht 172.7 cm; Wt 54.0 kg
[~2022-12-24 08:08] MED LIST changes: +ARTIDRO4 OU; +ASPI81TA26 PO; +LYRI75CA PO; +NS 1,000 ML IV ONE; +NYST-38 SS; -NYST50SS SS; -POLYOPD OU; +TIZA10TA PO
[2022-12-24] MEDS ORDERED: LIDOCAINE 2% 100MG/5ML SDV (FOR ANES.) As Ordered ONE (08:41)
[2022-12-24] MEDS ORDERED: propofoL 200 MG/20 ML VIAL As Ordered ONE (08:41)
[2022-12-24 09:43] VITALS: BP 85/51; TEMP 96.8; O2SAT 99
== END 2022-12-24 10:23 | disposition home or self-care (01) ==
LOC: M OPP 08:08
PROVIDERS: ATTEND Internal Medicine Gastroenterology
DX: Z86.010 Personal history of colon polyps (principal); K63.5 Polyp of colon; K64.8 Other hemorrhoids; Q43.8 Other specified congenital malformations of intestine; F17.200 Nicotine dependence, unspecified, uncomplicated; Z79.52 Long term (current) use of systemic steroids; Z79.82 Long term (current) use of aspirin; Z79.890 Hormone replacement therapy; Z79.899 Other long term (current) drug therapy; Z88.8 Allergy status to other drugs, medicaments and biological substances

== ENCOUNTER → 2023-01-06 | Outpatient (CLI) | payer MEDICARE, MEDICAID ==
[~2023-01-06] MED LIST changes: -NS 1,000 ML IV ONE
[2023-01-06 17:12] LABS: CALCIUM LEVEL 9.3 MG/DL (8.3-10.6); CHOLESTEROL RISK RATIO 1.86 (<5); HDL CHOLESTEROL 64.2 MG/DL (>40); LDL CHOLESTEROL 34.2 MG/DL (<100); NON-HDL-C 55.8 MG/DL
[2023-01-06 17:13] LABS: PTH INTACT 36.7 PG/ML (18.5-88.0); THYROID STIMULATING HORMONE 2.328 uIU/ML (0.55-4.78); TOTAL 25(OH) VITAMIN D 41.7 NG/ML (20.0-100.0)
[2023-01-06 17:14] LABS: FERRITIN 75.4 NG/ML (10.5-307.3); FREE T4 0.84 NG/DL (0.89-1.76)
[2023-01-08 16:10] LABS: H PYLORI SERUM QUANT IGM <9.0 units (0.0-8.9); H PYLORI SERUM QUANT IgG ABY 0.15 (0.00-0.79)
== END ==
LOC: M PLALAB 14:33
PROVIDERS: ATTEND Physician Assistant Medical
DX: E55.9 Vitamin D deficiency, unspecified (principal); D50.9 Iron deficiency anemia, unspecified; F41.9 Anxiety disorder, unspecified; Z13.220 Encounter for screening for lipoid disorders; Z12.5 Encounter for screening for malignant neoplasm of prostate; Z79.899 Other long term (current) drug therapy

== ENCOUNTER → 2023-02-02 | Outpatient (CLI) | payer MEDICARE, MEDICAID ==
[~2023-02-02] MED LIST changes: +CELE0.09 PO; -CELE1CAP9 PO; +GASTROGRAFIN SOLUTION 30ML As Ordered ONE; +ISOVUE-370 76% 100ML VIAL As Ordered ONE
== END ==
LOC: M RAD 08:30
PROVIDERS: ATTEND Physician Assistant Medical
DX: R10.11 Right upper quadrant pain (principal)
CPT/HCPCS: 74178; Q9963; Q9967

== ENCOUNTER → 2023-02-24 | Outpatient (CLI) | payer MEDICARE, MEDICAID ==
[~2023-02-24] MED LIST changes: -GASTROGRAFIN SOLUTION 30ML As Ordered ONE; -ISOVUE-370 76% 100ML VIAL As Ordered ONE
[2023-02-24 15:20] LABS: BASO # 0.1 10^3/uL (0.0-0.2); BASO % 1.4 % (0.0-1.0); EOS # 0.4 10^3/uL (0.0-0.5); EOS % 5.1 % (0.0-3.0); HEMATOCRIT 41.3 % (42.0-52.0); HEMOGLOBIN 13.8 g/dl (13.5-17.5); LYMPH # 2.1 10^3/uL (1.5-5.0); LYMPH % 26.2 % (24.0-44.0); MEAN CORPUSCULAR HEMOGLOBIN 32.1 pg (27.0-33.0); MEAN CORPUSCULAR HGB CONC 33.4 g/dl (32.0-36.5); MONO # 1.2 10^3/uL (0.0-0.8); MONO % 15.3 % (2.0-8.0); NEUTROPHILS # 4.2 10^3/uL (1.5-8.5); NEUTROPHILS % 51.8 % (36.0-66.0); PLATELET COUNT, AUTOMATED 283 10^3/uL (150-450); WHITE BLOOD COUNT 8.1 10^3/uL (4.0-10.0)
== END ==
LOC: M PLALAB 08:51
PROVIDERS: ATTEND Physician Assistant Medical
DX: D50.9 Iron deficiency anemia, unspecified (principal)

== ENCOUNTER → 2023-03-23 | Outpatient (REF) | payer MEDICARE, MEDICAID ==
[2023-03-23 14:14] LABS: AMORPHOUS SEDIMENT SMALL (NEGATIVE); APPEARANCE, URINE CLEAR (CLEAR); BACTERIA, URINE AUTO NEGATIVE (NEGATIVE); BILIRUBIN, URINE AUTO NEGATIVE (NEGATIVE); BLOOD, URINE BLOOD NEGATIVE (NEGATIVE); COLOR, URINE YELLOW (YELLOW); GLUCOSE, URINE (UA) AUTO NEGATIVE (NEGATIVE); KETONE, URINE AUTO NEGATIVE (NEGATIVE); LEUKOCYTE ESTERASE, URINE AUTO NEGATIVE (NEGATIVE); MUCUS, URINE SMALL (NEGATIVE); NITRITE, URINE AUTO NEGATIVE (NEGATIVE); PROTEIN, URINE AUTO NEGATIVE (NEGATIVE); RBC, URINE AUTO 0 /HPF (0-3); SQUAMOUS EPITHELIAL CELL UR AU 0 /HPF (0-6); UROBILINOGEN, URINE AUTO 0.2 mg/dL (0.0-2.0); WBC, URINE AUTO 0 /HPF (0-3)
== END ==
LOC: M SFHCPLAZ 12:53
PROVIDERS: ATTEND Physician Assistant Medical
DX: Z78.9 Other specified health status (principal); R82.90 Unspecified abnormal findings in urine; Z79.899 Other long term (current) drug therapy

== ENCOUNTER → 2023-09-15 | Outpatient (REF) | payer MEDICARE, MEDICAID ==
[2023-09-15 10:49] LABS: APPEARANCE, URINE CLEAR (CLEAR); BACTERIA, URINE AUTO NEGATIVE (NEGATIVE); BILIRUBIN, URINE AUTO NEGATIVE (NEGATIVE); BLOOD, URINE BLOOD NEGATIVE (NEGATIVE); COLOR, URINE YELLOW (YELLOW); GLUCOSE, URINE (UA) AUTO NEGATIVE (NEGATIVE); KETONE, URINE AUTO NEGATIVE (NEGATIVE); LEUKOCYTE ESTERASE, URINE AUTO NEGATIVE (NEGATIVE); NITRITE, URINE AUTO NEGATIVE (NEGATIVE); PROTEIN, URINE AUTO NEGATIVE (NEGATIVE); RBC, URINE AUTO 0 /HPF (0-3); SPECIFIC GRAVITY URINE AUTO 1.009 (1.002-1.035); SQUAMOUS EPITHELIAL CELL UR AU 0 /HPF (0-6); UROBILINOGEN, URINE AUTO 0.2 mg/dL (0.0-2.0); WBC, URINE AUTO 0 /HPF (0-3)
== END ==
LOC: M SMT 09:33
PROVIDERS: ATTEND Physician Assistant
DX: R30.0 Dysuria (principal)

== ENCOUNTER 2023-12-05 11:57 | Inpatient (IN) | payer MEDICAID, MEDICARE ==
[~2023-12-05] VITALS: Ht 172.7 cm; Wt 53.8 kg
[2023-12-05 13:21] LABS: HEMATOCRIT 40.4 % (42.0-52.0); HEMOGLOBIN 13.8 g/dl (13.5-17.5); MEAN CORPUSCULAR HEMOGLOBIN 33.1 pg (27.0-33.0); MEAN CORPUSCULAR HGB CONC 34.2 g/dl (32.0-36.5); MEAN CORPUSCULAR VOLUME 96.9 fl (80.0-96.0); PLATELET COUNT, AUTOMATED 306 10^3/uL (150-450); RED BLOOD COUNT 4.17 10^6/uL (4.30-6.10); WHITE BLOOD COUNT 8.1 10^3/uL (4.0-10.0)
[2023-12-05 13:41] LABS: AMPHETAMINES LEVEL URINE NEGATIVE (NEGATIVE); BARBITURATES URINE NEGATIVE (NEGATIVE); BENZODIAZEPINES URINE NEGATIVE (NEGATIVE); CANNABINOIDS URINE NEGATIVE (NEGATIVE); COCAINE METABOLITE URINE NEGATIVE (NEGATIVE); METHADONE URINE NEGATIVE (NEGATIVE); OPIATES URINE NEGATIVE (NEGATIVE); PHENCYCLIDINE URINE NEGATIVE (NEGATIVE)
[2023-12-05 13:44] LABS: ETHYL ALCOHOL (ETHANOL) 0.005 % (0.000-0.010)
[2023-12-05 13:45] LABS: ALBUMIN 3.8 G/DL (3.2-5.2); ALKALINE PHOSPHATASE 86 U/L (46-116); ALT/SGPT 24 U/L (7.0-40); AST/SGOT 16 U/L (<34); BILIRUBIN,DIRECT < 0.1 MG/DL (<0.4); BILIRUBIN,TOTAL 0.3 MG/DL (0.3-1.2); BLOOD UREA NITROGEN 22 MG/DL (9-23); CALCIUM LEVEL 9.2 MG/DL (8.3-10.6); CARBON DIOXIDE LEVEL 26 MMOL/L (20-31); CHLORIDE LEVEL 108 MMOL/L (98-107); CREATININE FOR GFR 1.15 MG/DL (0.70-1.30); GLOMERULAR FILTRATION RATE > 60.0 (>49); GLUCOSE, FASTING 86 MG/DL (74-106); POTASSIUM SERUM 4.2 MMOL/L (3.5-5.1); SALICYLATE LEVEL < 3.0 MG/DL (<30); SODIUM LEVEL 140 MMOL/L (136-145); TOTAL PROTEIN 6.2 G/DL (5.7-8.2)
[2023-12-05 13:47] LABS: THYROID STIMULATING HORMONE 0.691 uIU/ML (0.55-4.78)
[2023-12-05] MEDS ORDERED: FLUT1BLS8 INH (17:17)
[2023-12-05] MEDS: ACETAMINOPHEN TAB 650MG DOSE (2X325MG) PO ONE (17:20)
[2023-12-05] MEDS ORDERED: CARV3.12 PO (17:20)
[2023-12-05] MEDS ORDERED: HOME MED LIST COMPLETE! XX SCH (17:20)
[2023-12-05] MEDS ORDERED: MAALOX 30 ML SUSP *UDC PO PRN (18:10)
[2023-12-05] MEDS ORDERED: IBUPROFEN 400MG TAB PO PRN (18:10)
[2023-12-05] MEDS ORDERED: MOM 30ML SUSPENSION UDC PO PRN (18:10)
[2023-12-05 20:59] VITALS: BP 136/74; TEMP 98.1; O2SAT 98
[2023-12-05] MEDS: QUEtiapine FUMARATE 200 MG TAB PO SCH (21:14)
[2023-12-05] MEDS: PANTOPRAZOLE 40MG TAB (PROTONIX) PO SCH (21:14)
[2023-12-05] MEDS: CARVedilol 3.125 MG TAB PO SCH (21:29)
[2023-12-06] MEDS: LEVOTHYROXINE 75MCG TABLET (0.075MG) PO SCH (05:15)
[2023-12-06 05:47] VITALS: BP 124/86; TEMP 97.9; O2SAT 95
[2023-12-06] MEDS: ACETAMINOPHEN TAB 650MG DOSE (2X325MG) PO PRN (06:48)
[2023-12-06 08:43] VITALS: BP 121/56
[2023-12-06] MEDS: PANTOPRAZOLE 40MG TAB (PROTONIX) PO SCH (09:36)
[2023-12-06] MEDS: SYMBICORT 160/4.5MCG INHALER 6GM INH SCH (11:27)
[2023-12-06] MEDS: DIVALPROEX 250MG TAB PO SCH (11:28)
[2023-12-06] MEDS: NICOTINE 21MG/24HR 1 EA TRANSDERMAL TD PRN (13:44)
[2023-12-06 18:46] VITALS: BP 134/60; TEMP 97.6
[2023-12-06 21:22] VITALS: BP 137/71
[2023-12-06] MEDS: LORazepam 2 MG TAB PO PRN (21:30)
[2023-12-06] MEDS: PREGABALIN 25 MG CAP (LYRICA) PO SCH (21:30)
[2023-12-06] MEDS: THIAMINE 100 MG TAB PO SCH (21:30)
[2023-12-07 02:00] VITALS: BP 132/74
[2023-12-07 06:36] VITALS: BP 136/79; TEMP 98.1; O2SAT 100
[2023-12-07 06:43] VITALS: BP 136/79
[2023-12-07 08:08] VITALS: BP 123/75
[2023-12-07] MEDS: MULTIVITAMINS/MINERALS THERAP 1 TAB PO SCH (08:14)
[2023-12-07] MEDS: FOLIC ACID 1MG TAB PO SCH (08:14)
[2023-12-07] MEDS: CALCIUM CARBONATE 500 MG CHEW U/D PO PRN (12:03)
[2023-12-07 14:32] LABS: MONO SCRN NEGATIVE (NEGATIVE)
[2023-12-07] MEDS: diphenhydrAMINE 25MG CAP PO PRN (16:38)
[2023-12-07 17:45] VITALS: BP 129/64; TEMP 97.4
[2023-12-07] MEDS: cloNIDine 0.1MG TABLET PO PRN (18:15)
[2023-12-08 06:34] VITALS: BP 122/60; TEMP 97.7; O2SAT 97
[2023-12-08] MEDS: SERTRALINE HCL 50 MG TAB PO SCH (09:00)
[2023-12-08 20:13] VITALS: BP 165/96
[2023-12-09] MEDS: traZODone 50 MG TAB PO PRN (00:50)
[2023-12-09] MEDS ORDERED: PREGABALIN 25 MG CAP (LYRICA) As Ordered ONE (08:05)
[2023-12-09] MEDS ORDERED: PANTOPRAZOLE 40MG TAB (PROTONIX) As Ordered ONE (08:06)
[2023-12-09] MEDS ORDERED: SERTRALINE HCL 50 MG TAB As Ordered ONE (08:06)
[2023-12-09] MEDS ORDERED: CALCIUM CARBONATE 500 MG CHEW U/D As Ordered ONE (09:17)
[2023-12-09] MEDS: MIRALAX *UNIT DOSE* 17GM PACKET PO ONE (11:20)
[2023-12-09] MEDS ORDERED: MIRALAX *UNIT DOSE* 17GM PACKET As Ordered ONE (11:22)
== END 2023-12-09 13:13 | disposition home or self-care (01) | DRG 885 ==
LOC: M ED 11:57 → M ED INP 18:08 → M PSY 20:23
PROVIDERS: ADMIT Student in an Organized Health Care Education/Training Program; ATTEND Student in an Organized Health Care Education/Training Program
DX: F31.30 Bipolar disorder, current episode depressed, mild or moderate severity, unspecified (principal); R45.851 Suicidal ideations; F10.90 Alcohol use, unspecified, uncomplicated; E03.9 Hypothyroidism, unspecified; F60.89 Other specific personality disorders; M54.9 Dorsalgia, unspecified; K21.9 Gastro-esophageal reflux disease without esophagitis; G89.29 Other chronic pain; D64.9 Anemia, unspecified; N40.0 Benign prostatic hyperplasia without lower urinary tract symptoms; R22.0 Localized swelling, mass and lump, head; J44.9 Chronic obstructive pulmonary disease, unspecified; I50.9 Heart failure, unspecified; F41.9 Anxiety disorder, unspecified; Z86.16 Personal history of COVID-19; Z86.73 Personal history of transient ischemic attack (TIA), and cerebral infarction without residual deficits; Z79.890 Hormone replacement therapy; Z79.899 Other long term (current) drug therapy; Z88.8 Allergy status to other drugs, medicaments and biological substances; Z56.0 Unemployment, unspecified; Z59.86 Financial insecurity; Z91.51 Personal history of suicidal behavior

== ENCOUNTER → 2024-01-24 | Outpatient (REF) | payer MEDICARE, MEDICAID ==
[~2024-01-24] MED LIST changes: +CARV3.12 PO; +FLUT1BLS8 INH; +GABA-1490 PO; -GABA600T4 PO
== END ==
LOC: M LAB REF 15:11
PROVIDERS: ATTEND Physician Assistant Medical
DX: R30.0 Dysuria (principal)

== ENCOUNTER → 2024-02-29 | Outpatient (REF) | payer MEDICARE, MEDICAID ==
[~2024-02-29] MED LIST changes: +GABA-1172 PO; -GABA-282 PO
== END ==
LOC: M SFHCPLAZ 17:03
PROVIDERS: ATTEND Physician Assistant Medical
DX: J06.9 Acute upper respiratory infection, unspecified (principal)

== ENCOUNTER → 2024-07-25 | Outpatient (REF) | payer MEDICARE, MEDICAID ==
[2024-07-25 13:43] LABS: BASO # 0.1 10^3/uL (0.0-0.2); BASO % 1.4 % (0.0-1.0); EOS # 0.1 10^3/uL (0.0-0.5); EOS % 1.2 % (0.0-3.0); HEMOGLOBIN 13.8 g/dl (13.5-17.5); LYMPH # 1.8 10^3/uL (1.5-5.0); LYMPH % 21.7 % (24.0-44.0); MEAN CORPUSCULAR HEMOGLOBIN 31.2 pg (27.0-33.0); MEAN CORPUSCULAR HGB CONC 32.9 g/dl (32.0-36.5); MONO # 0.9 10^3/uL (0.0-0.8); MONO % 10.9 % (2.0-8.0); NEUTROPHILS # 5.2 10^3/uL (1.5-8.5); NEUTROPHILS % 64.3 % (36.0-66.0); PLATELET COUNT, AUTOMATED 381 10^3/uL (150-450); RED BLOOD COUNT 4.42 10^6/uL (4.30-6.10); WHITE BLOOD COUNT 8.1 10^3/uL (4.0-10.0)
[2024-07-25 13:45] LABS: CK-MB VALUE MASS 2.7 NG/ML (<3.6)
[2024-07-25 13:47] LABS: C REACTIVE PROTEIN QUANTITATIV < 0.50 MG/DL (<1.0); CPK CREATINE PHOSPHOKINASE 138 U/L (46-171); MB/CK RELATIVE INDEX 1.95 (< OR =4)
[2024-07-25 13:50] LABS: ERYTHROCYTE SEDIMENTATION RATE 17 mm/hr (0-20)
== END ==
LOC: M SFHCPLAZ 09:07
PROVIDERS: ATTEND Physician Assistant Medical
DX: R07.89 Other chest pain (principal); I30.1 Infective pericarditis